=== PATIENT | female | born 1950 | race Caucasian/White ===

== ENCOUNTER 2018-03-25 19:20 | Emergency (ER) | payer MEDICARE, OTHER, SELFPAY ==
[2018-03-25 19:20] VITALS: BP 152/74; PULSE 75; RESP 16; TEMP 36.8; O2SAT 98; BMI 37.3
--- NOTE | 2018-03-25 19:38 | RAD_ITS ---
STUDY: X-RAY - RIGHT KNEE REASON FOR EXAM: Female, 68 years old. Trauma TECHNIQUE: 3 view(s) of the knee. COMPARISON: None. FINDINGS: There is no evidence of fracture or dislocation. There are mild degenerative changes. There are no radiodense foreign bodies. RAD/Knee 3 Views IMPRESSION: No fracture or dislocation. Mild degenerative changes. Electronically Signed: Mino Mejia, at 20:29 EDT Tel , Service support ,
--- NOTE | 2018-03-25 20:12 | ED.VISSUMM ---
- ER Visit Summary Date of Service: 03/25/18 Chief Complaint: Right knee injury History of Present Illness: The patient is a 68 F presenting for evaluation secondary to a right knee injury. Patient states that she has chronic right knee pain, but today she was at a jew event and she turned around to talk to somebody twisting her right knee. She felt a sudden shot of pain with her right knee, now she is having some difficulty with ambulating. She denies any laxity in the leg, numbness or weakness. Review of systems otherwise negative. Physical Examination: Physical exam is unremarkable except for examination of the right lower extremity. Normal range of motion of the hip ankle and foot. Range of motion of the knee is somewhat limited due to pain, but there is normal extensor mechanism. Difficult to assess for effusion versus ligamentous laxity due to the patient's body habitus. Test Results: Right knee x-ray per radiology demonstrates degenerative changes in the knee Emergency Department Course and Treatment: Patient presented secondary to a knee injury. X-rays are negative. Ligamentous testing in the knee is difficult, but the patient likely has an element of the knee sprain. She was given an Jason wrap and Naprosyn she was recommended on rest ice elevation and compression of follow-up with orthopedics if she does not start to have improvements in a week or 2. Disposition: Discharge Impression: 1. Right knee sprain This note was generated with [employer] dictation software. It may contain incorrect words, spelling, and punctuation that were not noted in review of the chart prior to signing ED Disposition - Plan for ED Patient: Disposition: Home or Assisted Living Chief Complaint: Lower Extremity Injury Diagnosis: Right knee sprain Instructions: ED Sprain Knee Referrals: Kwesi Hernandez DO [STAFF PHYSICIAN] - 10-14 Days if not better
--- NOTE | 2018-03-25 20:18 | ED.DCSUM_ITS ---
- ER Visit Summary Date of Service: 03/25/18 Chief Complaint: Right knee injury History of Present Illness: The patient is a 68 F presenting for evaluation secondary to a right knee injury. Patient states that she has chronic right knee pain, but today she was at a hinduism event and she turned around to talk to somebody twisting her right knee. She felt a sudden shot of pain with her right knee, now she is having some difficulty with ambulating. She denies any laxity in the leg, numbness or weakness. Review of systems otherwise negative. Physical Examination: Physical exam is unremarkable except for examination of the right lower extremity. Normal range of motion of the hip ankle and foot. Range of motion of the knee is somewhat limited due to pain, but there is normal extensor mechanism. Difficult to assess for effusion versus ligamentous laxity due to the patient's body habitus. Test Results: Right knee x-ray per radiology demonstrates degenerative changes in the knee Emergency Department Course and Treatment: Patient presented secondary to a knee injury. X-rays are negative. Ligamentous testing in the knee is difficult , but the patient likely has an element of the knee sprain. She was given an Jason wrap and Naprosyn she was recommended on rest ice elevation and compression of follow-up with orthopedics if she does not start to have improvements in a week or 2. Disposition: Discharge Impression: 1. Right knee sprain This note was generated with [employer] dictation software. It may contain incorrect words, spelling, and punctuation that were not noted in review of the chart prior to signing ED Disposition - Plan for ED Patient: Disposition: Home or Assisted Living Chief Complaint: Lower Extremity Injury Diagnosis: Right knee sprain Instructions: ED Sprain Knee Referrals: Kwesi Hernandez DO [STAFF PHYSICIAN] - 10-14 Days if not better
[2018-03-25] MEDS: Naproxen 500 MG Tablet PO (20:54)
[2018-03-25 21:00] VITALS: RESP 16
--- NOTE | 2018-03-25 21:00 | ED.RN ---
REVIEWED D/C INSTRUCTIONS, FOLLOW UP CARE, AND S/S THAT WOULD WARRANT A RETURN TO THE ED WITH PT. PT VERBALIZED AN UNDERSTANDING AND DENIES FURTHER QUESTIONS FOR THIS RN. PT SKIN P/W/D, RESP EVEN AND UNLABORED, PT A&O X 3, NO DISTRESS NOTED. PT AMBULATED OUT OF ED, GAIT STEADY.
== END 2018-03-25 21:01 | disposition home or self-care (01) ==
PROVIDERS: Emergency Provider Emergency Medicine; Family Provider Student in an Organized Health Care Education/Training Program; PCP Student in an Organized Health Care Education/Training Program
DX: S83.91XA Sprain of unspecified site of right knee, initial encounter (principal); X50.1XXA Overexertion from prolonged static or awkward postures, initial encounter; Y93.89 Activity, other specified; Y92.22 Religious institution as the place of occurrence of the external cause; Y99.8 Other external cause status; E66.9 Obesity, unspecified; Z68.37 Body mass index [BMI] 37.0-37.9, adult; I10 Essential (primary) hypertension; E78.00 Pure hypercholesterolemia, unspecified; Z79.82 Long term (current) use of aspirin; Z79.899 Other long term (current) drug therapy
CPT/HCPCS: 73562; 99283

== ENCOUNTER 2018-10-05 12:47 | Emergency (ER) | payer MEDICARE, OTHER, SELFPAY ==
[2018-10-05 12:55] VITALS: BP 192/76; PULSE 72; RESP 16; TEMP 36.6; O2SAT 100; BMI 34.4
--- NOTE | 2018-10-05 13:10 | RAD_ITS ---
STUDY: X-RAY - LEFT KNEE REASON FOR EXAM: Female, 68 years old. Pain. No injury. TECHNIQUE: 3 view(s) of the knee. COMPARISON: None. FINDINGS: Medial compartment mild joint margin osteophytic lipping, minimal of the lateral compartment, moderate of the patellofemoral compartment. No significant knee joint effusion is evident. Periarticular soft tissues normal. Osseous structures acutely intact. RAD/Knee 3 Views IMPRESSION: Tricompartmental DJD, moderate severity patellofemoral joint, mild medial compartment, minimal lateral compartment. Electronically Signed: Brian Anna MD at 15:28 EST Tel , Service support ,
[2018-10-05] MEDS: oxyCODONE 5 MG Tablet PO (13:30)
--- NOTE | 2018-10-05 15:33 | ED.VISSUMM ---
- ER Visit Summary Date of Service: 10/05/18 Chief Complaint: Atraumatic left knee pain and swelling History of Present Illness: The patient is a 68 F who presents with atraumatic left knee pain and swelling. She states she was sitting her leg was in a flexed position. Her leg was stuck in a flexed position. She is reluctant to move her leg. She states she had a similar episode in [place] right knee. She was in a flexed position when that occurred. She has no known history of patella subluxation or dislocation. She has no known history of ACL or meniscal injury. She has no history of gout or pseudogout. She has no history of autoimmune disorder. Physical Examination: Patient was examined initially in the hallway. She was moved to a room and undressed so that an exam could be performed. Patient was reluctant to flex or extend the left knee. She was able to hold against gravity at 120 degrees of extension. The patella is not ballotable. There is a small effusion. There is significant discomfort with varus valgus stress testing. There is no laxity compared to the uninvolved side. Once patient was medicated and undressed Luna's test was negative. Modified Judy's test was negative. There is minimal joint line tenderness medially. There is no pain to palpation of the palpable fossa nodes or palpable mass or fullness. DP and PT pulses are palpable. She states the pain resolved and she is now able to ask her knee and extend her knee. Patella apprehension test was positive. Test Results: Three-view x-ray of the knee was obtained which reveals no fracture or significant arthritic changes. There is a small effusion noted. Emergency Department Course and Treatment: Oral analgesia, examination and x-ray per nurse protocol Treatment Plan: Patient was referred to orthopedics for follow-up suspect patella subluxation Disposition: Discharged home in stable improved condition Impression: Atraumatic left knee pain suspect secondary to patella subluxation This note was generated with [employer] dictation software. It may contain incorrect words, spelling, and punctuation that were not noted in review of the chart prior to signing ED Disposition - Plan for ED Patient: Disposition: Home or Assisted Living Chief Complaint: Lower Extremity Injury Instructions: ED Dislocation Patella Prescriptions: Hydrocodone Bitart/Apap 5-325 [[place] 5MG-325MG] 1 tab PO Q6H PRN PRN 3 Days #10 tab PRN Reason: Pain Referrals: Edd Arizmendi DO [Primary Care Provider] - Radha Gomez DO [STAFF PHYSICIAN] - 1 Week
== END 2018-10-05 15:52 | disposition home or self-care (01) ==
PROVIDERS: Emergency Provider Emergency Medicine; Family Provider Student in an Organized Health Care Education/Training Program; PCP Student in an Organized Health Care Education/Training Program
DX: M25.562 Pain in left knee (principal); M25.462 Effusion, left knee; I10 Essential (primary) hypertension; Z79.899 Other long term (current) drug therapy
CPT/HCPCS: 73562; 99284

== ENCOUNTER 2018-11-16 10:00 | Outpatient (RCR) | payer MEDICARE, OTHER, SELFPAY ==
[2018-10-13 08:21] VITALS: BMI 34.4
--- NOTE | 2018-10-17 10:56 | HP.PTEVAL ---
Patient's Visit Information CLAUDIA GRADY is a 68 year old F referred to Physical Therapy by Radha Gomez DO with a diagnosis of B knee OA. Date of Evaluation: 10/17/18 Physical Therapist: Sean Nelson DPT, OCS, CSCS - Visit Plan Frequency: 2x /Week Duration: 4-6 Weeks Plan: 2x/week for 4-6 weeks for water therapy for quad and hip flexor stretches, quad and HS adn hip strength adn ROM exercises adn teach for I. may need to progress to land ex depends on patients desires. - Subjective Findings: Both knees hurt, a little painful. But they go out. R knee went out in March of last year pivotting and popping and hurting and had to grab wall quickly. L knee bothered her at [place] on October 05 walking at [place] and hard time moving. Could not get up out of chair due to locked L knee, called squad and took to ER and had x rays which showed OA PF. Gave a pill which helped with pain. Sent to Orthopedic. Ortho gave her brace for L leg which helps. On hydrocodone whcih she has not taken and sent for PT. Using cane today and doesn't always. Helps when she is outside. Lives [place] with gravel. Sleeps well. Doing cande ctivities just slowly. Not employed. Basic aDLS are OK but slow. 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 Hard to pick stuff up and carry it due to pain. Uses walker when it hurts more. - Pain L knee Pain Intensity (Out of 10): 0 Pain Intensity Range: 0, 2 R knee Pain Intensity (Out of 10): 0 Pain Intensity Range: 0, 2 - Objective Walks with cane slow but I, trasnfers slow but I. Walks without AD I btu slow, goes better as she walks more, no antalgia or matt today. steps prefers L LE and needs rail. Transferss to table with labor but I. B knee AROM 0-115 aROM, stiff at end range. strength 4/5 in knee ext adn 4- in knee flexion without pain today. hip AROM WFL except ext to 0 degrees only. Weak at 4-/5 hip ext and abd and 4/5 flexion. Sensation LE WNL to gross light touch. + patellar grind, - bounce home. Tender under patella B. - Goals Goal 1:: I approp knee ex to maximize ROM and minimize pain Goal Time Frame: 4-6 Weeks Goal 2:: Feel knees 75% better, pain no greater than 1/10 . Goal Time Frame: 4-6 Weeks - Rehabilitation Potential Physical Therapy Diagnosis: B Knee OA Rehabilitation Potential: Fair - Anticipated Interventions Patient/Client Instruction: Educate patient on: Condition, Plan of Care For the Purpose of:: To decrease pain, To increase ROM, To improve muscle performance and motor function Therapeutic Exercise to Include: Strength training, Flexibilty training, In an aquatic setting, Passive ROM, Active ROM For the Purpose of:: To decrease pain, To increase ROM, To improve nutrient delivery to tissue, To increase tolerance to activity/condition/position Thank you for the opportunity to evaluate your patient. For Medicare and Medicare HMO plans, please review the plan of care and approve it. It will need to be FAXED BACK to us at [phone] for Medicare purposes. For Medicare only, by signing this I certify the plan of care. Please let me know if there are questions or concerns regarding this plan of care. Physician Signature: Date:
--- NOTE | 2019-01-10 15:08 | HP.PTDCSUM ---
HP - PT D/C Summary It has been my pleasure to treat CLAUDIA GRADY under orders from Radha Gomez DO, for the diagnosis of B knee OA for a total of 8 visit(s). Discharge Date: 11/16/18 Please see the following information for a summary of their discharge status. - Subjective Subjective: Very impressed with the pool. No pain after water therapy. No real pain since therapy the other day. It is mostly gone. Notices it if she gets up wrong. Walking too fast may bother her. Sleeping well. To doctor next week. Has access to pool in summer. Doinmg a bunch exercises. - Pain L knee Pain Intensity (Out of 10): 0 R knee Pain Intensity (Out of 10): 0 - Overall Improvement % Improvement: 99 - Objective Objective/Function: 0-115 R knee aROM, 0-110 on left. No tenderness at knees today and ptellas moving well. Walking with slight avoidance of full extension but comfortably and happy. OVERALL DOING VERY WELL - Goals Goal 1:: I approp knee ex to maximize ROM and minimize pain Goal Progress: Goal Met Goal 2:: Feel knees 75% better, pain no greater than 1/10 . Goal Progress: Goal Met - Plan Plan: D/C to [facility], hot tub and pool at home in summer. - D/C Information Discharge Comments: Pt wishes to continue via [facility] and will notify doctor if pain returns. If there are questions or concerns regarding this patient's physical therapy, please feel free to call me at [phone]. Thank you for the referral of this patient. Sincerely, Sean Nelson, DPT, OCS, CSCS
== END 2018-11-16 19:00 | disposition home or self-care (01) ==
LOC: PT 10:00
PROVIDERS: Family Provider Student in an Organized Health Care Education/Training Program; PCP Student in an Organized Health Care Education/Training Program; Referring Provider Orthopaedic Surgery; Visit Provider Orthopaedic Surgery
DX: M17.0 Bilateral primary osteoarthritis of knee (principal)
CPT/HCPCS: 97113; 97162; 97530

== ENCOUNTER → 2019-12-06 09:49 | Outpatient (CLI) | payer MEDICARE, OTHER, SELFPAY ==
[2019-12-06 09:40] VITALS: BMI 34.4
[2019-12-06 10:21] LABS: Hemoglobin 13.8 g/dL (12.0-15.0); Mean Corp Hgb Conc 32.9 g/dL (32-36); Mean Corpuscular Hgb 29.6 pg (27.0-32.0); Mean Corpuscular Volume 89.9 fL (81-99); Mean Platelet Vol. 9.2 fl (6.2-12.0); Platelet Count 180 K/mm3 (150-450); RBC Distribution Width SD 42.4 fl (35.1-43.9); Red Blood Count 4.67 M/mm3 (4.2-5.4)
[2019-12-06 10:38] LABS: Hemoglobin A1c 6.8 % (4.2-6.3)
[2019-12-06 10:51] LABS: Vitamin B12 436 pg/mL (211-911)
[2019-12-06 11:05] LABS: AST(SGOT) 19 U/L (15-37); Alanine Aminotransfer ALT/SGPT 24 U/L (13-56); Alkaline Phosphatase 97 U/L (45-117); Anion Gap 3 (5-15); BUN 15 mg/dL (7-18); BUN/Creat Ratio 13.9 RATIO (10-20); Chloride 110 mmol/L (98-107); Creatinine, Serum 1.08 mg/dL (0.55-1.02); EST Glomerular Filtration Rate 54 mL/min (>60); Est Glom Filt Rate - Afr Amer 65 mL/min (>60); Glucose 141 mg/dL (74-106); Potassium 4.2 mmol/L (3.5-5.1); Sodium Level 141 mmol/L (136-145)
== END ==
PROVIDERS: PCP Student in an Organized Health Care Education/Training Program; Referring Provider Psychiatry & Neurology Neurology; Visit Provider Psychiatry & Neurology Neurology
DX: I69.322 Dysarthria following cerebral infarction (principal); I10 Essential (primary) hypertension; E11.9 Type 2 diabetes mellitus without complications; G31.84 Mild cognitive impairment of uncertain or unknown etiology
CPT/HCPCS: 36415; 80053; 82607; 82746; 83036; 84443; 85027

== ENCOUNTER → 2019-12-11 07:40 | Outpatient (CLI) | payer MEDICARE, OTHER, SELFPAY ==
[2019-12-06 09:40] VITALS: BMI 34.4
--- NOTE | 2019-12-11 07:42 | CDU_ITS ---
Reason For Study: CVA Rt. Velocities/BP Lt. Velocities/BP Prox CCA 112.5/12.1 cm/sec. Prox CCA 83.8/12.1 cm/sec. Mid CCA 93/13.4 cm/sec. Mid CCA 90.3/13.4 cm/sec. Dist CCA 79.9/16 cm/sec. Dist CCA 76/16 cm/sec. Prox ICA 59.1/9.5 cm/sec. Prox ICA 47.5/10.7 cm/sec. Mid ICA 89.1/21.3 cm/sec. Mid ICA 90/22 cm/sec. Dist ICA 93/21.3 cm/sec. Dist ICA 82.7/21.2 cm/sec. Rt. ICA/CCA = 1.0. Lt. ICA/CCA = 1.1. Prox ECA 112.5/8.2 cm/sec. Prox ECA 90.3/5.6 cm/sec. Rt. Vert. 63/13.4 cm/sec. Lt. Vert. 48.5/10.7 cm/sec. Right Extracranial There is homogeneous, smooth atherosclerotic plaque noted in the right common carotid artery. There is homogeneous, smooth atherosclerotic plaque noted in the right internal carotid artery. There is intimal thickening but no significant atherosclerotic plaque noted in the right external carotid artery. Antegrade flow is noted in the right vertebral artery. Left Extracranial There is homogeneous, smooth atherosclerotic plaque noted in the left common carotid artery. There is intimal thickening but no significant atherosclerotic plaque noted in the left internal carotid artery. There is no significant atherosclerotic plaque noted in the left external carotid artery. Antegrade flow is noted in the left vertebral artery. Procedure Carotid Duplex [id number]. Exam performed in department. Interpretation Summary Smooth plaque at the origin of the right internal carotid artery with less than 50% stenosis <50% stenosis right external carotid No hemodynamically significant plaque at the proximal left internal carotid artery with less than 50% stenosis. <50% stenosis left external carotid Patent, antegrade bilateral vertebrals Ordering Physician: Kelvin García Referring Physician: Edd Kong Performed By: Gaviota Cade RVT
== END ==
PROVIDERS: PCP Student in an Organized Health Care Education/Training Program; Referring Provider Psychiatry & Neurology Neurology; Visit Provider Psychiatry & Neurology Neurology
DX: R42 Dizziness and giddiness (principal)
CPT/HCPCS: 93880

== ENCOUNTER 2024-09-10 14:15 | Inpatient (IN) | payer MEDICARE, OTHER, SELFPAY ==
[2024-09-10 14:18] VITALS: BP 74/55; PULSE 77; RESP 16; TEMP 36.6; O2SAT 100; BMI 28.0
[2024-09-10 14:34] VITALS: BP 117/64; PULSE 70; RESP 28
--- NOTE | 2024-09-10 14:46 | EKG12_ITS ---
Test Reason : WEAKNESS Blood Pressure : */* mmHG Vent. Rate : 70 BPM Atrial Rate : 70 BPM P-R Int : 126 ms QRS Dur : 78 ms QT Int : 416 ms P-R-T Axes : 40 47 54 degrees QTcB Int : 449 ms Normal sinus rhythm Normal ECG Confirmed by Kwesi Irving ([id number]), supervising film or videotape editor NATAN TORRES ([id number]) on 09/12/2024 5:54:51 AM Referred By: Confirmed By: Kwesi Irving
--- NOTE | 2024-09-10 14:47 | EX.ED.DYSGE1 ---
HPI History of Present Illness Chief Complaint: Weakness Informant: patient, spouse/S.O. and EMS Narrative Narrative: 54-year-old female generalized weakness to the point of not being able to get up and around at all over maybe the past month or so. states he is not at home all the time due to working and so they have had home health and physical therapy but she is so weak that when they evaluated her today they called their PCP and all decided that she should be sent here to the ER. The patient has no focal complaints right now. Apparently, she was diagnosed with melanoma on her left lower leg/foot, she had it surgically removed and had skin graft. She was on oral immunotherapy and developed bullous pemphigoid in the summer and that had to be discontinued. She then developed a couple of lesions on her left lower leg more proximal to this, she has had other injections and treatments, a flareup of the bullous pemphigoid couple weeks ago, resulting in her being put on a prednisone taper, she has been on that for about 2 weeks now, and tapering at the end of it. Her appetite has been extremely poor and her fluid intake has been very poor. She does feel lightheaded at times when she stands up but she has had no syncopal or near syncopal episodes. She denies any headaches or focal neurologic symptoms. She vomits on occasion, no blood and no melena or bright red blood per rectum. Stools are loose when she has them which is uncommon since she is not eating. [facility] Medical History Tremor Obesity (BMI 35.0-39.9 without comorbidity) Primary osteoarthritis of both knees Postmenopausal disorder Microalbuminuria due to type 2 diabetes mellitus Hypercholesterolemia History of nephrolithiasis History of hypertension history of dyslipidemia Hypertension Diabetes Home Medications ?Medication ?Instructions ?Recorded ?Last Taken ?Type atorvastatin 10 mg tablet 10 mg PO QHS 03/25/18 Unknown History blood sugar diagnostic #10 ea 11/29/19 Unknown History lancets 33 gauge #100 ea 11/29/19 Unknown History lisinopril 20 mg tablet 20 mg PO DAILY #30 tabs 01/03/20 Unknown Rx aspirin 81 mg capsule 81 mg PO DAILY 09/10/24 Unknown History calcium 1,000 mg (as 1 tab PO DAILY osteoporosis 09/10/24 Unknown History carbonate)-vitamin D3 20 mcg (800 unit) tablet cholecalciferol (vitamin D3) 50 50 mcg PO DAILY 09/10/24 Unknown History mcg (2,000 unit) tablet (Vitamin D3) clobetasol 0.05 % topical ointment topical BID 09/10/24 Unknown History doxycycline monohydrate 100 mg 100 mg PO BID 09/10/24 Unknown History capsule metoprolol succinate 50 mg 50 mg PO DAILY 09/10/24 Unknown History tablet,extended release 24 hr ondansetron 8 mg disintegrating 8 mg PO Q8H PRN PRN nausea/vomiting 09/10/24 Unknown History tablet prednisone 10 mg tablet 10 mg PO DAILY RASH 09/10/24 Unknown History sertraline 50 mg tablet 50 mg PO QHS depressive disorder 09/10/24 Unknown History sulfamethoxazole 800 1 tab PO .COMPLEX 09/10/24 Unknown History mg-trimethoprim 160 mg tablet triamcinolone acetonide 0.1 % topical BID 09/10/24 Unknown History topical ointment Allergy/AdvReac Type Severity Reaction Status Date / Time adhesive tape Allergy Rash Verified 09/10/24 14:18 aspirin AdvReac Upset Verified 09/10/24 14:18 Stomach Family History (Updated 12/06/19 @ 08:44 by June Holt) Father , @ 75 Lung cancer Mother Colon cancer Heart disease CVA (cerebral vascular accident) Sudden cardiac Sister , at 60 Cancer Sister , at 45 Cancer of kidney Surgical History History of left knee replacement History of vaginal hysterectomy History of tonsillectomy History of colonoscopy h/o plantar fascitis surgery Social History Smoking Status: Never smoker alcohol intake: current details: Social substance use type: does not use what type of physical activity do you participate in: walking ROS ROS ED Constitutional Constitutional ED: Reports fatigue, poor appetite and weakness; Denies chills or fever(s) Eyes Eyes: Denies change in vision or diplopia ENT ENT ED: Denies rhinorrhea or sore throat Cardiovascular Cardiovascular: Denies chest pain or palpitations Respiratory/Chest Respiratory/Chest: Reports dyspnea on exertion; Denies cough or dyspnea Gastrointestinal Gastrointestinal: Reports vomiting; Denies abdominal pain or diarrhea Genitourinary Genitourinary ED: Reports decreased urination and drinking/eating less; Denies dysuria or hematuria Musculoskeletal Musculoskeletal: Denies back pain or neck pain Integumentary Denies abscess or rash Neurologic Neurologic: Reports other Details: No focal weakness. No speech difficulty. No confusion. ; Denies headache(s) or paresthesias Psychiatric Psychiatric: Denies anxiety or suicidal thoughts EXAM Physical Exam Const Vital Signs: 09/10/24 14:18 09/10/24 14:34 09/10/24 15:52 Temperature 97.8 F Temperature Source Oral Pulse Rate 77 70 65 Respiratory Rate 16 28 H 11 L Blood Pressure 74/55 L 117/64 108/63 Blood Pressure Mean 61 81 78 Pulse Ox 100 97 Oxygen Delivery Method Room Air Room Air 09/10/24 16:00 09/10/24 16:00 Temperature 98.7 F Temperature Source Oral Pulse Rate 66 65 Respiratory Rate 12 15 Blood Pressure 114/57 L 120/62 Blood Pressure Mean 74 81 Pulse Ox 98 97 Oxygen Delivery Method Room Air Room Air Positive well nourished and well developed General Appearance ED: well developed and NAD HEENT Reports dry mucous membranes normocephalic and atraumatic Mouth ED: Yes dry mucous membranes Mouth: dry mucous membranes Eyes PERRL and EOMs intact bilaterally Neck full ROM and supple Resp normal respiratory effort and clear to auscultation bilaterally Cardio regular rate, regular rhythm and no murmurs Rate: Negative for tachycardic GI non-tender and non-distended Auscultation: normoactive bowel sounds Palpation: soft Back/Spine no CVA tenderness General Back: other FROM Extremity normal to inspection General Extremety ED: Negative for edema, pulses abnormal or tenderness General Extremity: Negative for edema or pulses abnormal Neuro oriented x3, CN's II-XII intact bilaterally and no sensory deficits noted Sensorium / Orientation: awake and alert Motor Exam: general weakness Psych mental status grossly normal Skin Skin Narrative: Multiple healing lesions on both upper extremities, some scabs that are small, some healing ruptured bullae mostly on her left hand and wrist area. Nothing that appears to be acutely infected or tender. These are all from recent flareup of bullous pemphigoid according to . MDM MDM MDM Narrative Medical decision making narrative: Clinically patient appears weak and dehydrated. Her initial blood pressure here was 74/55 but prior to my evaluation I came up to 117/64. My guess is that she is hypovolemic so IV fluids provided while obtaining workup for metabolic disorders, hematologic disorders, infectious disorders. 1 view chest x-ray my interpretation is negative for pneumonia. Her EKG is normal. She has a high white blood count with a left shift, most likely due to the prednisone she has been on, as well as an elevated lactic acid as well as FUENTES presumably due to prerenal azotemia/dehydration, and mild hyperkalemia, she does not appear to have any significant EKG changes from this, so other than hydration and rechecking the potassium I do not think that needs other emergent treatment. I am obtaining blood cultures, but her urine appears clean and I see no obvious source of infection for her significant leukocytosis, also given the prednisone that she is on that explains this, until cultures return I do not think she needs to be on antibiotics right now. I do think admitting her to the hospital is warranted. Discussed with hospitalist. Lab Data Attestation: I reviewed the patient's lab results. Labs: Laboratory Results - last 24 hr 09/10/24 09/10/24 15:21 16:20 WBC 24.8 H RBC 4.51 Hgb 12.9 Hct 41.0 MCV 90.9 MCH 28.6 MCHC 31.5 L RDW Std Deviation 46.2 H RDW Coeff of Natali 13.9 Plt Count 102 L MPV 9.5 Immature Gran % (Auto) 2.400 H Neut % (Auto) 89.4 H Lymph % (Auto) 3.8 L [place] % (Auto) 4.2 Eos % (Auto) 0.0 Baso % (Auto) 0.2 Absolute Neuts (auto) 22.2 H Absolute Lymphs (auto) 0.94 Nucleated RBC % 0 Differential Comment SEE COMMENT Platelet Estimate SLT DEC RBC Morphology N CHROM Anisocytosis RARE Macrocytosis RARE Sodium 132 L Potassium 5.2 H Chloride 104 Carbon Dioxide 19.0 L Anion Gap 9 BUN 70 H Creatinine 2.13 H Estim Creat Clear Calc 29.32 Est GFR (MDRD) Af Amer 29 L Est GFR (MDRD) Non-Af 24 L BUN/Creatinine Ratio 32.9 H Glucose 133 H Lactic Acid 2.5 H* Calcium 9.3 Total Bilirubin 0.80 AST 46 H ALT 38 Alkaline Phosphatase 188 H Troponin I High Sens 8 Total Protein 6.2 L Albumin 2.3 L Globulin 3.9 Albumin/Globulin Ratio 0.6 L Urine Color Yellow Urine Clarity Clear Urine pH 5.0 Ur Specific [place] 1.020 Urine Protein 15 H Urine Glucose (UA) Normal Urine Ketones Negative Urine Occult Blood Negative Urine Nitrite Negative Urine Bilirubin Negative Urine Urobilinogen Normal Ur Leukocyte Esterase Negative Urine RBC 0-5 SEEN Urine WBC 5-10 SEEN Ur Squamous Epith Cells 0-5 SEEN Urine Bacteria RARE Hyaline Casts 0-5 SEEN Urine Mucus 1+ Radiography Diagnostic Testing: Clinical Impression(s) from Imaging Studies Chest X-Ray 09/10/24 15:25 IMPRESSION: No acute abnormality is seen. Electronically Signed: Taz Orr MD at 15:42 EST , Rhythm Strip Rhythm Strip: Sinus Rhythm Rate: 70 Ectopy: None EKG Initial EKG: Attestation: I personally reviewed and interpreted this EKG as follows: Interpretation: Sinus Rhythm and No Acute Injury Pattern Comments: Nml axis & intervals; nml EKG Management Discussion w/another healthcare provider: Hospitalist Discharge Plan Dx/Rx/DC Orders Clinical Impression: Debility, FUENTES (acute kidney injury), Acute dehydration, Hyperkalemia, diminished renal excretion Disposition Disposition: [facility]
[2024-09-10] MEDS: 0.9% Normal Saline (1000mL) 1,000 ML 1000 ML IV (15:19)
--- NOTE | 2024-09-10 15:25 | RAD_ITS ---
STUDY: X-RAY CHEST REASON FOR EXAM: Female, 74 years old. Weakness TECHNIQUE: Single AP portable view of the chest. COMPARISON: Comparison is made with prior study dated August 09, 2006. FINDINGS: EKG electrodes are seen. The lungs are clear and expanded. There is no demonstrated pleural abnormality. Normal size heart. Normal mediastinum and sisi. Normal visualized pulmonary arteries. There is atherosclerotic calcification of the aortic arch with tortuosity. There are diffuse degenerative changes of the visualized thoracic spine. Normal visualized ribs, clavicles, and shoulders. There is no demonstrated abnormality of the visualized soft tissue structures of the upper abdomen. RAD/Chest 1 View (Portable) IMPRESSION: No acute abnormality is seen. Electronically Signed: Taz Orr MD at 15:42 EST ,
[2024-09-10 15:31] LABS: Absolute Lymphocyte Count 0.94 X10^3/uL (0.83-4.51); Absolute Neutrophil Count 22.2 X10^3/uL (2.0-7.7); Basophil# 0.05 X10^3/uL; Basophil% 0.2 % (0-1); Hemoglobin 12.9 g/dL (12.0-15.0); Lymphocyte # 0.94 X10^3/ul (0.83-4.51); Lymphocyte % 3.8 % (19-41); Mean Corpuscular Hgb 28.6 pg (27.0-32.0); Mean Corpuscular Volume 90.9 fL (81-99); Mean Platelet Vol. 9.5 fl (6.2-12.0); Monocyte# 1.03 X10^3/uL; Monocyte% 4.2 % (0-10); NRBC Flagged by Analyzer 0 % (0-5); Neutrophil # 22.15 X10^3/uL (2.7-7.7); Neutrophil % 89.4 % (47-70); POSITIVE DIFFERENTIAL YES; Platelet Count 102 K/mm3 (150-450); RBC Distribution Width CV 13.9 % (11.6-14.6); RBC Distribution Width SD 46.2 fl (35.1-43.9); Red Blood Count 4.51 M/mm3 (4.2-5.4); White Blood Count 24.8 K/mm3 (4.4-11.0)
[2024-09-10 15:41] LABS: Differential Indicated SCAN CRITERIA MET
[2024-09-10 15:52] VITALS: BP 108/63; PULSE 65; RESP 11; O2SAT 97
[2024-09-10 15:55] LABS: Mean Corp Hgb Conc 31.5 g/dL (32-36)
[2024-09-10 15:56] LABS: Anisocytosis RARE; Macrocytosis RARE; Platelet Estimate SLT DEC (ADEQ); Red Cell Morphology N CHROM NORMAL (NORM C&C)
[2024-09-10 16:00] VITALS: BP 114/57; BP 120/62; PULSE 65; PULSE 66; RESP 12; RESP 15; TEMP 37.1; O2SAT 97; O2SAT 98
[2024-09-10 16:12] LABS: Lactic Acid 2.5 mmol/L (0.4-1.9)
[2024-09-10 16:13] LABS: ALB/GLOB Ratio 0.6 RATIO (0.9-2.4); AST(SGOT) 46 U/L (15-37); Alanine Aminotransfer ALT/SGPT 38 U/L (13-56); Albumin, Serum 2.3 g/dL (3.2-5.0); Alkaline Phosphatase 188 U/L (45-117); Anion Gap 9 (5-15); BUN 70 mg/dL (7-18); BUN/Creat Ratio 32.9 RATIO (10-20); Calcium,Total 9.3 mg/dL (8.5-10.1); Chloride 104 mmol/L (98-107); Creatinine, Serum 2.13 mg/dL (0.55-1.02); EST Glomerular Filtration Rate 24 mL/min (>60); Est Glom Filt Rate - Afr Amer 29 mL/min (>60); Estimated Creatinine Clearance 29.32 ml/min; Globulin 3.9 g/dL (2.2-4.2); Glucose 133 mg/dL (74-106); Potassium 5.2 mmol/L (3.5-5.1); Protein, Total 6.2 g/dL (6.4-8.2); Sodium Level 132 mmol/L (136-145); Troponin-I HS 8 pg/mL (3.0-54.0)
[2024-09-10 16:45] LABS: Color, Urine Yellow (Yellow); Glucose, Dipstick Normal (Normal); Ketone-Dipstick Negative (Negative); Leukocyte Esterase-Dipstick Negative /ul (Negative); Nitrite-Dipstick Negative (Negative); Occult Blood-Urine Negative /ul (Negative); Protein-Dipstick 15 mg/dl (Negative); Urine Bilirubin Dipstick Negative (Negative); Urine Clarity Clear (Clear); Urine Urobilinogen Normal (Normal)
[2024-09-10 16:58] LABS: Hyaline Cast 0-5 SEEN /lpf (0-5); Squamous Epithelial Cells - UA 0-5 SEEN /hpf (5-10); White Blood Cells 5-10 SEEN /hpf (0-5)
[2024-09-10 17:00] LABS: Bacteria RARE /hpf (None Seen); Mucous, Urine 1+ /hpf (<or=2+); Red Blood Cells-Urine 0-5 SEEN /hpf (0-5)
[2024-09-10 18:00] VITALS: BP 117/62; PULSE 67; RESP 15; TEMP 36.6; O2SAT 99
--- NOTE | 2024-09-10 18:33 | PCM.HP.STD ---
HPI - General General Date of Admission: 09/10/24 Date of Service: 09/10/24 Chief Complaint: generalized weakness HPI Narrative CLAUDIA GRADY, is a 74 F with history of melanoma status post removal, bullous pemphigoid after immunotherapy with recent flare, hypertension, depression who presented [facility] ED 09/10/2024 with increasing weakness and poor p.o. intake over the past few weeks. In the ED patient had white blood cell count of 25 but was found to be on steroids, sodium of 132 with potassium of 5.2 and a BUN of 70 with creatinine of 2.13 however no lab work in the past several years for recent baseline. Additionally lactic acid of 2.5. Patient overall weak and feeling unwell, initially blood pressure low but came up with IV fluids. Due to her generalized weakness, suspected FUENTES, generally doing unwell hospitalist contacted for admission. Discussed with ED physician and patient has no fever, no other focal suggestions of infection so cultures obtained but no antibiotics were started. Patient evaluated with at bedside who provided much of the history. Patient has been generally weak and had very poor p.o. intake over the past several weeks and over the past 4 days has further declined to the point where she hardly gets up more than just to go to the bathroom but has had decreased urination due to her poor p.o. intake. Gets some occasional nausea but this has been attributed to not eating much food and still taking her medications. Has had some intermittent loose stool, no blood in the stool, no abdominal pain. Of note she has history of melanoma that was removed and was placed on immunotherapy over the summer she developed bullous pemphigoid due to this so it was stopped but still gets flares of bullous pemphigoid. 2 weeks ago she had another flare and has been on steroids since that time on a tapering course, is towards the end but is still on steroids. Has been getting some dizziness occasionally, some possible shortness of breath and possible cough but patient and report this is secondary and is also been over the past couple of weeks but the weakness and poor p.o. preceded anything else. No fevers or chills, no burning on urination. Patient still has some lesions of her pemphigoid however they are significantly improved from previous and they do not note any of them that appear to be infected. [facility] Medical History Tremor Obesity (BMI 35.0-39.9 without comorbidity) Primary osteoarthritis of both knees Postmenopausal disorder Microalbuminuria due to type 2 diabetes mellitus Hypercholesterolemia History of nephrolithiasis History of hypertension history of dyslipidemia Hypertension Diabetes Home Medications ?Medication ?Instructions ?Recorded ?Last Taken ?Type atorvastatin 10 mg tablet 10 mg PO QHS 03/25/18 Unknown History blood sugar diagnostic #10 ea 11/29/19 Unknown History lancets 33 gauge #100 ea 11/29/19 Unknown History lisinopril 20 mg tablet 20 mg PO DAILY #30 tabs 01/03/20 Unknown Rx aspirin 81 mg capsule 81 mg PO DAILY 09/10/24 Unknown History calcium 1,000 mg (as 1 tab PO DAILY osteoporosis 09/10/24 Unknown History carbonate)-vitamin D3 20 mcg (800 unit) tablet cholecalciferol (vitamin D3) 50 50 mcg PO DAILY 09/10/24 Unknown History mcg (2,000 unit) tablet (Vitamin D3) clobetasol 0.05 % topical ointment topical BID 09/10/24 Unknown History doxycycline monohydrate 100 mg 100 mg PO BID 09/10/24 Unknown History capsule metoprolol succinate 50 mg 50 mg PO DAILY 09/10/24 Unknown History tablet,extended release 24 hr ondansetron 8 mg disintegrating 8 mg PO Q8H PRN PRN nausea/vomiting 09/10/24 Unknown History tablet prednisone 10 mg tablet 10 mg PO DAILY RASH 09/10/24 Unknown History sertraline 50 mg tablet 50 mg PO QHS depressive disorder 09/10/24 Unknown History sulfamethoxazole 800 1 tab PO .COMPLEX 09/10/24 Unknown History mg-trimethoprim 160 mg tablet triamcinolone acetonide 0.1 % topical BID 09/10/24 Unknown History topical ointment Allergy/AdvReac Type Severity Reaction Status Date / Time adhesive tape Allergy Rash Verified 09/10/24 14:18 aspirin AdvReac Upset Verified 09/10/24 14:18 Stomach Family History (Updated 12/06/19 @ 08:44 by June Holt) Father , @ 75 Lung cancer Mother Colon cancer Heart disease CVA (cerebral vascular accident) Sudden cardiac Sister , at 60 Cancer Sister , at 45 Cancer of kidney Surgical History History of left knee replacement History of vaginal hysterectomy History of tonsillectomy History of colonoscopy h/o plantar fascitis surgery Social History Smoking Status: Never smoker alcohol intake: current details: Social substance use type: does not use what type of physical activity do you participate in: walking ROS ROS Narrative General: Denies fever/chills HENT: denies stuffy nose, denies sore throat EYES: Denies changes in vision Resp: Some intermittent cough and intermittent shortness of breath with exertion Cardiac: Denies chest pain GI: Denies abdominal pain, some intermittent nausea and intermittent loose stools : No burning on urination, perhaps some decreased urination due to her poor p.o. intake Extremity: Denies any new swelling MSK: Generalized weakness Neuro: Denies any numbness/tingling Heme: Denies any bleeding or bruising Skin: Bullous pemphigoid especially on hands in process of healing Psychiatric: No complaints voiced Vital Signs Vital Signs Vital Signs: 09/10/24 14:18 09/10/24 14:34 09/10/24 15:52 Temperature 97.8 F Temperature Source Oral Pulse Rate 77 70 65 Respiratory Rate 16 28 H 11 L Blood Pressure 74/55 L 117/64 108/63 Blood Pressure Mean 61 81 78 Pulse Ox 100 97 Oxygen Delivery Method Room Air Room Air 09/10/24 16:00 09/10/24 16:00 09/10/24 18:00 Temperature 98.7 F 97.8 F Temperature Source Oral Pulse Rate 66 65 67 Respiratory Rate 12 15 15 Blood Pressure 114/57 L 120/62 117/62 Blood Pressure Mean 74 81 80 Pulse Ox 98 97 99 Oxygen Delivery Method Room Air Room Air Weight Weight: 91.172 kg Body Mass Index (BMI) 28.0 Physical Exam Narrative General: Alert, no apparent distress HEENT: Atraumatic, normocephalic Eyes: Anicteric, normal conjunctiva, extraocular movements grossly intact Neck: Supple Respiratory: Clear to auscultation bilaterally, normal respiratory effort Cardiovascular: Regular rate and rhythm GI: Soft, nontender, nondistended Extremities: No edema Musculoskeletal: Moving all extremities Neuro: No overt focal neurological deficits Skin: Lesions on chin and hands in various phases of healing, nothing with active drainage appreciated Psych: Cooperative Results Lab / Micro Data 09/10/24 15:21 09/10/24 15:21 Labs: Laboratory Results - last 24 hr 09/10/24 15:21: WBC 24.8 H, RBC 4.51, Hgb 12.9, Hct 41.0, MCV 90.9, MCH 28.6, MCHC 31.5 L, RDW Std Deviation 46.2 H, RDW Coeff of Natali 13.9, Plt Count 102 L, MPV 9.5, Immature Gran % (Auto) 2.400 H, Neut % (Auto) 89.4 H, Lymph % (Auto) 3.8 L, [place] % (Auto) 4.2, Eos % (Auto) 0.0, Baso % (Auto) 0.2, Absolute Neuts (auto) 22.2 H, Absolute Lymphs (auto) 0.94, Nucleated RBC % 0, Differential Comment SEE COMMENT, Platelet Estimate SLT DEC, RBC Morphology N CHROM, Anisocytosis RARE, Macrocytosis RARE, Sodium 132 L, Potassium 5.2 H, Chloride 104, Carbon Dioxide 19.0 L, Anion Gap 9, BUN 70 H, Creatinine 2.13 H, Estim Creat Clear Calc 29.32, Est GFR (MDRD) Af Amer 29 L, Est GFR (MDRD) Non-Af 24 L, BUN/Creatinine Ratio 32.9 H, Glucose 133 H, Lactic Acid 2.5 H*, Calcium 9.3, Total Bilirubin 0.80, AST 46 H, ALT 38, Alkaline Phosphatase 188 H, Troponin I High Sens 8, Total Protein 6.2 L, Albumin 2.3 L, Globulin 3.9, Albumin/Globulin Ratio 0.6 L 09/10/24 16:20: Urine Color Yellow, Urine Clarity Clear, Urine pH 5.0, Ur Specific [place] 1.020, Urine Protein 15 H, Urine Glucose (UA) Normal, Urine Ketones Negative, Urine Occult Blood Negative, Urine Nitrite Negative, Urine Bilirubin Negative, Urine Urobilinogen Normal, Ur Leukocyte Esterase Negative, Urine RBC 0-5 SEEN, Urine WBC 5-10 SEEN, Ur Squamous Epith Cells 0-5 SEEN, Urine Bacteria RARE, Hyaline Casts 0-5 SEEN, Urine Mucus 1+ Rhythm Strip Rhythm Strip: Sinus Rhythm Rate: 70 Ectopy: None Imaging Radiology Impression Chest X-Ray 09/10/24 15:25 IMPRESSION: No acute abnormality is seen. Electronically Signed: Taz Orr MD at 15:42 EST , Assessment & Plan Assessment/Plan (1) FUENTES (acute kidney injury): PLAN: Plan # Acute kidney failure -Creatinine 2.13 with a BUN of 70, no other recent values but previously had been around 1 and patient has had very poor p.o. intake so suspect that this is FUENTES -Intake and output -Check kidney and bladder ultrasound -Check urine lytes # Generalized weakness -Possibly secondary to steroids and significant decrease in p.o. intake -PT/OT -Case management -IV fluids -Check magnesium and B12 and TSH #Leukocytosis -Suspect secondary to steroids given patient's lack of specific focal complaint -Chest x-ray within normal limits -Has had some intermittent diarrhea, given unclear cause of leukocytosis, though lower suspicion of infection, will check stool studies -Will check blood cultures -Check COVID -Vitally stable with improvement in blood pressure after IV fluids with no antibiotics -Will hold antibiotics unless patient worsens or is febrile or any cultures are positive # Bullous pemphigoid -Patient at the end of her taper and her bullous pemphigoid is significantly improved per , will continue taper though noted this may be contributing to her weakness but lesions are not completely healed for bullous pemphigoid -Patient on Bactrim and doxycycline prescribed to her by her court collections officer Dr. Breann Britt in [place] #Hypertension -Holding home medications given her borderline blood pressure on presentation # Hyperkalemia -Admit to telemetry -IV fluids -Will repeat -Appears patient takes Bactrim which may have contributed to this # History of melanoma status post immunotherapy and removal -On leg -Noted #Type 2 diabetes mellitus -Per history though does not appear to be on any current agents -Glucose checks and sliding scale insulin #Depression/anxiety -Continue home medications #DVT ppx: Lovenox subcu Latricia Orta MD Charges/Coding Visit Charges Inpatient E&M: 67730 Init Hosp L2
--- NOTE | 2024-09-10 19:10 | CASEMGMT ---
Care Management Face to Face with patient for initial transition planning/care coordination assessment.? This magnetic tape typewriter operator introduced self and role at [facility]. Patient lying in bed, alert. Patient willing to participate in assessment, was at bedside and permission given for him to participate.? Care providers, pharmacy, and demographics verified. Admitting Diagnosis: Debility, FUENTES, Hyperkalemia, acute dehydration Other diagnosis history: cancer, diabetes PCP: Dr. Arizmendi Specialists:? none at this time Preferred Pharmacy: [facility] Insurance: Medicare/[employer] Prescription Benefit:? yes Living Will/HPOA: Patient has both, to bring in copy when able LNOK: [facility] Living Arrangements:? Patient lives with in a two-story home. ?There is a ramp to enter. Patient is living on the first floor, sleeping on a sofa/pull out bed.? There is a bathroom on the first floor.? She does not access the second floor.? ADL Care:? Patients is providing all ADL care.? He prepares her meals, gives her medications, bathes her, toilets her and dresses her. In the last three to four days, patient has not been eating or drinking well.? states she will only take a bite or two and drink very limited amounts.? ? states that she can stand with his assistance, is able to pivot slowly.? She is not on any oxygen.? He states he is unable to leave her alone. Transportation: Patient does not drive, states he had her in a vehicle a few weeks ago but was unable to get her into one today, she was brought to the ER via EMS. DME: Walker, shower chair, walk in tub, grab bars in the tub HHC:? Patient has physical and occupational therapy that come to the home 2 days a week, a nurse and a SW.? No home health aides.?? Community Resources: None Behavioral Health History:? None Patient goals: Patient wishes to discharge home, patient and would like home health aides if available. Disposition Plan: CM to follow for discharge planning needs that may arise, which may include additional DME and home health aides.? Patricia Cortez, CAR CHASER, BALL SORTER
--- NOTE | 2024-09-10 19:20 | US_ITS ---
EXAM: US RETROPERITONEAL LIMITED, RENAL CLINICAL INDICATION: suspect renal failure TECHNIQUE: Limited grayscale and color Doppler sonographic evaluation of the retroperitoneum was performed. COMPARISON: No relevant prior studies available. FINDINGS: RIGHT KIDNEY: The right kidney is somewhat echogenic. No hydronephrosis. No shadowing calculus. No perinephric collection is demonstrated. The right kidney measures 10.5 cm in length. LEFT KIDNEY: The left kidney is somewhat echogenic. No hydronephrosis. No shadowing calculus. No perinephric collection is demonstrated. The left kidney measures 9.8 cm in length. BLADDER: The ureteral jets are not visualized. No bladder wall thickening. US/Kidney and Bladder IMPRESSION: Medical renal disease. No hydronephrosis or focal renal abnormality. Electronically Signed: Fabricio Villanueva DO at 23:28 EST ,
[2024-09-10 19:26] LABS: Reflex Lactate? Y
[2024-09-10 19:37] VITALS: BMI 26.9
[2024-09-10 20:00] VITALS: BP 125/54; PULSE 64; RESP 18; TEMP 36.8; O2SAT 97
[2024-09-10 20:35] LABS: Anion Gap 7 (5-15); BUN 68 mg/dL (7-18); BUN/Creat Ratio 36.8 RATIO (10-20); Calcium,Total 9.3 mg/dL (8.5-10.1); Chloride 106 mmol/L (98-107); Creatinine, Serum 1.85 mg/dL (0.55-1.02); EST Glomerular Filtration Rate 28 mL/min (>60); Est Glom Filt Rate - Afr Amer 34 mL/min (>60); Estimated Creatinine Clearance 33.16 ml/min; Glucose 103 mg/dL (74-106); Potassium 4.6 mmol/L (3.5-5.1); Sodium Level 136 mmol/L (136-145)
[2024-09-10 20:39] LABS: Lactic Acid 1.7 mmol/L (0.4-1.9)
[2024-09-10] MEDS: Sertraline 50 MG Tablet PO (21:18)
[2024-09-10] MEDS: Atorvastatin Calcium 10 MG Tablet PO (21:18)
[2024-09-10] MEDS: Doxycycline 100 MG CAPSULE PO (21:18)
[2024-09-10] MEDS: Heparin Injection (Vial) 5,000 UNIT/ML VIAL 5000 UNIT SC (21:34)
[2024-09-10] MEDS: 0.9% Normal Saline (1000mL) 1,000 ML 100 ML IV (22:00)
[2024-09-11 00:09] LABS: Bedside Glucose 102 mg/dL (74-106)
[2024-09-11 01:37] LABS: Urea Nitrogen, Urine 1299 mg/dL (NO RANGE EST.); Urine Chloride 23 mmol/L (Not Establ.); Urine Sodium 41 mmol/L (Not Establ.)
[2024-09-11 01:48] LABS: Osmolality, Urine 702 mOsm/KG
[2024-09-11 03:30] VITALS: BP 144/59; PULSE 80; RESP 18; TEMP 36.5; O2SAT 98
[2024-09-11 06:25] LABS: Absolute Lymphocyte Count 0.95 X10^3/uL (0.83-4.51); Absolute Neutrophil Count 19.7 X10^3/uL (2.0-7.7); Basophil# 0.05 X10^3/uL; Basophil% 0.2 % (0-1); Eosinophil# 0.01 X10^3/uL; Hematocrit 34.6 % (37-47); Hemoglobin 11.1 g/dL (12.0-15.0); Lymphocyte # 0.95 X10^3/ul (0.83-4.51); Lymphocyte % 4.3 % (19-41); Mean Corp Hgb Conc 32.1 g/dL (32-36); Mean Corpuscular Hgb 28.9 pg (27.0-32.0); Mean Corpuscular Volume 90.1 fL (81-99); Monocyte# 0.89 X10^3/uL; Monocyte% 4.1 % (0-10); NRBC Flagged by Analyzer 0 % (0-5); Neutrophil # 19.66 X10^3/uL (2.7-7.7); Neutrophil % 89.8 % (47-70); Platelet Count 118 K/mm3 (150-450); RBC Distribution Width SD 45.2 fl (35.1-43.9); Red Blood Count 3.84 M/mm3 (4.2-5.4); White Blood Count 21.9 K/mm3 (4.4-11.0)
[2024-09-11] MEDS: Heparin Injection (Vial) 5,000 UNIT/ML VIAL 5000 UNIT SC ×3 (06:38→22:59)
[2024-09-11 07:02] LABS: ALB/GLOB Ratio 0.6 RATIO (0.9-2.4); AST(SGOT) 47 U/L (15-37); Alanine Aminotransfer ALT/SGPT 35 U/L (13-56); Albumin, Serum 2.2 g/dL (3.2-5.0); Alkaline Phosphatase 202 U/L (45-117); Anion Gap 7 (5-15); BUN 67 mg/dL (7-18); BUN/Creat Ratio 37.6 RATIO (10-20); Calcium,Total 8.9 mg/dL (8.5-10.1); Chloride 110 mmol/L (98-107); Creatinine, Serum 1.78 mg/dL (0.55-1.02); EST Glomerular Filtration Rate 30 mL/min (>60); Est Glom Filt Rate - Afr Amer 36 mL/min (>60); Estimated Creatinine Clearance 34.47 ml/min; Globulin 3.4 g/dL (2.2-4.2); Glucose 110 mg/dL (74-106); Magnesium 2.1 mg/dL (1.6-2.6); Phosphorus 2.3 mg/dL (2.5-4.9); Potassium 4.7 mmol/L (3.5-5.1); Protein, Total 5.6 g/dL (6.4-8.2); Sodium Level 136 mmol/L (136-145)
[2024-09-11 07:06] LABS: Bedside Glucose 111 mg/dL (74-106)
[2024-09-11 08:29] LABS: Vitamin B12 1276 pg/mL (211-911)
[2024-09-11 08:50] VITALS: O2SAT 99
[2024-09-11 09:04] VITALS: BP 137/55; PULSE 60; RESP 18; TEMP 35.9; O2SAT 99
[2024-09-11 09:16] LABS: Hemoglobin A1c 6.9 % (3.8-5.6)
--- NOTE | 2024-09-11 10:50 | CASEMGMT ---
RN IMELDA Face to Face with patient for initial transition planning/care coordination assessment. RN CM introduced self and role at [facility]. Patient sitting in chair, alert and confused, at bedside. willing to participate in assessment and is able to answer all questions appropriately. Care providers, pharmacy, and demographics verified. Strata: 3 PCP: Ugo Specialists: none Preferred Pharmacy: [facility] Insurance: MCR, [employer] Prescription Benefit: yes Living Will/HPOA: yes, [place]NOK: Living Arrangements: Patient lives with in a 2 story home with bed and bath on first floor, ramp to enter the home. has been assisting patient with ADLs Transportation: DME/HHC: shower chair, raised toilet, grab bars at home. Patient is currently active with [facility]. No previous SNF Therapy is recommending SNF at discharge. agreeable to with therapy recommendation for SNF. SNF list provided to and asked to review and provide preferences, voiced understanding states he has no further needs or concerns at this time. SW updated regarding request for SNF. CM to follow for discharge planning needs that may arise. Disposition Plan: SNF pending acceptance Gaviota KINGSTON, RN, CM
--- NOTE | 2024-09-11 11:36 | CASEMGMT ---
Discharge Planning A list of?SNF providers including quality and resource use data and consistent with the patient's preferred geographic region, medical needs, and insurance network was created in [employer] Guide.? This list was provided to the pts . Cecilia Ward, Discharge Planning Asst.
[2024-09-11 12:06] LABS: Bedside Glucose 110 mg/dL (74-106)
--- NOTE | 2024-09-11 14:28 | CASEMGMT ---
PAULINE met with patient's [place]. PAULINE introduced self and role at [facility]. PAULINE asked Antione if he has chosen any facilities. Antione said he would like TCU. PAULINE let him know that SW can make a referral to TCU, but he should review the list and pick some alternate choices in case TCU is not available. PAULINE made a referral to [facility] TCU. Susan GAUTAM
[2024-09-11 16:30] VITALS: BP 128/105; PULSE 94; RESP 20; TEMP 35.9; O2SAT 100
--- NOTE | 2024-09-11 16:30 | PN.HOSP_ITS ---
Reason for Visit Reason for Visit: Diagnoses Acute kidney failure, unspecified (09/10/24) Subjective Subjective Patient was seen and examined today, I had difficulty with the patient caring on an intelligible conversation with me, patient was a poor informant and exhibited some mild confusion. Nursing talked with the patient's , patient's states that the patient has been having problems over the last few weeks with debility and confusion. Outpatient imaging testing has been ordered by her physicians to rule out recurrence of melanoma. Patient's told discharge planning and social service technician that he wishes the patient to be placed in a skilled facility for short-term rehab services. Patient's creatinine today was improved, repeat labs will be obtained tomorrow Objective Data Objective Data Vital Signs: Vital Signs Temp Pulse Resp BP Pulse Ox O2 Del Method 96.7 F L 60 18 137/55 H 99 Room Air 09/11/24 09:04 09/11/24 09:04 09/11/24 09:04 09/11/24 09:04 09/11/24 09:04 09/11/24 09:04 Oxygen Delivery Method Room Air Weight: 87.7 kg Body Mass Index (BMI) 26.9 Intake & Output: Intake and Output for Last 24 Hours 09/09/24 09/10/24 09/11/24 23:59 23:59 23:59 Intake Total 1000 / 1250 1450 / 1450 Output Total 30 / 180 400 / 400 Balance 970 / 1070 1050 / 1050 Lab / Micro Data 09/11/24 05:55 09/11/24 05:55 Labs: Laboratory Results - last 24 hr 09/10/24 16:20: Urine Color Yellow, Urine Clarity Clear, Urine pH 5.0, Ur Specific [place] 1.020, Urine Protein 15 H, Urine Glucose (UA) Normal, Urine Ketones Negative, Urine Occult Blood Negative, Urine Nitrite Negative, Urine Bilirubin Negative, Urine Urobilinogen Normal, Ur Leukocyte Esterase Negative, Urine RBC 0-5 SEEN, Urine WBC 5-10 SEEN, Ur Squamous Epith Cells 0-5 SEEN, Urine Bacteria RARE, Hyaline Casts 0-5 SEEN, Urine Mucus 1+ 09/10/24 20:10: Sodium 136, Potassium 4.6, Chloride 106, Carbon Dioxide 23.0, Anion Gap 7, BUN 68 H, Creatinine 1.85 H, Estim Creat Clear Calc 33.16, Est GFR (MDRD) Af Amer 34 L, Est GFR (MDRD) Non-Af 28 L, BUN/Creatinine Ratio 36.8 H, Glucose 103, Lactic Acid 1.7, Calcium 9.3 09/10/24 21:27: POC Glucose 102 09/11/24 00:35: Urine Osmolality 702, Ur Random Sodium 41, Urine Creatinine 156.00, Urine Potassium 61.0, Urine Chloride 23, Urine Urea Nitrogen 1299 09/11/24 05:55: WBC 21.9 H, RBC 3.84 L, Hgb 11.1 L, Hct 34.6 L, MCV 90.1, MCH 28.9, MCHC 32.1, RDW Std Deviation 45.2 H, RDW Coeff of Natali 14.0, Plt Count 118 L, MPV 10.0, Immature Gran % (Auto) 1.600 H, Neut % (Auto) 89.8 H, Lymph % (Auto) 4.3 L, [place] % (Auto) 4.1, Eos % (Auto) 0.0, Baso % (Auto) 0.2, Absolute Neuts (auto) 19.7 H, Absolute Lymphs (auto) 0.95, Nucleated RBC % 0, Sodium 136, Potassium 4.7, Chloride 110 H, Carbon Dioxide 19.0 L, Anion Gap 7, BUN 67 H, C reatinine 1.78 H, Estim Creat Clear Calc 34.47, Est GFR (MDRD) Af Amer 36 L, Est GFR (MDRD) Non-Af 30 L, BUN/Creatinine Ratio 37.6 H, Glucose 110 H, Hemoglobin A1c 6.9 H, Calcium 8.9, Phosphorus 2.3 L, Magnesium 2.1, Total Bilirubin 0.70, A ST 47 H, ALT 35, Alkaline Phosphatase 202 H, Total Protein 5.6 L, Albumin 2.2 L, Globulin 3.4, Albumin/Globulin Ratio 0.6 L, Vitamin B12 1276 H, TSH 1.330 09/11/24 06:44: POC Glucose 111 H 09/11/24 11:39: POC Glucose 110 H Micro: Microbiology 09/11/24 00:35 Stool Enteric Bacteriology - Final 09/11/24 00:35 Stool Clostridioides difficile (PCR) - Final 09/10/24 21:15 Mucosa - Nose SARS-CoV-2, Influenza & RSV (PCR) - Final Radiography Diagnostic Testing: Radiology Impression Renal Ultrasound 09/10/24 19:20 IMPRESSION: Medical renal disease. No hydronephrosis or focal renal abnormality. Electronically Signed: Fabricio Villanueva DO at 23:28 EST , Rhythm Strip Rhythm Strip: Sinus Rhythm Rate: 70 Ectopy: None Physical Exam Const alert and no apparent distress General Appearance: cooperative, well kempt and well developed Orientation / Consciousness: awake, oriented to person and oriented to place HEENT normocephalic, head/scalp atraumatic and moist oral mucous membranes Eyes PERRL, EOMs intact bilaterally and conjunctivae normal Neck supple, no JVD, thyroid normal and no carotid bruits General: trachea midline Resp normal respiratory effort, no retractions, no use of accessory muscles and clear to auscultation bilaterally Auscultation: Negative for rales, rhonchi or wheezes Cardio regular rate, regular rhythm, S1 normal heart sound, S2 normal heart sound, no murmurs, no rub and no gallops GI normal to inspection, nondistended, normoactive bowel sounds, soft to palpation, non-tender and non-distended Extremity no clubbing, cyanosis or edema Skin no rashes or lesions noted General Skin Exam: no breakdown Neuro CN's II-XII intact bilaterally, moves all extremities, no focal motor deficits and no sensory deficits noted Neuro Narrative: Patient is a poor informant, she exhibits some mild confusion/cognitive impairment at the time my examination Sensorium / Orientation: awake, alert, oriented to person and oriented to place Speech: speech normal Psych Psych Narrative: Patient exhibits some mild confusion Assessment & Plan Assessment/Plan (1) Acute dehydration: PLAN: Plan 1. Elevated creatinine due to dehydration-I will administer another 2000 cc of IV fluid and recheck the patient's BMP tomorrow. #2 acute debility-PT and OT are seeing patient, she will need short-term placement in assisted facility #3 cognitive impairment-etiology unclear at this point, supportive care will be given to the patient #4 type 2 diabetes-patient's blood sugars will be monitored, sliding scale insulin will be administered as needed #5 chronic depression-patient is on Zoloft #6 hyperlipidemia-patient is on a statin #7 bullous pemphigoid-patient will remain on her outpatient medications #8 past history of melanoma-patient is due to get outpatient imaging studies performed according to her Total clinical time spent by myself addressing the patient's medical issues, reviewing all of her data, and collaborating with patient's care team: 35 minutes Charges/Coding Visit Charges Inpatient E&M: 03141 Subs Hosp L2
[2024-09-11] MEDS: 0.9% Normal Saline (1000mL) 1,000 ML 75 ML IV (16:59)
[2024-09-11 17:31] LABS: Bedside Glucose 125 mg/dL (74-106)
[2024-09-11] MEDS: Clobetasol Propionate 0.05% Ointment 1 APPLIC TOPICAL (22:15)
[2024-09-11] MEDS: Triamcinolone 0.1% Ointment 15 gm tube 1 APPLIC TOPICAL (22:16)
[2024-09-11] MEDS: Atorvastatin Calcium 10 MG Tablet PO (22:17)
[2024-09-11] MEDS: Doxycycline 100 MG CAPSULE PO (22:17)
[2024-09-11] MEDS: Sertraline 50 MG Tablet PO (22:17)
[2024-09-11] MEDS: Menthol/Lanolin/Calamine/Znox 113 GM Tube 1 APPLIC TOPICAL (22:19)
[2024-09-11 22:30] VITALS: BP 144/70; PULSE 82; RESP 18; TEMP 36.8; O2SAT 98
[2024-09-12 04:30] VITALS: BP 156/88; PULSE 80; RESP 18; TEMP 36.5; O2SAT 97
[2024-09-12] MEDS: Heparin Injection (Vial) 5,000 UNIT/ML VIAL 5000 UNIT SC ×3 (06:30→20:17)
[2024-09-12 06:31] LABS: Bedside Glucose 100 mg/dL (74-106)
[2024-09-12 07:31] LABS: Bedside Glucose 108 mg/dL (74-106)
[2024-09-12 08:05] LABS: Anion Gap 7 (5-15); BUN 63 mg/dL (7-18); BUN/Creat Ratio 38.7 RATIO (10-20); Calcium,Total 9.1 mg/dL (8.5-10.1); Chloride 111 mmol/L (98-107); Creatinine, Serum 1.63 mg/dL (0.55-1.02); EST Glomerular Filtration Rate 33 mL/min (>60); Est Glom Filt Rate - Afr Amer 40 mL/min (>60); Estimated Creatinine Clearance 37.64 ml/min; Glucose 122 mg/dL (74-106); Potassium 4.4 mmol/L (3.5-5.1); Sodium Level 137 mmol/L (136-145)
[2024-09-12] MEDS: 0.9% Normal Saline (1000mL) 1,000 ML 75 ML IV (08:20)
[2024-09-12 08:46] VITALS: BP 140/67; PULSE 88; RESP 16; TEMP 36.6; O2SAT 95
[2024-09-12] MEDS: Aspirin 81 MG TAB.CHEW PO (09:03)
[2024-09-12] MEDS: Doxycycline 100 MG CAPSULE PO ×2 (09:03→20:16)
[2024-09-12] MEDS: predniSONE 10 MG Tablet 20 MG PO (09:03)
[2024-09-12] MEDS: Smz/Tmp Ds Tablet 1 TABLET PO (09:03)
[2024-09-12] MEDS: Triamcinolone 0.1% Ointment 15 gm tube 1 APPLIC TOPICAL ×2 (09:04→20:14)
[2024-09-12] MEDS: Menthol/Lanolin/Calamine/Znox 113 GM Tube 1 APPLIC TOPICAL ×2 (09:04→20:14)
[2024-09-12] MEDS: Clobetasol Propionate 0.05% Ointment 1 APPLIC TOPICAL ×2 (09:05→20:14)
[2024-09-12] MEDS: Glucerna Shake 120 ML LIQUID PO ×2 (09:14→11:29)
[2024-09-12] MEDS: 0.9% Saline Lock 10 ML Syringe IV (09:14)
[2024-09-12 12:26] LABS: Bedside Glucose 162 mg/dL (74-106)
--- NOTE | 2024-09-12 13:36 | ST.MBS ---
Modified Barium Swallow Patient Information Study Date: 09/12/24 Study Time: 13:00 Direct Billable Minutes: 120 Total Minutes procedure & reportin Diagnosis: Debility R53.81 Referring Physician: Jesus Jordan Reason for Referral: Pt presented to [facility] ED 09/10/24 w/ increasing weakness and poor p.o. intake over the past few weeks. Following work up, pt was admitted to hospital due to her generalized weakness and suspected FUENTES. Of note, she has had some nausea but this has been attributed to not eating much food and still taking her medications. Of note, she has history of melanoma that was removed and was placed on immunotherapy over the summer she developed bullous pemphigoid due to treatment so it was stopped but still gets flares of bullous pemphigoid. 2 weeks ago she had another flare and has been on steroids since that time on a tapering course. Pt was referred for ST consult due to coughing on and vomiting water and whole pill 09/12/24. BSE was completed and recommended full liquid diet w/ POLITICAL CONSULTANT recommendation for MBSS. Pt w/ gagging and coughing w/ applesauce at bedside, but was able to tolerate thin and pudding w/ minimal coughing and good oral clearance. Medical History: PMH: history of melanoma status post removal, bullous pemphigoid after immunotherapy with recent flare, hypertension, depression, tremor, microalbuminuria due to type 2 diabetes mellitus, hypercholesterolemia, hx of HTN, hx of dyslipidemia. See EMR for full PMH. Current Diet Ordered: Full liquids Dentition: Upper Dentures and Partials (lower) Mental Status: Impaired Respiratory Status: Oxygenating on Room Air Penetration-Aspiration Scale Penetration-Aspiration Scale: OBJECTIVE ASSESSMENT OF SWALLOW FUNCTION (QUANTITATIVE ? PER TRIAL): PENETRATION / ASPIRATION SCALE (BOWMAN): 1 = does not enter airway 2 = enters airway/above vocal folds/ejected 3 = enters airway/above vocal folds/not ejected 4 = enters airway/contacts vocal folds/ejected 5 = enters airway/contacts vocal folds/not ejected 6 = enters airway/below vocal folds/ejected 7 = enters airway/below vocal folds/not ejected despite effort 8 = enters airway/below vocal folds/no effort VIDEOFLOROSCOPIC SCALE SCORE (BOWMAN): Grade I = aspiration of material that has penetrated into the laryngeal vestibule, intact cough reflex Grade II = aspiration < 10 % of the bolus, intact cough reflex Grade III = aspiration of < 10 % of the bolus, reduced cough reflex or aspiration of > 10 % of the bolus, intact cough reflex Grade IV = aspiration of > 10 % of the bolus, reduced cough reflex Penetration-Aspiration Scale Score Thin Liquid via teaspoon: Result: 1= does not enter airway Thin Liquid via teaspoon Trial 2: Result: 1= does not enter airway Thin Liquid via sequential sips: cup: Result: 2= enter airway/above vocal folds/ejected Comment: Esophageal screen - Complete clearance. [place] Thick Liquid via sequential sips: cup: Result: 1= does not enter airway Comment: Coughing after trial, but the laryngeal vestibule and trachea appeared clear of contrast. Pudding via teaspoon: Result: 1= does not enter airway Comment: Esophageal screen - Complete clearance. 1/4 Cookie: Result: 1= does not enter airway Comment: Esophageal screen - Retention of cookie throughout the upper, middle, and lower esophagus w/ retrograde flow remaining below the UES. Little to no emptying of cookie through the LES after >20 seconds after the swallow. Thin Liquid via single sip: straw: Result: 1= does not enter airway Comment: Esophageal screen - Complete clearance. Barium Tablet w/ Water: Result: 1= does not enter airway Comment: Esophageal screen - Complete clearance. Oral Phase Labial Seal: No Labial Escape Tongue Control During Bolus Hold: Posterior escape of greater than half of bolus Bolus Preparation/Mastication: Slow prolonged chewing/mashing with complete recollection (Disorganized and slowed, but complete mastication) Bolus Transport/Lingual Motion: Repetitive/disorganized tongue motion Oral Residue: Residue collection on oral structures Pharyngeal Phase Initiation of Pharyngeal Swallow: Bolus head in pyriforms Soft Palate Elevation: Trace column of contrast/air between soft palate and pharyngeal wall Laryngeal Elevation: Comp. Superior move thyroid cart w/comp. apprx arytenoid cart-epig pet Anterior Hyoid Excursion: Partial anterior movement Epiglottic Movement: Partial inversion Laryngeal Vestibule Closure at Height of Swallow: Complete; no air/contrast in laryngeal vestibule Pharyngeal Stripping Wave: Present - diminished Pharyngoesophageal Segment Opening: Parital distension and partial duration; parital obstruction of flow Tongue Base Retraction: Narrow column of contrast between tongue base & post. pharyngeal wall Pharyngeal Residue: Collection of residue within or on pharyngeal structures Esophageal Phase Esophageal Clearance: Esophageal retention w/ retrograde flow below pharyngoesophageal seg. Diagnosis/Impression Diagnosis: Mild-moderate oropharyngeal dysphagia R13.12; Esophageal dysphagia R13.14 Impression: The oral phase is primarily marked by... -Decreased bolus control w/ loss of >1/2 of thin liquid bolus to the pyriforms prior to swallow onset. -Hyper-reflexive gag, most notable w/ pudding thick barium trial. Pt gagged several times prior to swallowing the bolus w/ pudding spilling to the pharynx as the patient gagged. POLITICAL CONSULTANT discussed concern for pt having both a choking and aspiration risk w/ premature posterior loss of bolus w/ discoordinated swallowing due to the gagging. -Slowed, but complete mastication. The pharyngeal phase is primarily marked by... -Delayed swallow onset. -Decreased TB retraction, pharyngeal stripping wave, and UES opening/duration w/ mild pharyngeal residues after the swallow. -Decreased anterior hyoid excursion and inconsistent epiglottic inversion (at times, partial inversion); however, pt maintained good airway closure during the swallow w/ no aspiration observed. Esophageal phase is primarily marked by... -Retention of cookie throughout the upper, middle, and lower esophagus w/ retrograde flow remaining below the UES. It fully cleared during thin liquid trial immediately following. -Regurgitation/vomiting of water and whole pill at bedside per RN 09/11/2024. Recommendations Diet: Mechanical Soft Textures (Soft and bite size - IDDSI Level 6) and Thin Liquids Comment: Meds crushed in pudding. STOP food/drink if sensing reflux or experiencing regurgitation despite use of strategies and resume meal at a later time. Compensatory Strategies: Small Bites, Small Sips, Slow Rate, Alternate bites/solids and sips/liquids (1:1 ratio), Sitting upright and Remain sitting upright for 30 minutes after PO intake Supervision: 1:1 Close Supervision (Supervision at meals, is ok to supervise, pt is ok for liquids at bedside between meals) Recommend Repeat Modified Barium Swallow: TBD Need for Skilled Speech Therapy Services: Yes Comment: -Train the patient in use of strategies to decrease risk for aspiration and reflux aspiration. -Ongoing assessment of diet tolerance of recommended textures. -Train the patient in oropharyngeal exercise program to improve bolus control, pharyngeal contraction, TB retraction, and swallow onset (lingual resistance, effortful, Malgorzata, Svitlana). Recommended Referrals: GI Consult Education Completed: 1. Described result of evaluation., 2. Pt understands evaluation & agrees with goals and treatment plan. and 7. Pt requires further education on strategies & risks. Status Active ST Patient: Active Contact Information [facility] Speech Therapy:: Aby Conde M.A. CCC-POLITICAL CONSULTANT? Speech-Language Pathologist?? [facility] [address] [place] [address]? [email or web address]?? [phone]
[2024-09-12 13:55] VITALS: BP 154/77; PULSE 95; RESP 16; TEMP 36.6; O2SAT 94
[2024-09-12 16:46] LABS: Bedside Glucose 240 mg/dL (74-106)
--- NOTE | 2024-09-12 18:08 | PCM.PN.HOSP ---
Reason for Visit Reason for Visit: Diagnoses Dehydration (09/10/24) Acute kidney failure, unspecified (09/10/24) Subjective Subjective Patient was seen and examined today, speech therapy has requested gastroenterology see the patient according to nursing due to poor performance on her modified barium swallow. Patient was aware of person place and year, she did not know what month it was. Objective Data Objective Data Vital Signs: Vital Signs Temp Pulse Resp BP Pulse Ox O2 Del Method 97.8 F 95 16 154/77 H 94 Room Air 09/12/24 13:55 09/12/24 13:55 09/12/24 13:55 09/12/24 13:55 09/12/24 13:55 09/12/24 13:55 Oxygen Delivery Method Room Air Weight: 87.7 kg Body Mass Index (BMI) 26.9 Intake & Output: Intake and Output for Last 24 Hours 09/10/24 09/11/24 09/12/24 23:59 23:59 23:59 Intake Total 1000 / 1250 1480 / 1780 1843.75 / 1843.75 Output Total 30 / 180 500 / 750 400 / 400 Balance 970 / 1070 980 / 1030 1443.75 / 1443.75 Lab / Micro Data 09/11/24 05:55 09/12/24 05:27 Labs: Laboratory Results - last 24 hr 09/11/24 22:06: POC Glucose 100 09/12/24 05:27: Sodium 137, Potassium 4.4, Chloride 111 H, Carbon Dioxide 19.0 L, Anion Gap 7, BUN 63 H, Creatinine 1.63 H, Estim Creat Clear Calc 37.64, Est GFR (MDRD) Af Amer 40 L, Est GFR (MDRD) Non-Af 33 L, BUN/Creatinine Ratio 38.7 H, Glucose 122 H, Calcium 9.1 09/12/24 06:38: POC Glucose 108 H 09/12/24 11:22: POC Glucose 162 H 09/12/24 16:18: POC Glucose 240 H Micro: Microbiology 09/11/24 00:35 Stool Enteric Bacteriology - Final 09/11/24 00:35 Stool Clostridioides difficile (PCR) - Final 09/10/24 21:15 Mucosa - Nose SARS-CoV-2, Influenza & RSV (PCR) - Final Rhythm Strip Rhythm Strip: Sinus Rhythm Rate: 70 Ectopy: None Physical Exam Narrative alert and no apparent distress General Appearance: cooperative, well kempt and well developed Orientation / Consciousness: awake, oriented to person and oriented to place HEENT normocephalic, head/scalp atraumatic and moist oral mucous membranes Eyes PERRL, EOMs intact bilaterally and conjunctivae normal Neck supple, no JVD, thyroid normal and no carotid bruits General: trachea midline Resp normal respiratory effort, no retractions, no use of accessory muscles and clear to auscultation bilaterally Auscultation: Negative for rales, rhonchi or wheezes Cardio regular rate, regular rhythm, S1 normal heart sound, S2 normal heart sound, no murmurs, no rub and no gallops GI normal to inspection, nondistended, normoactive bowel sounds, soft to palpation, non-tender and non-distended Extremity no clubbing, cyanosis or edema Skin no rashes or lesions noted General Skin Exam: no breakdown Neuro CN's II-XII intact bilaterally, moves all extremities, no focal motor deficits and no sensory deficits noted Neuro Narrative: Patient is a poor informant, she exhibits some mild confusion/cognitive impairment at the time my examination Sensorium / Orientation: awake, alert, oriented to person and oriented to place Speech: speech normal Psych Psych Narrative: Patient exhibits some mild confusion Assessment & Plan Assessment/Plan (1) FUENTES (acute kidney injury): (2) Acute dehydration: PLAN: Plan 1. Elevated creatinine due to dehydration-creatinine today is improved #2 acute debility-PT and OT are seeing patient, she will need short-term placement in assisted facility #3 cognitive impairment-etiology unclear at this point, supportive care will be given to the patient #4 type 2 diabetes-patient's blood sugars will be monitored, sliding scale insulin will be administered as needed #5 chronic depression-patient is on Zoloft #6 hyperlipidemia-patient is on a statin #7 bullous pemphigoid-patient will remain on her outpatient medications #8 past history of melanoma-patient is due to get outpatient imaging studies performed according to her #7 oropharyngeal dysphagia-GI will see the patient in consultation Total clinical time spent by myself addressing the patient's medical issues, reviewing all of her data, and collaborating with patient's care team: 35 minutes Charges/Coding Visit Charges Inpatient E&M: 69667 Subs Hosp L2
--- NOTE | 2024-09-12 18:27 | EX.PCM.CON.G ---
HPI Consult Data Date of Consult: 09/12/24 HPI Narrative Reason for Consultation: Dysphagia HPI Narrative: CLAUDIA GRADY, is a 74 F who presents 74 F with history of melanoma status post removal, bullous pemphigoid after immunotherapy with recent flare, hypertension, depression who presented [facility] ED 09/10/2024 with increasing weakness and poor p.o. intake over the past few weeks. In the ED patient had white blood cell count of 25 but was found to be on steroids, sodium of 132 with potassium of 5.2 and a BUN of 70 with creatinine of 2.13 however no lab work in the past several years for recent baseline. Additionally lactic acid of 2.5. Patient overall weak and feeling unwell, initially blood pressure low but came up with IV fluids.The patient has no fever, no other focal suggestions of infection so cultures obtained but no antibiotics were started. Patient evaluated with at bedside who provided much of the history. Patient has been generally weak and had very poor p.o. intake over the past several weeks and over the past 4 days has further declined to the point where she hardly gets up more than just to go to the bathroom but has had decreased urination due to her poor p.o. intake. Gets some occasional nausea but this has been attributed to not eating much food and still taking her medications. Has had some intermittent loose stool, no blood in the stool, no abdominal pain. Of note she has history of melanoma that was removed and was placed on immunotherapy over the summer she developed bullous pemphigoid due to this so it was stopped but still gets flares of bullous pemphigoid. 2 weeks ago she had another flare and has been on steroids since that time on a tapering course, is towards the end but is still on steroids. Has been getting some dizziness occasionally, some possible shortness of breath and possible cough but patient and report this is secondary and is also been over the past couple of weeks but the weakness and poor p.o. preceded anything else. [facility] Medical History Tremor Obesity (BMI 35.0-39.9 without comorbidity) Primary osteoarthritis of both knees Postmenopausal disorder Microalbuminuria due to type 2 diabetes mellitus Hypercholesterolemia History of nephrolithiasis History of hypertension history of dyslipidemia Hypertension Diabetes Home Medications ?Medication ?Instructions ?Recorded ?Last Taken ?Type atorvastatin 10 mg tablet 10 mg PO QHS 03/25/18 Unknown History blood sugar diagnostic #10 ea 11/29/19 Unknown History lancets 33 gauge #100 ea 11/29/19 Unknown History lisinopril 20 mg tablet 20 mg PO DAILY #30 tabs 01/03/20 Unknown Rx aspirin 81 mg capsule 81 mg PO DAILY 09/10/24 Unknown History calcium 1,000 mg (as 1 tab PO DAILY osteoporosis 09/10/24 Unknown History carbonate)-vitamin D3 20 mcg (800 unit) tablet cholecalciferol (vitamin D3) 50 50 mcg PO DAILY 09/10/24 Unknown History mcg (2,000 unit) tablet (Vitamin D3) clobetasol 0.05 % topical ointment topical BID 09/10/24 Unknown History doxycycline monohydrate 100 mg 100 mg PO BID 09/10/24 Unknown History capsule metoprolol succinate 50 mg 50 mg PO DAILY 09/10/24 Unknown History tablet,extended release 24 hr ondansetron 8 mg disintegrating 8 mg PO Q8H PRN PRN nausea/vomiting 09/10/24 Unknown History tablet prednisone 10 mg tablet 10 mg PO DAILY RASH 09/10/24 Unknown History sertraline 50 mg tablet 50 mg PO QHS depressive disorder 09/10/24 Unknown History sulfamethoxazole 800 1 tab PO .COMPLEX 09/10/24 Unknown History mg-trimethoprim 160 mg tablet triamcinolone acetonide 0.1 % topical BID 09/10/24 Unknown History topical ointment Allergy/AdvReac Type Severity Reaction Status Date / Time adhesive tape Allergy Rash Verified 09/10/24 14:18 aspirin AdvReac Upset Verified 09/10/24 14:18 Stomach Family History (Updated 12/06/19 @ 08:44 by June Holt) Father , @ 75 Lung cancer Mother Colon cancer Heart disease CVA (cerebral vascular accident) Sudden cardiac Sister , at 60 Cancer Sister , at 45 Cancer of kidney Surgical History History of left knee replacement History of vaginal hysterectomy History of tonsillectomy History of colonoscopy h/o plantar fascitis surgery Social History Smoking Status: Never smoker alcohol intake: current details: Social substance use type: does not use what type of physical activity do you participate in: walking ROS ROS Narrative General: Denies fever/chills HENT: denies stuffy nose, denies sore throat EYES: Denies changes in vision Resp: Some intermittent cough and intermittent shortness of breath with exertion Cardiac: Denies chest pain GI: Denies abdominal pain, some intermittent nausea and intermittent loose stools : No burning on urination, perhaps some decreased urination due to her poor p.o. intake Extremity: Denies any new swelling MSK: Generalized weakness Neuro: Denies any numbness/tingling Heme: Denies any bleeding or bruising Skin: Bullous pemphigoid especially on hands in process of healing Psychiatric: No complaints voiced Review of Systems ROS Unobtainable: other Constitutional Constitutional: Denies fatigue, fever(s), poor appetite, weight gain or weight loss ENT HEENT: Denies mouth lesions Cardiovascular Cardiovascular: Denies abdominal bloating, abdominal edema or abdominal pain Respiratory/Chest Respiratory/Chest: Denies change in mental status, change in phlegm color, chest congestion or chest tightness Gastrointestinal Gastrointestinal: Denies belching, bloating, change in bowel habits, change in stool character, chewing difficulty, coffee ground emesis, constipation, cramping, diarrhea, dyspepsia, dysphagia, early satiety, excessive flatus, fecal incontinence, heartburn, hematemesis, hematochezia, hemorrhoids, loose stools, melena, nausea, odynophagia, rectal bleeding, tenesmus, vomiting or weight changes Genitourinary Genitourinary: Denies abdominal discomfort, burning urination or itching Musculoskeletal Musculoskeletal: Reports as per HPI; Denies muscle weakness or myalgias Integumentary Integumentary: Denies jaundice Neurologic Neurologic: Denies lack of coordination or weakness Psychiatric Psychiatric: Denies confusion, depression, memory loss, mood swings, paranoia or suicidal ideation Endocrine Endocrinology: Denies systems reviewed and no addt'l complaints, except as documented Hematologic/Lymphatic Hematologic/Lymphatic: Denies anemia, easy bleeding, easy bruising or lymphadenopathy Allergic/Immunologic Allergic/Immunologic: Denies systems reviewed and no addt'l complaints, except as documented Lab / Micro Data 09/11/24 05:55 09/12/24 05:27 Labs: Laboratory Results - last 24 hr 09/11/24 22:06: POC Glucose 100 09/12/24 05:27: Sodium 137, Potassium 4.4, Chloride 111 H, Carbon Dioxide 19.0 L, Anion Gap 7, BUN 63 H, Creatinine 1.63 H, Estim Creat Clear Calc 37.64, Est GFR (MDRD) Af Amer 40 L, Est GFR (MDRD) Non-Af 33 L, BUN/Creatinine Ratio 38.7 H, Glucose 122 H, Calcium 9.1 09/12/24 06:38: POC Glucose 108 H 09/12/24 11:22: POC Glucose 162 H 09/12/24 16:18: POC Glucose 240 H Rhythm Strip Rhythm Strip: Sinus Rhythm Rate: 70 Ectopy: None Assessment & Plan Assessment/Plan (1) Dysphagia: PLAN: 74-year-old with multiple medical problems, in the hospital with failure to thrive, acute kidney injury with hyperkalemia. She underwent modified barium swallow was discovered to have esophageal dysphagia. Recommend upper endoscopy to evaluate upper GI tract. She was explained alternatives, risk and benefits, send bleeding, infection, sepsis, perforation, need for intervention . She will have an ASA of 3. Charges/Coding Visit Charges Inpatient E&M: 90115 Init Hosp L3
[2024-09-12 18:31] VITALS: BP 142/63; PULSE 91; RESP 16; TEMP 36.7; O2SAT 98
[2024-09-12] MEDS: Sertraline 50 MG Tablet PO (20:16)
[2024-09-12] MEDS: Atorvastatin Calcium 10 MG Tablet PO (20:16)
[2024-09-12 20:32] VITALS: BP 143/72; PULSE 99; RESP 16; TEMP 36.2; O2SAT 100
[2024-09-12 20:35] LABS: Bedside Glucose 165 mg/dL (74-106)
[2024-09-13 00:25] VITALS: BMI 26.9
[2024-09-13] MEDS: 0.9% Saline Lock 10 ML Syringe IV ×3 (00:39→06:18)
[2024-09-13] MEDS: Ondansetron 4 MG/2 ML Vial IV (00:39)
[2024-09-13 03:00] VITALS: BP 166/84; PULSE 99; RESP 18; TEMP 36.3; O2SAT 98
[2024-09-13 04:22] VITALS: BP 166/84; PULSE 99
[2024-09-13] MEDS: Heparin Injection (Vial) 5,000 UNIT/ML VIAL 5000 UNIT SC ×2 (04:22→23:43)
[2024-09-13] MEDS: hydrALAZINE 20 MG/ML Vial 10 MG IV (04:22)
[2024-09-13] MEDS: LORazepam 2 MG/ML Syringe 0.5 MG IV (06:17)
[2024-09-13 06:37] LABS: Bedside Glucose 139 mg/dL (74-106)
[2024-09-13 10:07] VITALS: BP 121/59; PULSE 100; RESP 16; TEMP 36.6; O2SAT 97
[2024-09-13] MEDS: Menthol/Lanolin/Calamine/Znox 113 GM Tube 1 APPLIC TOPICAL ×2 (10:11→23:40)
[2024-09-13] MEDS: Triamcinolone 0.1% Ointment 15 gm tube 1 APPLIC TOPICAL ×2 (10:11→23:42)
[2024-09-13] MEDS: Clobetasol Propionate 0.05% Ointment 1 APPLIC TOPICAL ×2 (10:11→23:42)
--- NOTE | 2024-09-13 11:37 | CASEMGMT ---
Social Work- SW met with pt and spouse, Antione. Antione reports that alternate SNF choice would be [facility]. DCA notified. SERGO Austin
[2024-09-13 11:49] LABS: Bedside Glucose 151 mg/dL (74-106)
--- NOTE | 2024-09-13 11:53 | CASEMGMT ---
Addendum entered by Cecilia Ward 09/13/24 14:46: [facility] asked to cancel referral. Cecilia Ward DC Planning Asst. Original Note: Discharge Planning Referral sent via [facility] to [facility]. Cecilia Ward DC Planning Asst.
[2024-09-13 14:26] VITALS: BP 114/63; PULSE 98; RESP 16; TEMP 36.3; O2SAT 98
[2024-09-13] MEDS: predniSONE 10 MG Tablet 20 MG PO (16:32)
[2024-09-13] MEDS: Doxycycline 100 MG CAPSULE PO ×2 (16:32→23:41)
[2024-09-13] MEDS: Aspirin 81 MG TAB.CHEW PO (16:33)
[2024-09-13] MEDS: Glucerna Shake 120 ML LIQUID PO (16:42)
[2024-09-13 16:54] LABS: Bedside Glucose 138 mg/dL (74-106)
--- NOTE | 2024-09-13 18:15 | PCM.PN.HOSP ---
Reason for Visit Reason for Visit: Diagnoses Dehydration (09/10/24) Acute kidney failure, unspecified (09/10/24) Dysphagia, unspecified (09/10/24) Subjective Subjective Patient was seen and examined today, I talked her was in the room at the time of my examination. Patient was lethargic and did not carry on any conversation with me. GI is participating in her care, she is supposed to have an upper endoscopy performed. Objective Data Objective Data Vital Signs: Vital Signs Temp Pulse Resp BP Pulse Ox O2 Del Method 97.4 F L 98 16 114/63 98 Room Air 09/13/24 14:26 09/13/24 14:26 09/13/24 14:26 09/13/24 14:26 09/13/24 14:26 09/13/24 15:33 Oxygen Delivery Method Room Air Weight: 87.7 kg Body Mass Index (BMI) 26.9 Intake & Output: Intake and Output for Last 24 Hours 09/11/24 09/12/24 09/13/24 23:59 23:59 23:59 Intake Total 1480 / 1780 1843.75 / 2650.00 806.25 / 806.25 Output Total 500 / 750 900 / 1300 820 / 820 Balance 980 / 1030 943.75 / 1350.00 -13.75 / -13.75 Lab / Micro Data 09/11/24 05:55 09/12/24 05:27 Labs: Laboratory Results - last 24 hr 09/12/24 20:11: POC Glucose 165 H 09/13/24 06:17: POC Glucose 139 H 09/13/24 11:28: POC Glucose 151 H 09/13/24 16:29: POC Glucose 138 H Micro: Microbiology 09/10/24 17:44 Blood Culture (Wb) - Anticubital Left Blood Culture - Preliminary No growth in 48 hours. 09/11/24 00:35 Stool Enteric Bacteriology - Final 09/11/24 00:35 Stool Clostridioides difficile (PCR) - Final 09/10/24 21:15 Mucosa - Nose SARS-CoV-2, Influenza & RSV (PCR) - Final Rhythm Strip Rhythm Strip: Sinus Rhythm Rate: 70 Ectopy: None Physical Exam Narrative alert and no apparent distress General Appearance: cooperative, well kempt and well developed Orientation / Consciousness: Patient is lethargic and does not carry on a conversation with me HEENT normocephalic, head/scalp atraumatic and moist oral mucous membranes Eyes PERRL, EOMs intact bilaterally and conjunctivae normal Neck supple, no JVD, thyroid normal and no carotid bruits General: trachea midline Resp normal respiratory effort, no retractions, no use of accessory muscles and clear to auscultation bilaterally Auscultation: Negative for rales, rhonchi or wheezes Cardio regular rate, regular rhythm, S1 normal heart sound, S2 normal heart sound, no murmurs, no rub and no gallops GI normal to inspection, nondistended, normoactive bowel sounds, soft to palpation, non-tender and non-distended Extremity no clubbing, cyanosis or edema Skin no rashes or lesions noted General Skin Exam: no breakdown Neuro CN's II-XII intact bilaterally Neuro Narrative: Patient is lethargic Sensorium / Orientation: Patient is lethargic and sleepy Psych Psych Narrative: Patient is lethargic Assessment & Plan Assessment/Plan (1) Dysphagia: (2) FUETNES (acute kidney injury): (3) Acute dehydration: PLAN: Plan 1. Elevated creatinine due to dehydration-BMP will be repeated tomorrow #2 acute debility-PT and OT are seeing patient, she will need short-term placement in nursing home facility #3 cognitive impairment-etiology unclear at this point, supportive care will be given to the patient, I talked at length with her , they are working up for cognitive decline as an outpatient at neurology. #4 type 2 diabetes-patient's blood sugars will be monitored, sliding scale insulin will be administered as needed #5 chronic depression-patient is on Zoloft #6 hyperlipidemia-patient is on a statin #7 bullous pemphigoid-patient will remain on her outpatient medications #8 past history of melanoma-patient is due to get outpatient imaging studies performed according to her #7 oropharyngeal dysphagia-GI is planning on doing an upper GI on the patient, speech is participating in her care Total clinical time spent by myself addressing the patient's medical issues, reviewing all of her data, and collaborating with patient's care team: 35 minutes Charges/Coding Visit Charges Inpatient E&M: 47860 Subs Hosp L2
[2024-09-13] MEDS: Sertraline 50 MG Tablet PO (23:41)
[2024-09-13] MEDS: Nystatin Powder 15gm Bottle 1 APPLIC TOPICAL (23:41)
[2024-09-13] MEDS: Atorvastatin Calcium 10 MG Tablet PO (23:44)
[2024-09-14] VITALS (12 sets, daily range): BP systolic 100–142; BP diastolic 56–78; PULSE 79–100; RESP 14–18; TEMP 36–36.6; O2SAT 94–99; BMI 26.9; BMI 27.2
[2024-09-14] MEDS: Insulin Lispro 100 UNIT/ML INSULN.PEN SC (00:13)
[2024-09-14 00:28] LABS: Bedside Glucose 160 mg/dL (74-106)
[2024-09-14 06:39] LABS: Bedside Glucose 129 mg/dL (74-106)
[2024-09-14 06:43] LABS: Partial Thromboplast Time 28.1 Seconds (24.1-36.2)
[2024-09-14 06:49] LABS: Anion Gap 5 (5-15); BUN 59 mg/dL (7-18); BUN/Creat Ratio 38.1 RATIO (10-20); Calcium,Total 9.3 mg/dL (8.5-10.1); Chloride 112 mmol/L (98-107); Creatinine, Serum 1.55 mg/dL (0.55-1.02); EST Glomerular Filtration Rate 35 mL/min (>60); Est Glom Filt Rate - Afr Amer 42 mL/min (>60); Estimated Creatinine Clearance 39.58 ml/min; Glucose 138 mg/dL (74-106); Potassium 4.6 mmol/L (3.5-5.1); Sodium Level 140 mmol/L (136-145)
--- NOTE | 2024-09-14 11:47 | PRE.ANES_ITS ---
ASA Classification* ASA Classification ASA Classification: 3 Assessment & Plan Anesthesia* Anesthesia Assessment Anesthesia Assessment: Discussed sedation and/or anesthesia options, risks, benefits, and alternatives with patient/parents/legal guardian/POA. Questions invited. The patient/parents/legal guardian/POA seems to understand and agrees to proceed with anesthesia plan. Reviewed the physical assessment, medical history, allergy history and patient home medications list prior to surgery/procedure/anesthetic and documented any changes. Performed airway and anesthesia risk assessments. Anesthesia Type Anesthesia Type: MAC Anesthesia Focused Assessment* Temperature: 97.5 F Pulse Rate: 91 Blood Pressure: 136/75 Respiratory Rate: 18 Pulse Ox: 97 Airway Assessment Mouth opens: >3 cm Mallampati Score: II Focused Labs Anesthesia Preop lab: CBC WBC 21.9 K/mm3 (4.4-11.0) H 09/11/24 05:55 RBC 3.84 M/mm3 (4.2-5.4) L 09/11/24 05:55 Hgb 11.1 g/dL (12.0-15.0) L 09/11/24 05:55 Hct 34.6 % (37-47) L 09/11/24 05:55 Plt Count 118 K/mm3 (150-450) L 09/11/24 05:55 CHEMISTRY Potassium 4.6 mmol/L (3.5-5.1) 09/14/24 06:18 Sodium 140 mmol/L (136-145) 09/14/24 06:18 Magnesium 2.1 mg/dL (1.6-2.6) 09/11/24 05:55 Phosphorus 2.3 mg/dL (2.5-4.9) L 09/11/24 05:55 BUN 59 mg/dL (7-18) H 09/14/24 06:18 Creatinine 1.55 mg/dL (0.55-1.02) H 09/14/24 06:18 Glucose 138 mg/dL (74-106) H 09/14/24 06:18 POC Glucose 129 mg/dL (74-106) H 09/14/24 06:21 TSH 1.330 uIU/mL (0.358-3.740) 09/11/24 05:55 COAG Pre-Assessment Diagnosis/Proposed Procedure Planned Operative Procedure(s): EGD Anesthesia History 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 When Was Last Pacemaker Check QUESTION #4 FULL TEXT: You/Your Family Experience fever (hyperthermia) with Anesthesia Last Oral Intake Last Oral intake: Last Oral Intake NPO since 00:00 09/14/24 09:12 Meds taken in AM with sips of No 09/14/24 09:12 water? 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 Has anyone observed you stop No 09/10/24 19:37 breathing during sleep? STOP Results Positive 09/10/24 19:37 QUESTION #5 FULL TEXT : Do you snore loudly (louder than talking or can be heard through closed doors)? 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 Specify any problems Hx of Preganancy in last 3 No 09/10/24 19:37 Months Nurse Filling Out Transfusion AREAD 09/10/24 19:37 & Questions: Date: 09/10/24 09/10/24 19:37 Time: 20:09 09/10/24 19:37 Patient unable to answer at this time (ie. 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 INHALATION Q2H PRN PRN SOB &/OR WHEEZING Aspirin 81 mg 09/11/24 08:00 09/14/24 08:24 Aspirin 81 Mg Tab.Chew PO Not Given DAILYCM MERON Atorvastatin Calcium 10 mg 09/10/24 22:00 09/13/24 23:44 Atorvastatin Calcium 10 Mg Tablet PO 10 mg QHS MERON Administration Calamine/Phenol 1 applic 09/11/24 10:00 09/13/24 23:40 Menthol/Lanolin/Calamine/Znox 113 Gm Tube TOPICAL 1 applic BID MERON Administration Protocol Clobetasol Propionate 1 applic 09/11/24 22:00 09/13/24 23:42 Clobetasol Propionate 0.05% Ointment TOPICAL 1 applic BID MERON Administration Protocol Doxycycline Monohydrate 100 mg 09/10/24 22:00 09/13/24 23:41 Doxycycline 100 Mg Capsule PO 100 mg BID MERON Administration Glucagon 1 mg 09/10/24 19:20 Glucagon 1 Mg/Ml Syringe IM X1 PRN Hypoglycemia Protocol Heparin Sodium (Porcine) 5,000 unit 09/10/24 22:00 09/14/24 07:04 Heparin Injection (Vial) 5,000 Unit/Ml Vial SC Not Given Q8 MERON Dextrose 250 mls @ 0 mls/hr 09/10/24 19:20 Dextrose 10%-Water IV .Q0M PRN HYPOGLYCEMIA Protocol As Directed Sodium Chloride 500 mls @ 15 mls/hr 09/10/24 20:15 IV .[id number] PRN Saline Flush Sodium Chloride 500 mls @ 15 mls/hr 09/10/24 20:15 IV .[id number] PRN Additional IVPB Infusion Insulin Human Lispro 0 unit 09/10/24 22:00 09/14/24 07:03 Insulin Lispro 100 Unit/Ml Insuln.Pen SC Not Given ACHS [facility] Protocol Melatonin 3 mg 09/10/24 19:20 Melatonin 3 Mg Tablet PO QHS PRN PRN INSOMNIA Nutritional Formula (Lactose Free) 120 ml 09/11/24 17:00 09/14/24 08:24 Glucerna Shake 120 Ml Liquid PO Not Given TIDCM [facility] Nystatin 1 applic 09/13/24 22:00 09/13/24 23:41 Nystatin Powder 15gm Bottle TOPICAL 1 applic BID [facility] Administration Protocol Ondansetron HCl 4 mg 09/10/24 19:20 09/13/24 00:39 Ondansetron 4 Mg/2 Ml Vial IV 4 mg Q8H PRN PRN Administration NAUSEA/VOMITING Prednisone 20 mg 09/11/24 08:00 09/14/24 08:25 Prednisone 10 Mg Tablet PO 09/17/24 08:01 Not Given DAILYCM [facility] Promethazine HCl 25 mg 09/13/24 01:36 Promethazine 25 Mg/Ml Syringe IM Q6H PRN PRN BREAKTHROUGH NAUSEA Senna/Docusate Sodium 2 tablet 09/10/24 19:20 Senna/Docusate Sodium 1 Tablet PO BID PRN PRN Constipation Sertraline HCl 50 mg 09/10/24 22:00 09/13/24 23:41 Sertraline 50 Mg Tablet PO 50 mg QHS [facility] Administration Sodium Chloride 10 - 40 ml 09/10/24 20:15 09/13/24 06:18 0.9% Saline Lock 10 Ml Syringe IV 10 ml UD PRN Administration SALINE FLUSH Triamcinolone Acetonide 1 applic 09/11/24 22:00 09/13/24 23:42 Triamcinolone 0.1% Ointment 15 Gm Tube TOPICAL 1 applic BID [facility] Administration Protocol Trimethoprim/Sulfamethoxazole 1 tablet 09/12/24 08:00 09/14/24 08:24 Smz/Tmp Ds Tablet PO Not Given [id number] [facility] Medical History Tremor Obesity (BMI 35.0-39.9 without comorbidity) Primary osteoarthritis of both knees Postmenopausal disorder Microalbuminuria due to type 2 diabetes mellitus Hypercholesterolemia History of nephrolithiasis History of hypertension history of dyslipidemia Hypertension Diabetes Home Medications ?Medication ?Instructions ?Recorded ?Last Taken ?Type atorvastatin 10 mg tablet 10 mg PO QHS 03/25/18 Unknown History blood sugar diagnostic #10 ea 11/29/19 Unknown History lancets 33 gauge #100 ea 11/29/19 Unknown History lisinopril 20 mg tablet 20 mg PO DAILY #30 tabs 01/03/20 Unknown Rx aspirin 81 mg capsule 81 mg PO DAILY 09/10/24 Unknown History calcium 1,000 mg (as 1 tab PO DAILY osteoporosis 09/10/24 Unknown History carbonate)-vitamin D3 20 mcg (800 unit) tablet cholecalciferol (vitamin D3) 50 50 mcg PO DAILY 09/10/24 Unknown History mcg (2,000 unit) tablet (Vitamin D3) clobetasol 0.05 % topical ointment topical BID 09/10/24 Unknown History doxycycline monohydrate 100 mg 100 mg PO BID 09/10/24 Unknown History capsule metoprolol succinate 50 mg 50 mg PO DAILY 09/10/24 Unknown History tablet,extended release 24 hr ondansetron 8 mg disintegrating 8 mg PO Q8H PRN PRN nausea/vomiting 09/10/24 Unknown History tablet prednisone 10 mg tablet 10 mg PO DAILY RASH 09/10/24 Unknown History sertraline 50 mg tablet 50 mg PO QHS depressive disorder 09/10/24 Unknown History sulfamethoxazole 800 1 tab PO .COMPLEX 09/10/24 Unknown History mg-trimethoprim 160 mg tablet triamcinolone acetonide 0.1 % topical BID 09/10/24 Unknown History topical ointment Allergy/AdvReac Type Severity Reaction Status Date / Time adhesive tape Allergy Rash Verified 09/10/24 14:18 aspirin AdvReac Upset Verified 09/10/24 14:18 Stomach Family History Father , @ 75 Lung cancer Mother Colon cancer Heart disease CVA (cerebral vascular accident) Sudden cardiac Sister , at 60 Cancer Sister , at 45 Cancer of kidney Surgical History History of left knee replacement History of vaginal hysterectomy History of tonsillectomy History of colonoscopy h/o plantar fascitis surgery Social History Smoking Status: Never smoker alcohol intake: current details: Social substance use type: does not use what type of physical activity do you participate in: walking Review of Systems (Anesthesia) ROS Narrative System reviewed and no additional complaints, except as documented.
--- NOTE | 2024-09-14 12:58 | OP.EGD_ITS ---
Patient Name: Radha Deras Procedure Date: 09/14/2024 12:33 PM Date of : 1950 Age: 74 Procedure: Upper GI endoscopy Indications: Iron deficiency anemia, Melena, Suspected upper gastrointestinal bleeding Providers: Phil Youngblood DO Medicines: Monitored Anesthesia Care Patient Profile: This is a 74 year old female. Refer to note in patient chart for documentation of history and physical. Patient has symptoms of acute dyspepsia and acute nausea. Complications: No immediate complications. Procedure: Pre-Anesthesia Assessment: - Prior to the procedure, a History and Physical was performed, and patient medications and allergies were reviewed. The patient is competent. The risks and benefits of the procedure and the sedation options and risks were discussed with the patient. All questions were answered and informed consent was obtained. Patient identification and proposed procedure were verified by the physician in the pre-procedure area. Mental Status Examination: alert and oriented. Airway Examination: normal oropharyngeal airway and neck mobility. Respiratory Examination: clear to auscultation. CV Examination: normal. Prophylactic Antibiotics: The patient does not require prophylactic antibiotics. Prior Anticoagulants: The patient has taken no anticoagulant or antiplatelet agents except for NSAID medication. ASA Grade Assessment: II - A patient with mild systemic disease. After reviewing the risks and benefits, the patient was deemed in satisfactory condition to undergo the procedure. The anesthesia plan was to use monitored anesthesia care (MAC). Immediately prior to administration of medications, the patient was re-assessed for adequacy to receive sedatives. The heart rate, respiratory rate, oxygen saturations, blood pressure, adequacy of pulmonary ventilation, and response to care were monitored throughout the procedure. The physical status of the patient was re-assessed after the procedure. After obtaining informed consent, the endoscope was passed under direct vision. Throughout the procedure, the patient's blood pressure, pulse, and oxygen saturations were monitored continuously. The Endoscope was introduced through the mouth, and advanced to the second part of duodenum. The upper GI endoscopy was accomplished without difficulty. The patient tolerated the procedure well. Scope In: 12:46:21 PM Scope Out: 12:52:03 PM Total Procedure Duration Time 0 hours 5 minutes 42 seconds Findings: Non-severe esophagitis with no bleeding was found 35 to 39 cm from the incisors. One oozing cratered gastric ulcer with pigmented material was found on the lesser curvature of the stomach. The lesion was 15 mm in largest dimension. For hemostasis, two hemostatic clips were successfully placed. 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 There was no bleeding at the end of the procedure. Diffuse severely erythematous mucosa without bleeding was found in the entire examined stomach. Many non-bleeding linear duodenal ulcers with no stigmata of bleeding were found in the duodenal bulb, in the first portion of the duodenum and in the second portion of the duodenum. The largest lesion was 4 mm in largest dimension. Impression: - Non-severe erosive esophagitis with no bleeding. - Oozing gastric ulcer with pigmented material. Clips were placed. 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 - Erythematous mucosa in the stomach. - Non-bleeding duodenal ulcers with no stigmata of bleeding. - No specimens collected. Recommendation: - Return patient to referring hospital for ongoing care. - Resume previous diet. - Continue present medications. - Use Protonix (pantoprazole) 40 mg PO BID indefinitely. - Use sucralfate tablets 1 gram PO QID for 4 weeks. Procedure Code(s): --- Professional --- 04203, Esophagogastroduodenoscopy, flexible, transoral; with control of bleeding, any method CPT copyright 2021 [employer]. All rights reserved. The codes documented in this report are preliminary and upon od grinder operator review may be revised to meet current compliance requirements. Phil Youngblood DO 09/14/2024 12:58:11 PM This report has been signed electronically. Number of Addenda: 0 Note Initiated On: 09/14/2024 12:33 PM
--- NOTE | 2024-09-14 12:58 | OP.CCLET_ITS ---
09/14/2024 Edd Arizmendi [address] [place] [address] Re : Upper GI endoscopy procedure for Radha Deras Dear Dr. Arizmendi This procedure was performed on Saturday, September 14, 2024. My impressions and recommendations are as follows: Impressions : - Non-severe erosive esophagitis with no bleeding. - Oozing gastric ulcer with pigmented material. Clips were placed. 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 - Erythematous mucosa in the stomach. - Non-bleeding duodenal ulcers with no stigmata of bleeding. - No specimens collected. Recommendations : - Return patient to referring hospital for ongoing care. - Resume previous diet. - Continue present medications. - Use Protonix (pantoprazole) 40 mg PO BID indefinitely. - Use sucralfate tablets 1 gram PO QID for 4 weeks. My findings are described in the full procedure note, which is enclosed. If I can be of further assistance, please feel free to contact me at . Sincerely, Phil Youngblood, 09/14/2024 12:58:11 PM This report has been signed electronically.
--- NOTE | 2024-09-14 13:03 | PCM.POST.ANE ---
Anesthesia: Postop Eval I Current Vital Signs Temperature: 97 F Pulse Rate: 86 Blood Pressure: 100/56 Respiratory Rate: 14 Pulse Ox: 97 Oxygen Delivery Method: Room Air Assessment Airway patent: Yes Spontaneous unlabored respirations: Yes Mental status: Asleep nausea: No Vomiting: No Anesthesia Complication: No Fluid Hydration Crystalloid volume administer (ml): 30 Total IV fluid infused: 30 Progress Note Anesthesia document: Postop Eval 1 completed: Yes
--- NOTE | 2024-09-14 13:34 | PCM.POSTANE2 ---
Anesthesia Postop Eval I Sum Postop Eval Completion status Anesthesia document: Postop Eval 1 completed: Yes Anesthesia Postop Eval I Summary Anesthesia Postop Eval I Summary: Anesthesia Postop Eval I: Assessment Summary Airway patent Yes 09/14/24 13:04 [email or web address] Spontaneous unlabored Yes 09/14/24 13:04 [email or web address] respirations Mental status Asleep 09/14/24 13:04 [email or web address] nausea No 09/14/24 13:04 [email or web address] Vomiting No 09/14/24 13:04 [email or web address] Anesthesia Postop Eval I: Fluid Summary Crystalloid volume administer 30 09/14/24 13:04 [email or web address] (ml) Colloids volume administered ( ml) Blood Product volume administered (ml) Total IV fluid infused 30 09/14/24 13:04 [email or web address] Anesthesia Postop Eval I: Summary Notes Anesthesia Complication No 09/14/24 13:04 [email or web address] Anesthesia Complication Comment: Post-operative progress note Anesthesia: Postop Eval II Evaluation Mental status: Awake Pain Level: 0 nausea: No Vomiting: No
[2024-09-14] MEDS: Clobetasol Propionate 0.05% Ointment 1 APPLIC TOPICAL (14:56)
[2024-09-14] MEDS: Menthol/Lanolin/Calamine/Znox 113 GM Tube 1 APPLIC TOPICAL (14:57)
[2024-09-14] MEDS: Triamcinolone 0.1% Ointment 15 gm tube 1 APPLIC TOPICAL (14:58)
[2024-09-14] MEDS: Nystatin Powder 15gm Bottle 1 APPLIC TOPICAL (14:58)
--- NOTE | 2024-09-14 15:02 | PCM.TXEXTCAR ---
Diet Diet Order/Speech Therapy: 09/14/24 15:10 Diet: Carbohydrate Controlled Food consistency:: Soft & Bite Sized Liquid Consistency:: Regular/Thin Dietary Modifications:: Consistent Carbohydrate Type of Dietary Supplement:: Kyle Fruit Punch w/ B&D Diet Comments: Supervision at meals, family ok to supervise, meds crushed in PUDDING Routine Orders/Code Status Routine Lab Work: - (Fingerstick blood sugars AC nightly, Humalog subcu per sliding scale: 200-250: 5 units, 251-300: 8 units, 301-350: 12 units) Code Status: DNRCC-A (no intubation) DC O2, CPAP, BIPAP needs Additional Home O2 Discharge instructions: No Wound(s) upper body: Wound Type: open blistered areas buttocks: Wound Type: Pressure Injury cleft: Wound Type: pressure/moisture Dressing Change: new foam dressing applied left upper back: Wound Type: nearly healed blisters bilateral hands: Wound Type: healing blisters Therapies Weight Bearing: Full weight bearing Physical Therapy: Eval and Treat Occupational Therapy: Eval and Treat Speech Therapy: Eval and Treat Problem/Diagnosis (1) Dysphagia: Status: Acute Code(s): R13.10 - Dysphagia, unspecified (2) FUENTES (acute kidney injury): Status: Acute Code(s): N17.9 - Acute kidney failure, unspecified (3) Acute dehydration: Status: Acute Code(s): E86.0 - Dehydration Plan 1. Elevated creatinine due to dehydration-BMP will be repeated tomorrow #2 acute debility-PT and OT are seeing patient, she will need short-term placement in retirement facility #3 cognitive impairment-etiology unclear at this point, supportive care will be given to the patient, I talked at length with her , they are working up for cognitive decline as an outpatient at neurology. #4 type 2 diabetes-patient's blood sugars will be monitored, sliding scale insulin will be administered as needed #5 chronic depression-patient is on Zoloft #6 hyperlipidemia-patient is on a statin #7 bullous pemphigoid-patient will remain on her outpatient medications #8 past history of melanoma-patient is due to get outpatient imaging studies performed according to her #7 oropharyngeal dysphagia #8 reflux esophagitis #9 gastric ulcer #10 duodenal ulcers Total clinical time spent by myself addressing the patient's medical issues, reviewing all of her data, and collaborating with patient's care team: 35 minutes Allergies/Procedures Done in Hospital Allergies adhesive tape Allergy (Verified 09/10/24 14:18) Rash aspirin Adverse Reaction (Verified 09/10/24 14:18) Upset Stomach Procedures: EGD Type of Care/Length of Stay Estimated LOS: Convalescent Care Less Than 30 days Type of Care Needed: Skilled Rehab Potential: Good Prognosis: Good Additional Orders/Day of Discharge H&P will serve as current which was dated: 09/10/24 Day of Discharge: 09/14/24 Dietary and Speech Recommendations Dietitian Recommendations/Changes: Recommend advanced diet as tolerated to consistent carbohydrate diet per BUILDING PRINCIPAL consistency/texture recommendations. As diet is advanced, continue 120ml glucerna shake TID with medpass. As diet is advanced, continue Kyle BID with breakfast and dinner. Will adjust ONS, as needed. Discharge Plan Admission Admit Date/Time: 09/10/24 18:33 Primary Reason for Your Visit: Acute debility, cognitive impairment-etiology unknown Attending Provider: Jesus Jordan Primary Care Provider: Edd Arizmendi Consulting Providers: Latricia Orta Discharge Orders/Prescriptions Prescriptions: New melatonin 3 mg Tablet 3 mg PO QHS PRN PRN (Reason: Insomnia) Qty: 0 0RF nystatin [Nyamyc] 100,000 unit/gram Powder 1 applic topical BID Qty: 0 0RF Protocol: *Topical Application Instructions APPLICATION INSTRUCTIONS: apply under breasts and abdominal folds menthol-zinc oxide [Calmoseptine] 0.44-20.6 % Ointment 1 applic topical BID Qty: 0 0RF Protocol: *Topical Application Instructions APPLICATION INSTRUCTIONS: apply to buttocks pantoprazole [Protonix] 40 mg tablet,delayed release (DR/EC) 40 mg PO BID Qty: 1 0RF sucralfate [Carafate] 1 gram tablet 1 g PO 4X/DAY Qty: 1 0RF Rx Instructions: Use for 4 weeks Continued (DME) blood sugar diagnostic Strip See Rx Instructions .ROUTE .MEDSUPPLY Qty: 10 Patient Comments: TEST BLOOD SUGAR(S) 1-2 TIMES DAILY. DX: 250.0. INSULIN: NO Rx Instructions: As directed (DME) lancets 33 gauge misc See Rx Instructions .ROUTE .MEDSUPPLY Qty: 100 Patient Comments: TEST BLOOD SUGAR(S) 1-2 DAILY. DX: 250.0. INSULIN: NO Rx Instructions: As directed atorvastatin 10 MG tablet 10 mg PO QHS prednisone 10 mg tablet 10 mg PO DAILY Patient Comments: PLEASE SEE ATTACHED FOR DETAILED DIRECTIONS. PT ON DAY 7 OF 2.5 TABLETS OF 09/10/14 doxycycline monohydrate 100 mg capsule 100 mg PO BID sulfamethoxazole-trimethoprim 800-160 mg tablet 1 tab PO .COMPLEX Rx Instructions: 1 TAB orally TUESDAY, TUESDAY, AND TUESDAY; calcium carbonate-vitamin D3 1,000 mg-20 mcg (800 unit) tablet 1 tab PO DAILY cholecalciferol (vitamin D3) [Vitamin D3] 50 mcg (2,000 unit) tablet 50 mcg PO DAILY clobetasol 0.05 % ointment topical BID ondansetron 8 mg tablet,disintegrating 8 mg PO Q8H PRN PRN (Reason: nausea/vomiting) sertraline 50 mg tablet 50 mg PO QHS Discontinued lisinopril 20 mg tablet 20 mg PO DAILY Qty: 30 3RF metoprolol succinate 50 mg tablet extended release 24 hr 50 mg PO DAILY triamcinolone acetonide 0.1 % ointment TOPICAL BID aspirin 81 mg capsule 81 mg PO DAILY Referrals / Follow Up: Edd Arizmendi DO [Primary Care Provider] - Disposition Disposition (needs filled in before D/C Order can be placed): [facility]
[2024-09-14] MEDS: Heparin Injection (Vial) 5,000 UNIT/ML VIAL 5000 UNIT SC (15:03)
[2024-09-14 15:25] LABS: Bedside Glucose 115 mg/dL (74-106)
--- NOTE | 2024-09-14 16:02 | PCM.DC.SUM ---
Providers Date of Admission: 09/10/24 Date of Discharge: 09/14/24 Primary Care Physician: Dr. Edd Arizmendi, DO Consultations 09/11/24 00:50 Consult: Onc/Wound/athletics teacher Routine Comment: Reason for Consult:: bullos pemphigoid blisters/ coccyx ulcer 09/12/24 18:07 Consult: Gastroenterology Routine Consulting Provider: [facility] Reason for Consult: dysphagia EMERGENT Consult: No MD Notified: Yes Date Notified: 09/12/24 Time Notified: 18:07 Method of Notification: Verbal Reason For Visit: KIDNEY FAILURE Diagnosis Discharge Diagnosis (1) Dysphagia: Status: Acute Code(s): R13.10 - Dysphagia, unspecified (2) FUENTES (acute kidney injury): Status: Acute Code(s): N17.9 - Acute kidney failure, unspecified (3) Acute dehydration: Status: Acute Code(s): E86.0 - Dehydration Plan 1. Elevated creatinine due to dehydration-BMP will be repeated tomorrow #2 acute debility-PT and OT are seeing patient, she will need short-term placement in [facility] facility #3 cognitive impairment-etiology unclear at this point, supportive care will be given to the patient, I talked at length with her , they are working up for cognitive decline as an outpatient at neurology. #4 type 2 diabetes-patient's blood sugars will be monitored, sliding scale insulin will be administered as needed #5 chronic depression-patient is on Zoloft #6 hyperlipidemia-patient is on a statin #7 bullous pemphigoid-patient will remain on her outpatient medications #8 past history of melanoma-patient is due to get outpatient imaging studies performed according to her #7 oropharyngeal dysphagia #8 reflux esophagitis #9 gastric ulcer #10 duodenal ulcers Total clinical time spent by myself addressing the patient's medical issues, reviewing all of her data, and collaborating with patient's care team: 35 minutes Medications at Discharge Home Medications atorvastatin 10 mg tablet 10 mg PO QHS cholesterol 03/25/18 blood sugar diagnostic #10 ea 11/29/19 lancets 33 gauge #100 ea 11/29/19 calcium 1,000 mg (as carbonate)-vitamin D3 20 mcg (800 unit) tablet 1 tab PO DAILY osteoporosis 09/10/24 cholecalciferol (vitamin D3) 50 mcg (2,000 unit) tablet (Vitamin D3) 50 mcg PO DAILY supplement 09/10/24 clobetasol 0.05 % topical ointment 1 applic topical BID affected areas 09/10/24 doxycycline monohydrate 100 mg capsule 100 mg PO BID antibiotic 09/10/24 ondansetron 8 mg disintegrating tablet 8 mg PO Q8H PRN PRN nausea/vomiting 09/10/24 prednisone 10 mg tablet 10 mg PO DAILY RASH 09/10/24 sertraline 50 mg tablet 50 mg PO QHS depressive disorder 09/10/24 sulfamethoxazole 800 mg-trimethoprim 160 mg tablet 1 tab PO .COMPLEX infection 09/10/24 melatonin 3 mg tablet 3 mg PO QHS PRN PRN Insomnia #0 tabs 09/14/24 menthol 0.44 %-zinc oxide 20.6 % topical ointment (Calmoseptine) 1 applic topical BID affected areas #0 grams 09/14/24 nystatin 100,000 unit/gram topical powder (Nyamyc) 1 applic topical BID moisture in folds #0 grams 09/14/24 pantoprazole 40 mg tablet,delayed release (Protonix) 40 mg PO BID GERD #1 TAB 09/14/24 sucralfate 1 gram tablet (Carafate) 1 g PO 4X/DAY antacid #1 TAB 09/14/24 Hospital Course Operations None Procedures EGD Summary of Care Provided Minutes Spent on Discharge: 31 Hospital Course: This 74-year-old white female was seen in the emergency room at [facility] with complaints of generalized weakness and not being able to perform ADLs at home. This had been going on about a month, home health and physical therapy had been seeing the patient and home and recommended the patient come in for evaluation in the emergency room. Patient is being treated for bullous pemphigoid and was recently diagnosed with melanoma in her left lower leg and foot which was surgically removed and the skin graft was applied. Labs obtained showed an elevated white blood cell count 24.8, hemoglobin was 12.9, BUN was elevated at 70 and creatinine was elevated 2.13. AST was elevated at 46 and alkaline phosphatase was 188. Urinalysis was unremarkable, chest x-ray showed no acute abnormality. Patient was admitted for debility and acute dehydration, patient was seen by PT and OT and IV fluids were given. Patient was felt to benefit from inpatient skilled services and request for TCU was placed and they were able to accept the patient. On 09/14/2024, patient was seen and examinedalert and no apparent distress General Appearance: cooperative, well kempt and well developed Orientation / Consciousness: Patient is lethargic and does not carry on a conversation with me HEENT normocephalic, head/scalp atraumatic and moist oral mucous membranes Eyes PERRL, EOMs intact bilaterally and conjunctivae normal Neck supple, no JVD, thyroid normal and no carotid bruits General: trachea midline Resp normal respiratory effort, no retractions, no use of accessory muscles and clear to auscultation bilaterally Auscultation: Negative for rales, rhonchi or wheezes Cardio regular rate, regular rhythm, S1 normal heart sound, S2 normal heart sound, no murmurs, no rub and no gallops GI normal to inspection, nondistended, normoactive bowel sounds, soft to palpation, non-tender and non-distended Extremity no clubbing, cyanosis or edema Skin no rashes or lesions noted General Skin Exam: no breakdown Neuro CN's II-XII intact bilaterally Neuro Narrative: Patient is lethargic Sensorium / Orientation: Patient is lethargic and sleepy Psych Psych Narrative: Patient is lethargic Patient was transferred to TCU in stable condition on 09/14/2024 Weight / BMI Weight Weight: 88.7 kg Body Mass Index (BMI) 27.2 ABG / Lab / Microbiology Data 09/11/24 05:55 09/14/24 06:18 Laboratory: Laboratory Results - last 24 hr 09/13/24 16:29: POC Glucose 138 H 09/13/24 23:48: POC Glucose 160 H 09/14/24 06:18: APTT 28.1, Sodium 140, Potassium 4.6, Chloride 112 H, Carbon Dioxide 23.0, Anion Gap 5, BUN 59 H, Creatinine 1.55 H, Estim Creat Clear Calc 39.58, Est GFR (MDRD) Af Amer 42 L, Est GFR (MDRD) Non-Af 35 L, BUN/Creatinine Ratio 38.1 H, Glucose 138 H, Calcium 9.3 09/14/24 06:21: POC Glucose 129 H 09/14/24 14:32: POC Glucose 115 H Microbiology: Microbiology 09/10/24 17:44 Blood Culture (Wb) - Anticubital Left Blood Culture - Final No growth in 5 days. 09/11/24 00:35 Stool Enteric Bacteriology - Final 09/11/24 00:35 Stool Clostridioides difficile (PCR) - Final 09/10/24 21:15 Mucosa - Nose SARS-CoV-2, Influenza & RSV (PCR) - Final D/C Instructions DC O2, CPAP, BIPAP Needs Additional Home O2 Discharge instructions: No DC home with Oxygen: No Meaningful Use Info Meaningful Use Meaningful Use Diagnoses (Choose all that apply): None applicable Ischemic Stroke Statin Dosing Therapy Reference: STATIN DOSE THERAPY REFERENCE: * Patients > 75 years receive moderate or high dose statin therapy. * Patients 75 years or YOUNGER should receive HIGH intensity statin dose unless contraindicated. You will be required to document reason for non-treatment if statin daily dose does not meet guidelines. HIGH DOSE STATIN THERAPY DAILY Atorvastatin > than or = to 40 mg Rosuvastatin > than or = to 20 mg Amlodipine + Atorvastatin > than or = to 2.5/40 mg Ezetimibe + Simvastatin 10/80 mg Simvastatin 80mg Discharge Plan Admission Admit Date/Time: 09/10/24 18:33 Primary Reason for Your Visit: Acute debility, cognitive impairment-etiology unknown Attending Provider: Jesus Jordan Primary Care Provider: Edd Arizmendi Consulting Providers: Latricia Orta Discharge Orders/Prescriptions Prescriptions: New melatonin 3 mg Tablet 3 mg PO QHS PRN PRN (Reason: Insomnia) Qty: 0 0RF nystatin [Nyamyc] 100,000 unit/gram Powder 1 applic topical BID Qty: 0 0RF Protocol: *Topical Application Instructions APPLICATION INSTRUCTIONS: apply under breasts and abdominal folds menthol-zinc oxide [Calmoseptine] 0.44-20.6 % Ointment 1 applic topical BID Qty: 0 0RF Protocol: *Topical Application Instructions APPLICATION INSTRUCTIONS: apply to buttocks pantoprazole [Protonix] 40 mg tablet,delayed release (DR/EC) 40 mg PO BID Qty: 1 0RF sucralfate [Carafate] 1 gram tablet 1 g PO 4X/DAY Qty: 1 0RF Rx Instructions: Use for 4 weeks Continued (DME) blood sugar diagnostic Strip See Rx Instructions .ROUTE .MEDSUPPLY Qty: 10 Patient Comments: TEST BLOOD SUGAR(S) 1-2 TIMES DAILY. DX: 250.0. INSULIN: NO Rx Instructions: As directed (DME) lancets 33 gauge misc See Rx Instructions .ROUTE .MEDSUPPLY Qty: 100 Patient Comments: TEST BLOOD SUGAR(S) 1-2 DAILY. DX: 250.0. INSULIN: NO Rx Instructions: As directed atorvastatin 10 MG tablet 10 mg PO QHS prednisone 10 mg tablet 10 mg PO DAILY Patient Comments: PLEASE SEE ATTACHED FOR DETAILED DIRECTIONS. PT ON DAY 7 OF 2.5 TABLETS OF 09/10/24 doxycycline monohydrate 100 mg capsule 100 mg PO BID sulfamethoxazole-trimethoprim 800-160 mg tablet 1 tab PO .COMPLEX Patient Comments: unsure if pt taking, not on med list Rx Instructions: 1 TAB orally TUESDAY, TUESDAY, AND TUESDAY; calcium carbonate-vitamin D3 1,000 mg-20 mcg (800 unit) tablet 1 tab PO DAILY cholecalciferol (vitamin D3) [Vitamin D3] 50 mcg (2,000 unit) tablet 50 mcg PO DAILY clobetasol 0.05 % ointment 1 applic topical BID ondansetron 8 mg tablet,disintegrating 8 mg PO Q8H PRN PRN (Reason: nausea/vomiting) sertraline 50 mg tablet 50 mg PO QHS Discontinued lisinopril 20 mg tablet 20 mg PO DAILY Qty: 30 3RF metoprolol succinate 50 mg tablet extended release 24 hr 50 mg PO DAILY triamcinolone acetonide 0.1 % ointment TOPICAL BID aspirin 81 mg capsule 81 mg PO DAILY Referrals / Follow Up: Edd Arizmendi DO [Primary Care Provider] - Disposition Disposition (needs filled in before D/C Order can be placed): Shelter Facility Charges/Coding Visit Charges Inpatient E&M: 73269 Disch Hosp >30min
--- NOTE | 2024-09-14 16:09 | NURSING ---
I left a voicemail for the pt's Antione to call back to PCU so we can inform him that his will be d/c to TCU today.
[2024-09-14] MEDS: Glucerna Shake 120 ML LIQUID PO (16:32)
[2024-09-14 16:53] LABS: Bedside Glucose 109 mg/dL (74-106)
== END 2024-09-14 19:05 | disposition skilled nursing facility (03) | DRG 640 ==
LOC: ED 14:52 → PCU 21:32
PROVIDERS: Internal Medicine Gastroenterology; Admitting Provider Internal Medicine; Emergency Provider Emergency Medicine; PCP Student in an Organized Health Care Education/Training Program; Visit Provider Internal Medicine
PROC: 0DJ08ZZ Inspection of Upper Intestinal Tract, Via Natural or Artificial Opening Endoscopic (ICD-10-PCS; CPT 43235; principal; 2024-09-14 11:55)
DX: E86.0 Dehydration (principal); K26.4 Chronic or unspecified duodenal ulcer with hemorrhage; L12.0 Bullous pemphigoid; R13.10 Dysphagia, unspecified; E11.9 Type 2 diabetes mellitus without complications; D50.9 Iron deficiency anemia, unspecified; E78.5 Hyperlipidemia, unspecified; E87.5 Hyperkalemia; Z66 Do not resuscitate; I10 Essential (primary) hypertension; F32.A Depression, unspecified; K21.00 Gastro-esophageal reflux disease with esophagitis, without bleeding; F41.9 Anxiety disorder, unspecified; K31.89 Other diseases of stomach and duodenum; K25.9 Gastric ulcer, unspecified as acute or chronic, without hemorrhage or perforation; R53.81 Other malaise
CPT/HCPCS: 36415; 71045; 74230; 76770; 80048; 80053; 81001; 82436; 82570; 82607; 82962; 83036; 83605; 83735; 83935; 84100; 84133; 84300; 84443; 84484; 84540; 85025; 85730; 87040; 87493; 87506; 87631; 92610; 92611; 93005; 97116; 97163; 97166; 97530; 97535; 97802; 97803; 99285; P9612; A4216; J2405

== ENCOUNTER 2024-09-14 19:28 | Inpatient (IN) | payer MEDICARE, OTHER, SELFPAY ==
[2024-09-14 19:45] VITALS: BP 135/61; PULSE 112; RESP 20; TEMP 36.6; O2SAT 86; O2SAT 95
[2024-09-14 19:52] VITALS: BMI 26.4
--- NOTE | 2024-09-14 20:25 | HP.PCM_ITS ---
HPI - General General Date of Admission: 09/14/24 Date of Service: 09/14/24 Chief Complaint: Here for rehabilitation. HPI Narrative CLAUDIA GRADY, is a 74 Female who presents with followin09/10/2024 [facility] ED with weakness. Weakness, unable to get around for 1 month. [facility] PT/OT recommended ER. Recent melanoma left lower extremity, status post surgery, skin graft. On T-VEC immunotherapy injections, developed bullous pemphigoid, injections stopped. 2 weeks ago, bullous pemphigoid flare treated with prednisone taper. Poor appetite, decreased oral fluid intake, lightheaded with standing. IV fluids given, Chest X-ray negative, EKG okay, elevated WBC 2/2 prednisone. Elevated lactic acid, NAHOMI. 09/10/2024 Admit [facility]. IV fluids, renal ultrasound, urine lytes for NAHOMI. PT/OT for discharge planning. Check covid. Bullous pemphigoid improved. 09/11/2024 Confused. requested SNF for PT/OT. 2 Liters of IV fluid for Nahomi, repeat BMP tomorrow. 09/12/2024 ST recommended GI for abnormal modified barium swallow. Still confused. 09/12/2024 Dr. Youngblood recommended EGD. 09/13/2024 Lethargic. Repeat BMP for NAHOMI. PT/OT for SNF. Evaluate cognitive decline as outpatient. 09/14/2024 Dr. Youngblood EGD non-severe esophagitis without bleeding, Oozing gastric ulcer with pigmented material clipped. Stomach erythematous mucosa. Non-bleeding duodenal ulcer with no bleeding. 09/14/2024 Admit to TCU with debility, here for rehabilitation, strengthening, prior to discharge home with . [facility] Medical History Tremor Obesity (BMI 35.0-39.9 without comorbidity) Primary osteoarthritis of both knees Postmenopausal disorder Microalbuminuria due to type 2 diabetes mellitus Hypercholesterolemia History of nephrolithiasis History of hypertension history of dyslipidemia Hypertension Diabetes Home Medications ?Medication ?Instructions ?Recorded ?Last Taken ?Type atorvastatin 10 mg tablet 10 mg PO QHS cholesterol 03/25/18 09/13/24 History blood sugar diagnostic #10 ea 11/29/19 Unknown History lancets 33 gauge #100 ea 11/29/19 Unknown History calcium 1,000 mg (as 1 tab PO DAILY osteoporosis 09/10/24 Unknown History carbonate)-vitamin D3 20 mcg (800 unit) tablet cholecalciferol (vitamin D3) 50 50 mcg PO DAILY supplement 09/10/24 Unknown History mcg (2,000 unit) tablet (Vitamin D3) clobetasol 0.05 % topical ointment 1 applic topical BID affected areas 09/10/24 09/14/24 History doxycycline monohydrate 100 mg 100 mg PO BID antibiotic 09/10/24 09/13/24 History capsule ondansetron 8 mg disintegrating 8 mg PO Q8H PRN PRN nausea/vomiting 09/10/24 Unknown History tablet prednisone 10 mg tablet 10 mg PO DAILY RASH 09/10/24 Unknown History sertraline 50 mg tablet 50 mg PO QHS depressive disorder 09/10/24 Unknown History sulfamethoxazole 800 1 tab PO .COMPLEX infection 09/10/24 09/12/24 History mg-trimethoprim 160 mg tablet melatonin 3 mg tablet 3 mg PO QHS PRN PRN Insomnia #0 09/14/24 Unknown Rx tabs menthol 0.44 %-zinc oxide 20.6 % 1 applic topical BID affected 09/14/24 09/14/24 Rx topical ointment (Calmoseptine) areas #0 grams nystatin 100,000 unit/gram topical 1 applic topical BID moisture in 09/14/24 09/14/24 Rx powder (Nyamyc) folds #0 grams pantoprazole 40 mg tablet,delayed 40 mg PO BID GERD #1 TAB 09/14/24 Unknown Rx release (Protonix) sucralfate 1 gram tablet (Carafate) 1 g PO 4X/DAY antacid #1 TAB 09/14/24 Unknown Rx Allergy/AdvReac Type Severity Reaction Status Date / Time adhesive tape Allergy Rash Verified 09/10/24 14:18 aspirin AdvReac Upset Verified 09/10/24 14:18 Stomach Family History Father , @ 75 Lung cancer Mother Colon cancer Heart disease CVA (cerebral vascular accident) Sudden cardiac Sister , at 60 Cancer Sister , at 45 Cancer of kidney Surgical History History of left knee replacement History of vaginal hysterectomy History of tonsillectomy History of colonoscopy h/o plantar fascitis surgery Social History (Updated 09/14/24 @ 20:[address] Sukhwinder Vieyra MD) household members: spouse Smoking Status: Never smoker alcohol intake: current details: Social substance use type: does not use what type of physical activity do you participate in: walking ROS Constitutional Constitutional: Reports weakness; Denies chills, fever(s) or weight gain ENT HEENT: Denies headache(s), nasal congestion or nasal discharge Cardiovascular Cardiovascular: Denies chest pain or palpitations Respiratory/Chest Respiratory/Chest: Denies cough, excessive phlegm production or shortness of breath with exertion Gastrointestinal Gastrointestinal: Denies abdominal pain, nausea or vomiting Genitourinary Genitourinary: Denies dysuria Musculoskeletal Musculoskeletal: Denies joint pain or joint swelling Integumentary Integumentary: Denies rash or wounds Neurologic Neurologic: Denies focal weakness, numbness or tingling Psychiatric Psychiatric: Denies anxiety, auditory hallucinations, depression, homicidal ideation or suicidal ideation Physical Exam Const alert General Appearance: cooperative HEENT normocephalic Eyes PERRL and EOMs intact bilaterally Neck supple, no JVD and no carotid bruits Resp normal respiratory effort, normal air movement and clear to auscultation bilaterally Cardio regular rate and regular rhythm GI normal to inspection, nondistended, normoactive bowel sounds, non-tender and non-distended Extremity normal capillary refill General Extremity: Negative for edema Skin no rashes or lesions noted General Skin Exam: no breakdown Psych affect normal Appearance: appropriate Assessment & Plan Assessment/Plan (1) Debility: (2) Weakness: (3) NAHOMI (acute kidney injury): (4) Dehydration: (5) Dysphagia: (6) Encephalopathy: (7) Gastric ulcer: (8) Melanoma in situ of left lower extremity: (9) Essential (primary) hypertension: (10) Hyperlipidemia, unspecified: (11) Depression: (12) Type 2 diabetes mellitus with hyperglycemia: PLAN: Plan 74 year old female with below past medical history hospitalized for weakness, acute kidney injury, dehydration, encephalopathy, complicated by dysphagia, gastric ulcer, admitted to TCU with debility, here for rehabilitation, strengthening, prior to discharge home with . * Debility - PT/OT. * Pain - Tylenol 1000mg q6 prn pain (1-10). * Bowel - senna/colace 1 tablet twice daily, Magnesium citrate 300mL po daily prn. * Adult immunization - Administer pneumonia vaccine, covid vaccine, flu vaccine as appropriate. * DVT prophylaxis - Lovenox 40mg sc daily. * Hyperlipidemia - Atorvastatin 10mg qhs. * Calcium deficiency - Calcium D 1 tablet daily. * Vitamin D deficiency - D3 50mcg daily. * Bullous pemphigoid - Clobetasol ointment topical bid, Prednisone 10mg daily, Doxycycline 100mg bid. * Insomnia - Melatonin 3mg qhs prn. * Skin irritation - Calmoseptine topical bid. * Tinea Corporis - Nystatin powder topical bid. * Nausea - Zofran odft 8mg q8 prn. * Gastric ulcer - Pantoprazole 40mg bid, Sucralfate 1gm qachs. * Melanoma left leg - Bactrim DS 1 tablet MWF PJP prophylaxis.
[2024-09-14] MEDS: Sucralfate 1 GM Tablet PO (23:20)
[2024-09-14] MEDS: predniSONE 10 MG Tablet PO (23:20)
[2024-09-14] MEDS: Doxycycline 100 MG CAPSULE PO (23:30)
[2024-09-14] MEDS: Sertraline 50 MG Tablet PO (23:30)
[2024-09-14] MEDS: Pantoprazole Sodium 40 MG Tablet PO (23:30)
[2024-09-14] MEDS: Clobetasol Propionate 0.05% Ointment 1 APPLIC TOPICAL (23:30)
[2024-09-14] MEDS: Senna/Docusate Sodium 1 Tablet PO (23:30)
[2024-09-14] MEDS: Atorvastatin Calcium 10 MG Tablet PO (23:30)
[2024-09-14] MEDS: Menthol/Lanolin/Calamine/Znox 113 GM Tube 1 APPLIC TOPICAL (23:36)
[2024-09-14] MEDS: Nystatin Powder 15gm Bottle 1 APPLIC TOPICAL (23:36)
[2024-09-15] MEDS: Enoxaparin 40 MG/0.4 ML Syringe SC (05:43)
[2024-09-15] MEDS: Sucralfate 1 GM Tablet PO ×2 (05:45→13:16)
[2024-09-15 06:40] LABS: Bedside Glucose 144 mg/dL (74-106)
[2024-09-15 07:37] LABS: Absolute Lymphocyte Count 0.55 X10^3/uL (0.83-4.51); Absolute Neutrophil Count 18.3 X10^3/uL (2.0-7.7); Basophil# 0.07 X10^3/uL; Basophil% 0.3 % (0-1); Hematocrit 35.9 % (37-47); Hemoglobin 11.4 g/dL (12.0-15.0); Lymphocyte # 0.55 X10^3/ul (0.83-4.51); Lymphocyte % 2.7 % (19-41); Mean Corp Hgb Conc 31.8 g/dL (32-36); Mean Corpuscular Hgb 28.7 pg (27.0-32.0); Mean Corpuscular Volume 90.4 fL (81-99); Mean Platelet Vol. 9.8 fl (6.2-12.0); Monocyte# 0.68 X10^3/uL; Monocyte% 3.3 % (0-10); NRBC Flagged by Analyzer 0.1 % (0-5); Neutrophil # 18.34 X10^3/uL (2.7-7.7); Neutrophil % 89.9 % (47-70); POSITIVE COUNT YES; POSITIVE DIFFERENTIAL YES; Platelet Count 82 K/mm3 (150-450); RBC Distribution Width CV 14.4 % (11.6-14.6); Red Blood Count 3.97 M/mm3 (4.2-5.4); White Blood Count 20.4 K/mm3 (4.4-11.0)
[2024-09-15 07:50] LABS: Differential Indicated SCAN CRITERIA MET
[2024-09-15 08:18] LABS: Anion Gap 6 (5-15); BUN 61 mg/dL (7-18); BUN/Creat Ratio 37.2 RATIO (10-20); Calcium,Total 9.3 mg/dL (8.5-10.1); Chloride 111 mmol/L (98-107); Creatinine, Serum 1.64 mg/dL (0.55-1.02); EST Glomerular Filtration Rate 33 mL/min (>60); Est Glom Filt Rate - Afr Amer 39 mL/min (>60); Estimated Creatinine Clearance 37.08 ml/min; Glucose 157 mg/dL (74-106); Potassium 4.7 mmol/L (3.5-5.1); Sodium Level 139 mmol/L (136-145)
[2024-09-15 08:52] LABS: Differential Comment SCANNED
[2024-09-15 08:53] LABS: Platelet Estimate MOD DEC (ADEQ); Red Cell Morphology NORM C+C NORMAL (NORM C&C)
[2024-09-15 10:36] VITALS: BP 108/60; PULSE 117; RESP 17; TEMP 36.3; O2SAT 98
[2024-09-15] MEDS: predniSONE 10 MG Tablet PO (10:41)
[2024-09-15] MEDS: Menthol/Lanolin/Calamine/Znox 113 GM Tube 1 APPLIC TOPICAL (10:41)
[2024-09-15] MEDS: Doxycycline 100 MG CAPSULE PO (10:42)
[2024-09-15] MEDS: Nystatin Powder 15gm Bottle 1 APPLIC TOPICAL (10:42)
[2024-09-15] MEDS: Pantoprazole Sodium 40 MG Tablet PO (10:42)
[2024-09-15] MEDS: Clobetasol Propionate 0.05% Ointment 1 APPLIC TOPICAL (10:43)
--- NOTE | 2024-09-15 11:51 | NURSING ---
Call placed to Dr. Vieyra. Les noted to patient's tongue. Patient painful at night with incontinence care. New order for Nystatin and purewick HS. VORB.
[2024-09-15] MEDS: Tuberculin,Purif.prot.deriv. 50 TU/ML Vial 0.1 ML ID (13:15)
[2024-09-15] MEDS: NYSTATIN 500,000 UNIT/5 ML UDC 500000 UNIT PO (13:16)
--- NOTE | 2024-09-15 13:48 | PCM.PN.DRR ---
Documented by User: Mario Miles 09/15/24 14:09 TCU RX Drug Regimen Review Subjective/Objective Subjective/Objective Subjective: TCU admission note. 74 year old female with below past medical history hospitalized for weakness, acute kidney injury, dehydration, encephalopathy, complicated by dysphagia, gastric ulcer, admitted to TCU with debility, here for rehabilitation, strengthening, prior to discharge home with . Objective: Allergies adhesive tape Allergy (Verified 09/10/24 14:18) Rash aspirin Adverse Reaction (Verified 09/10/24 14:18) Upset Stomach Current Medications Generic Name Dose Route Start Last Admin Trade Name Freq PRN Reason Stop Dose Admin Acetaminophen 1,000 mg 09/14/24 21:02 Acetaminophen 500 Mg Tablet PO Q6H PRN PRN Pain Score 1-10 Atorvastatin Calcium 10 mg 09/14/24 22:00 09/14/24 23:30 Atorvastatin Calcium 10 Mg Tablet PO 10 mg QHS [facility] Administration Calamine/Phenol 1 applic 09/14/24 22:00 09/15/24 10:41 Menthol/Lanolin/Calamine/Znox 113 Gm Tube TOPICAL 1 applic BID [facility] Administration Protocol Calcium/Vitamin D 1 tablet 09/15/24 08:00 09/15/24 13:18 Calcium Carb/Vitamin D 1 Tablet Tablet PO Not Given DAILYCM [facility] Cholecalciferol 50 mcg 09/15/24 08:00 09/15/24 13:18 Cholecalciferol (Vit D3) 25 Mcg Tablet (1,000 Units) PO Not Given DAILYCM [facility] Clobetasol Propionate 1 applic 09/14/24 22:00 09/15/24 10:43 Clobetasol Propionate 0.05% Ointment TOPICAL 1 applic BID [facility] Administration Protocol Doxycycline Monohydrate 100 mg 09/14/24 22:00 09/15/24 10:42 Doxycycline 100 Mg Capsule PO 100 mg BID [facility] Administration Enoxaparin Sodium 40 mg 09/15/24 06:00 09/15/24 05:43 Enoxaparin 40 Mg/0.4 Ml Syringe SC 40 mg DAILY@0600 [facility] Administration Magnesium Citrate 300 ml 09/14/24 21:02 Magnesium Citrate 300 Ml PO DAILY PRN Constipation Melatonin 3 mg 09/14/24 19:44 Melatonin 3 Mg Tablet PO QHS PRN PRN Insomnia Nystatin 1 applic 09/14/24 22:00 09/15/24 10:42 Nystatin Powder 15gm Bottle TOPICAL 1 applic BID [facility] Administration Protocol Nystatin 500,000 unit 09/15/24 12:00 09/15/24 13:16 Nystatin 500,000 Unit/5 Ml Udc PO 09/25/24 12:01 500,000 unit 4X/DAY [facility] Administration Ondansetron HCl 8 mg 09/14/24 20:35 Ondansetron Odt 4 Mg Tablet PO Q8H PRN PRN nausea/vomiting Pantoprazole Sodium 40 mg 09/14/24 22:00 09/15/24 10:42 Pantoprazole Sodium 40 Mg Tablet PO 40 mg BID [facility] Administration Prednisone 10 mg 09/14/24 20:00 09/15/24 10:41 Prednisone 10 Mg Tablet PO 10 mg DAILYCM [facility] Administration Senna/Docusate Sodium 1 tablet 09/14/24 22:00 09/15/24 13:18 Senna/Docusate Sodium 1 Tablet PO Not Given BID [facility] Sertraline HCl 50 mg 09/14/24 22:00 09/14/24 23:30 Sertraline 50 Mg Tablet PO 50 mg QHS [facility] Administration Sodium Chloride 10 - 40 ml 09/15/24 02:37 0.9% Saline Lock 10 Ml Syringe IV UD PRN SALINE FLUSH Sucralfate 1 gm 09/14/24 22:00 09/15/24 13:16 Sucralfate 1 Gm Tablet PO 1 gm 1HR_ACHS [facility] Administration Trimethoprim/Sulfamethoxazole 1 tablet 09/17/24 08:00 Smz/Tmp Ds Tablet PO MoWeFr@0800 [facility] Tuberculin PPD 0.1 ml 09/22/24 10:00 Tuberculin,Purif.Prot.Deriv. 50 Tu/Ml Vial ID 09/22/24 10:01 X1 ONE Problem List Type 2 diabetes mellitus with hyperglycemia (Acute) Depression (Acute) Hyperlipidemia, unspecified (Acute) Essential (primary) hypertension (Acute) Melanoma in situ of left lower extremity (Acute) Gastric ulcer (Acute) Encephalopathy (Acute) Dehydration (Acute) Weakness (Acute) Dysphagia (Acute) FUENTES (acute kidney injury) (Acute) Debility (Acute) Vital Signs Temp Pulse Resp BP Pulse Ox O2 Del Method 97.4 F L 117 H 17 108/60 98 Room Air 09/15/24 10:36 09/15/24 10:36 09/15/24 10:36 09/15/24 10:36 09/15/24 10:36 09/15/24 10:36 Oxygen Delivery Method Room Air Weight: 85.984 kg Body Mass Index (BMI) 26.4 Sodium 139 mmol/L (136-145) 09/15/24 07:26 Potassium 4.7 mmol/L (3.5-5.1) 09/15/24 07:26 Chloride 111 mmol/L (98-107) H 09/15/24 07:26 Carbon Dioxide 22.0 mmol/L (21.0-32.0) 09/15/24 07:26 Anion Gap 6 (5-15) 09/15/24 07:26 BUN 61 mg/dL (7-18) H 09/15/24 07:26 Creatinine 1.64 mg/dL (0.55-1.02) H 09/15/24 07:26 Est GFR (MDRD) Af Amer 39 mL/min (>60) L 09/15/24 07:26 Est GFR (MDRD) Non-Af 33 mL/min (>60) L 09/15/24 07:26 BUN/Creatinine Ratio 37.2 RATIO (10-20) H 09/15/24 07:26 Glucose 157 mg/dL (74-106) H 09/15/24 07:26 Assessment/Plan: 1. Pain: acetaminophen 1000 mg OP Q6H PRN pain. The patient has not required any PRN doses of acetaminophen so far this admission. Please continue to monitor for pain, and LFTs (AST/ALT = 47/35 U/L on 09/11/24). 2. Bowel: senna/docusate 1 tablet PO BID, magnesium citrate 300 mL PO daily PRN constipation. The patient has not required any PRN doses of magnesium citrate so far this admission, and the patient's last bowel movement was on 09/12/24. Please continue to monitor for bowel movements, constipation, diarrhea, and PRN medication administration. 3. DVT prophylaxis: enoxaparin 40 mg SC daily. Please continue to monitor for s/s of a DVT such as pain/erythema/edema in an extremity as well as hemoglobin levels (Hgb = 11.4 g/dL on 09/15/24), platelet count (Plt = 82 K/mm3 on 09/15/24), and renal function (serum creatinine = 1.64 mg/dL with creatinine clearance =37 mL/min on 09/15/24), and for s/s of bleeding/excessive bruising. 4. Bullous pemphigoid: clobetasol ointment topically BID, prednisone 10 mg PO daily with a meal, doxycycline 100 mg PO BID. Please continue to monitor for skin issues, blood sugars (recent range = 109-165 mg/dL), blood pressures (recent range = 100-142/56-78 mmHg), for insomnia, for photosensitivity, WBC count (WBC = 20.4 K/mm3 on 09/15/24), for fevers/chills (recent temp = 97.4 F), and for GI distress. 5. Gastric ulcer: pantoprazole 40 mg PO BID, sucralfate 1 gram ACHS. Please continue to monitor for abdominal pain, for diarrhea that could indicate clostridium difficile infection, for s/s fo bone resorption issues such as fractures, and magnesium levels (Mg = 2.1 mg/dL on 09/11/24). 6. Melanoma of left leg (PJP prophylaxis): sulfamethoxazole/trimethoprim DS 1 tablet PO Mondays, Wednesdays and Fridays. Please continue to monitor renal function (serum creatinine = 1.64 mg/dL with creatinine clearance =37 mL/min on 09/15/24), for s/s of infection such as fever (recent temp = 97.4 F), WBC count (WBC = 20.4 K/mm3 on 09/15/24), LFTs (AST/ALT = 47/35 U/L on 09/11/24), potassium levels (K = 4.7 mmol/L on 09/15/24), and for diarrhea that could indicate clostridium difficile infection. 7. Hyperlipidemia: atorvastatin 10 mg PO QHS. Please continue to monitor lipid levels (no recent lipid levels documented), LFTs (AST/ALT = 47/35 U/L on 09/11/24), and for myalgias. Please consider ordering an annual lipid panel if clinically indicated. 8. Insomnia: melatonin 3 mg PO QHS PRN insomnia. The patient has not required any PRN doses of melatonin so far this admission. Please continue to monitor for insomnia, PRN medication usage and drowsiness/dizziness. 9. Nausea: ondansetron 8 mg PO Q8H PRN nausea/vomiting. The patient has not required any PRN doses of ondansetron so far this admission. Please continue to monitor for PRN medication administration and nausea. 10. Oral thrush: nystatin 5 mL PO 4x/day through 09/25/24. Please continue to monitor for resolution or oral thrush. 11. Calcium deficiency: calcium/vitamin D 1 tablet PO daily. Please continue to monitor for s/s of calcium deficiency, calcium levels (Ca = 9.3 mg/dL on 09/15/24), and vitamin D levels (no recent vitamin D level documented). 12. Vitamin D deficiency: cholecalciferol 50 mcg PO daily. Please continue to monitor for s/s of vitamin D deficiency as well as vitamin D levels (no recent vitamin D level documented). Please consider obtaining a vitamin D level if clinically indicated. 13. Skin irritation/tinea corporis: calmoseptine 1 application topically BID, nystatin powder 1 application topically BID. Please continue to monitor for resolution of tinea corporis and for resolution of skin irritation. Assessment/Plan for indications treated with psychotropic medications: 1. Depression: sertraline 50 mg PO QHS. This medication appears to be chronic stable long-term use, therefore GDR not recommended. Please continue to monitor for depression, for SI, for s/s of serotonin syndrome, sodium levels (Na = 139 mmol/L on 09/15/24), nausea, diarrhea, dry mouth, dizziness, drowsiness, and fatigue. Medical chart and medication regimen reviewed. The following medication irregularities or issues were identified: 1. Hyperlipidemia: atorvastatin 10 mg PO QHS. Please consider ordering an annual lipid panel if clinically indicated. 2. Vitamin D deficiency: cholecalciferol 50 mcg PO daily. Please consider obtaining a vitamin D level if clinically indicated. Date Date of Note: 09/15/24 Documented by User: Dr. Sukhwinder Vieyra MD 09/15/24 18:15 TCU RX Drug Regimen Review Provider Comments Provider responsibility Provider Comments to Recommendations by Pharmacy Agree
--- NOTE | 2024-09-15 14:50 | EKG12_ITS ---
Test Reason : CP Blood Pressure : */* mmHG Vent. Rate : 172 BPM Atrial Rate : 178 BPM P-R Int : * ms QRS Dur : 74 ms QT Int : 266 ms P-R-T Axes : * 67 147 degrees QTcB Int : 449 ms Atrial fibrillation Nonspecific ST abnormality Abnormal ECG Confirmed by Kwesi Irving ([id number]), editor newspaper ISRAEL RODARTE ([id number]) on 09/17/2024 7:00:39 AM Referred By: BACILIO Confirmed By: Kwesi Irving
--- NOTE | 2024-09-15 15:30 | NURSING ---
Nurse called to patient's bedside by speech therapy to assess patient. Patient pale in color, lethargic, confused. Patient cool to touch. Nurse notes difficulties with obtaining pulse ox. Warm blanket obtained. Patient complaining of shortness of breath with an increase in work of breathing observed. Vitals obtained: BP 140/72 99% RA T 97.3 RR 24. HR tachy and irregular. 2L O2 applied for comfort. Patient complaining of chest palpitations. Stat EKG ordered. Results called to Dr. Vieyra. Report called to ER nurse. Patient exited unit at 1505.
--- NOTE | 2024-09-15 15:32 | NURSING ---
updated on pt going to E.R.
--- NOTE | 2024-09-16 07:33 | PCM.DC.SUM ---
Providers Date of Admission: 09/14/24 Primary Care Physician: Dr. Edd Arizmendi, DO Reason For Visit: ACUTE KIDNEY FAILURE, FTT Diagnosis Discharge Diagnosis (1) Debility: Status: Acute Code(s): R53.81 - Other malaise (2) Weakness: Status: Acute Code(s): R53.1 - Weakness (3) FUENTES (acute kidney injury): Status: Acute Code(s): N17.9 - Acute kidney failure, unspecified (4) Dehydration: Status: Acute Code(s): E86.0 - Dehydration (5) Dysphagia: Status: Acute Code(s): R13.10 - Dysphagia, unspecified (6) Encephalopathy: Status: Acute Code(s): G93.40 - Encephalopathy, unspecified (7) Gastric ulcer: Status: Acute Code(s): K25.9 - Gastric ulcer, unspecified as acute or chronic, without hemorrhage or perforation (8) Melanoma in situ of left lower extremity: Status: Acute Code(s): D03.72 - Melanoma in situ of left lower limb, including hip (9) Essential (primary) hypertension: Status: Acute Code(s): I10 - Essential (primary) hypertension (10) Hyperlipidemia, unspecified: Status: Acute Code(s): E78.5 - Hyperlipidemia, unspecified (11) Depression: Status: Acute Code(s): F32.A - Depression, unspecified (12) Type 2 diabetes mellitus with hyperglycemia: Status: Acute Code(s): E11.65 - Type 2 diabetes mellitus with hyperglycemia Plan 74 year old female with below past medical history hospitalized for weakness, acute kidney injury, dehydration, encephalopathy, complicated by dysphagia, gastric ulcer, admitted to TCU with debility, here for rehabilitation, strengthening, prior to discharge home with . Debility - PT/OT. Pain - Tylenol 1000mg q6 prn pain (1-10). Bowel - senna/colace 1 tablet twice daily, Magnesium citrate 300mL po daily prn. Adult immunization - Administer pneumonia vaccine, covid vaccine, flu vaccine as appropriate. DVT prophylaxis - Lovenox 40mg sc daily. Hyperlipidemia - Atorvastatin 10mg qhs. Calcium deficiency - Calcium D 1 tablet daily. Vitamin D deficiency - D3 50mcg daily. Bullous pemphigoid - Clobetasol ointment topical bid, Prednisone 10mg daily, Doxycycline 100mg bid. Insomnia - Melatonin 3mg qhs prn. Skin irritation - Calmoseptine topical bid. Tinea Corporis - Nystatin powder topical bid. Nausea - Zofran odft 8mg q8 prn. Gastric ulcer - Pantoprazole 40mg bid, Sucralfate 1gm qachs. Melanoma left leg - Bactrim DS 1 tablet MWF PJP prophylaxis. Medications at Discharge Home Medications atorvastatin 10 mg tablet 10 mg PO QHS cholesterol 03/25/18 blood sugar diagnostic #10 ea 11/29/19 lancets 33 gauge #100 ea 11/29/19 calcium 1,000 mg (as carbonate)-vitamin D3 20 mcg (800 unit) tablet 1 tab PO DAILY osteoporosis 09/10/24 cholecalciferol (vitamin D3) 50 mcg (2,000 unit) tablet (Vitamin D3) 50 mcg PO DAILY supplement 09/10/24 clobetasol 0.05 % topical ointment 1 applic topical BID affected areas 09/10/24 doxycycline monohydrate 100 mg capsule 100 mg PO BID antibiotic 09/10/24 ondansetron 8 mg disintegrating tablet 8 mg PO Q8H PRN PRN nausea/vomiting 09/10/24 prednisone 10 mg tablet 10 mg PO DAILY RASH 09/10/24 sertraline 50 mg tablet 50 mg PO QHS depressive disorder 09/10/24 sulfamethoxazole 800 mg-trimethoprim 160 mg tablet 1 tab PO .COMPLEX infection 09/10/24 melatonin 3 mg tablet 3 mg PO QHS PRN PRN Insomnia #0 tabs 09/14/24 menthol 0.44 %-zinc oxide 20.6 % topical ointment (Calmoseptine) 1 applic topical BID affected areas #0 grams 09/14/24 nystatin 100,000 unit/gram topical powder (Nyamyc) 1 applic topical BID moisture in folds #0 grams 09/14/24 pantoprazole 40 mg tablet,delayed release (Protonix) 40 mg PO BID GERD #1 TAB 09/14/24 sucralfate 1 gram tablet (Carafate) 1 g PO 4X/DAY antacid #1 TAB 09/14/24 Hospital Course Operations None Procedures None Summary of Care Provided Minutes Spent on Discharge: 15 Hospital Course: 74 year old female with below past medical history hospitalized for weakness, acute kidney injury, dehydration, encephalopathy, complicated by dysphagia, gastric ulcer, admitted to TCU with debility, here for rehabilitation, strengthening, prior to discharge home with . 09/15/2024 Resident tachycardic, EKG shows new onset atrial fibrillation with RVR. Discharge to [facility] ED 09/15/2024 for evaluation, admission to [facility]. Weight / BMI Weight Weight: 85.984 kg Body Mass Index (BMI) 26.4 ABG / Lab / Microbiology Data 09/15/24 07:26 09/15/24 07:26 Laboratory: Laboratory Results - last 24 hr 09/15/24 07:26: WBC 20.4 H, RBC 3.97 L, Hgb 11.4 L, Hct 35.9 L, MCV 90.4, MCH 28.7, MCHC 31.8 L, RDW Std Deviation 47.0 H, RDW Coeff of Natali 14.4, Plt Count 82 L, MPV 9.8, Immature Gran % (Auto) 3.800 H, Neut % (Auto) 89.9 H, Lymph % (Auto) 2.7 L, [place] % (Auto) 3.3, Eos % (Auto) 0.0, Baso % (Auto) 0.3, Absolute Neuts (auto) 18.3 H, Absolute Lymphs (auto) 0.55 L, Nucleated RBC % 0.1, Differential Comment SCANNED, Platelet Estimate MOD DEC, RBC Morphology NORM C+C, Sodium 139, Potassium 4.7, Chloride 111 H, Carbon Dioxide 22.0, Anion Gap 6, BUN 61 H, Creatinine 1.64 H, Estim Creat Clear Calc 37.08, Est GFR (MDRD) Af Amer 39 L, Est GFR (MDRD) Non-Af 33 L, BUN/Creatinine Ratio 37.2 H, Glucose 157 H, Calcium 9.3 D/C Instructions Discharge Diet: No restrictions Discharge Activity: Return to Normal Activity, May Shower and Use Walker Weight Bearing Status: Weight bearing as tolerated Call your doctor if you observe: Fever of 101 or Higher, Inability to urinate, Inability to have a bowel movement, Shortness of breath, Dizziness, Fainting spells, Swelling in the ankles, Chest pain and Uncontrolled pain DC O2, CPAP, BIPAP Needs Additional Home O2 Discharge instructions: No DC home with Oxygen: No Additional Instructions: Discharge to [facility] ED 09/15/2024 for evaluation, admission to [facility]. Meaningful Use Info Meaningful Use Meaningful Use Diagnoses (Choose all that apply): None applicable Ischemic Stroke Statin Dosing Therapy Reference: STATIN DOSE THERAPY REFERENCE: * Patients > 75 years receive moderate or high dose statin therapy. * Patients 75 years or YOUNGER should receive HIGH intensity statin dose unless contraindicated. You will be required to document reason for non-treatment if statin daily dose does not meet guidelines. HIGH DOSE STATIN THERAPY DAILY Atorvastatin > than or = to 40 mg Rosuvastatin > than or = to 20 mg Amlodipine + Atorvastatin > than or = to 2.5/40 mg Ezetimibe + Simvastatin 10/80 mg Simvastatin 80mg Discharge Plan Admission Admit Date/Time: 09/14/24 19:28 Primary Reason for Your Visit: Debility. Attending Provider: Sukhwinder Vieyra Chi Primary Care Provider: Edd Arizmendi Instructions Additional Instructions / Restrictions: Discharge to [facility] ED 09/15/2024 for evaluation, admission to [facility]. Discharge Orders/Prescriptions Prescriptions: No Action (DME) blood sugar diagnostic Strip See Rx Instructions .ROUTE .MEDSUPPLY Qty: 10 Patient Comments: TEST BLOOD SUGAR(S) 1-2 TIMES DAILY. DX: 250.0. INSULIN: NO Rx Instructions: As directed (DME) lancets 33 gauge misc See Rx Instructions .ROUTE .MEDSUPPLY Qty: 100 Patient Comments: TEST BLOOD SUGAR(S) 1-2 DAILY. DX: 250.0. INSULIN: NO Rx Instructions: As directed atorvastatin 10 MG tablet 10 mg PO QHS prednisone 10 mg tablet 10 mg PO DAILY Patient Comments: PLEASE SEE ATTACHED FOR DETAILED DIRECTIONS. PT ON DAY 7 OF 2.5 TABLETS OF 09/10/24 doxycycline monohydrate 100 mg capsule 100 mg PO BID sulfamethoxazole-trimethoprim 800-160 mg tablet 1 tab PO .COMPLEX Patient Comments: unsure if pt taking, not on med list Rx Instructions: 1 TAB orally TUESDAY, TUESDAY, AND TUESDAY; calcium carbonate-vitamin D3 1,000 mg-20 mcg (800 unit) tablet 1 tab PO DAILY cholecalciferol (vitamin D3) [Vitamin D3] 50 mcg (2,000 unit) tablet 50 mcg PO DAILY clobetasol 0.05 % ointment 1 applic topical BID ondansetron 8 mg tablet,disintegrating 8 mg PO Q8H PRN PRN (Reason: nausea/vomiting) sertraline 50 mg tablet 50 mg PO QHS melatonin 3 mg Tablet 3 mg PO QHS PRN PRN (Reason: Insomnia) Qty: 0 0RF nystatin [Nyamyc] 100,000 unit/gram Powder 1 applic topical BID Qty: 0 0RF Protocol: *Topical Application Instructions APPLICATION INSTRUCTIONS: apply under breasts and abdominal folds menthol-zinc oxide [Calmoseptine] 0.44-20.6 % Ointment 1 applic topical BID Qty: 0 0RF Protocol: *Topical Application Instructions APPLICATION INSTRUCTIONS: apply to buttocks pantoprazole [Protonix] 40 mg tablet,delayed release (DR/EC) 40 mg PO BID Qty: 1 0RF sucralfate [Carafate] 1 gram tablet 1 g PO 4X/DAY Qty: 1 0RF Rx Instructions: Use for 4 weeks Referrals / Follow Up: Edd Arizmendi DO [Primary Care Provider] - Disposition Disposition (needs filled in before D/C Order can be placed): Acute Care Hospital [facility]
--- NOTE | 2024-09-25 10:31 | MDS.RN ---
Information for the MDS was obtained from review of the clinical record, interview of resident, staff, and direct observation of resident?s care.
== END 2024-09-15 20:55 | disposition short-term general hospital (02) | DRG 682 ==
PROVIDERS: Admitting Provider Family Medicine Geriatric Medicine; PCP Student in an Organized Health Care Education/Training Program; Visit Provider Family Medicine Geriatric Medicine
DX: N17.9 Acute kidney failure, unspecified (principal); K25.0 Acute gastric ulcer with hemorrhage; G93.40 Encephalopathy, unspecified; L12.0 Bullous pemphigoid; R13.10 Dysphagia, unspecified; I48.91 Unspecified atrial fibrillation; B35.4 Tinea corporis; D03.72 Melanoma in situ of left lower limb, including hip; E11.65 Type 2 diabetes mellitus with hyperglycemia; F32.A Depression, unspecified; I10 Essential (primary) hypertension; E86.0 Dehydration; E55.9 Vitamin D deficiency, unspecified; K20.90 Esophagitis, unspecified without bleeding; R25.1 Tremor, unspecified; G47.00 Insomnia, unspecified; Z79.52 Long term (current) use of systemic steroids; Z79.899 Other long term (current) drug therapy
CPT/HCPCS: 36415; 80048; 82962; 85025; 92526; 92610; 93005; 97162; 97166; 97530; 97802

== ENCOUNTER 2024-09-15 15:17 | Inpatient (IN) | payer MEDICARE, OTHER, SELFPAY ==
[2024-09-15] VITALS (26 sets, daily range): BP systolic 102–165; BP diastolic 63–144; PULSE 71–176; RESP 14–22; TEMP 36.2–36.9; O2SAT 92–100; BMI 28.3; BMI 26.8
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
[2024-09-15] MEDS: Metoprolol Tartrate 5 MG/5 ML Vial IV ×2 (16:00→16:09)
[2024-09-15 16:02] LABS: Differential Indicated MANUAL DIFF; Hematocrit 39.3 % (37-47); Hemoglobin 12.5 g/dL (12.0-15.0); Mean Corp Hgb Conc 31.8 g/dL (32-36); Mean Corpuscular Hgb 29.2 pg (27.0-32.0); Mean Corpuscular Volume 91.8 fL (81-99); Mean Platelet Vol. 10.5 fl (6.2-12.0); POSITIVE COUNT YES; POSITIVE DIFFERENTIAL YES; POSITIVE MORPHOLOGY YES; Platelet Count 92 K/mm3 (150-450); RBC Distribution Width CV 14.8 % (11.6-14.6); RBC Distribution Width SD 48.6 fl (35.1-43.9); Red Blood Count 4.28 M/mm3 (4.2-5.4); White Blood Count 25.4 K/mm3 (4.4-11.0)
[2024-09-15] MEDS: 0.9% Normal Saline (500mL Bag) 500 ML 999 ML IV ×2 (16:09→18:27)
--- NOTE | 2024-09-15 16:15 | RAD_ITS ---
EXAM: XR CHEST, 1 VIEW CLINICAL INDICATION: chest pain TECHNIQUE: Frontal view of the chest. COMPARISON: 09/10/2024 FINDINGS: LUNGS AND PLEURAL SPACES: Unremarkable. No consolidation or edema. No pneumothorax. No effusion. HEART: Unremarkable. Cardiac silhouette not enlarged. MEDIASTINUM: Central airways and mediastinal contour are unremarkable. BONES/JOINTS: Unremarkable. No acute fracture. SOFT TISSUES: Unremarkable. RAD/Chest 1 View (Portable) IMPRESSION: No radiographic evidence of acute cardiopulmonary disease. Electronically Signed: Isaac Vinson MD at 17:04 EST ,
--- NOTE | 2024-09-15 16:26 | EKG12_ITS ---
Test Reason : REPEAT Blood Pressure : */* mmHG Vent. Rate : 75 BPM Atrial Rate : 75 BPM P-R Int : 132 ms QRS Dur : 70 ms QT Int : 414 ms P-R-T Axes : 69 32 38 degrees QTcB Int : 462 ms Sinus rhythm with Premature atrial complexes Otherwise normal ECG Confirmed by Kwesi Irving ([id number]), field map editor ISRAEL RODARTE ([id number]) on 09/17/2024 6:58:03 AM Referred By: Confirmed By: Kwesi Irving
[2024-09-15 16:27] LABS: Anion Gap 16 (5-15); BUN 68 mg/dL (7-18); BUN/Creat Ratio 28.6 RATIO (10-20); Calcium,Total 10.1 mg/dL (8.5-10.1); Chloride 108 mmol/L (98-107); Creatinine, Serum 2.38 mg/dL (0.55-1.02); EST Glomerular Filtration Rate 21 mL/min (>60); Est Glom Filt Rate - Afr Amer 26 mL/min (>60); Estimated Creatinine Clearance 26.36 ml/min; Glucose 212 mg/dL (74-106); Potassium 5.3 mmol/L (3.5-5.1); Sodium Level 138 mmol/L (136-145); Troponin-I HS (w/2H Reflex) 21 pg/mL (3.0-54.0)
[2024-09-15 17:02] LABS: Lymphocyte 7 % (19-41); Metamyelocyte 1 % (0-1); Monocyte 6 % (0-10); Myelocyte 2 % (0-0); Neutrophil-Band 2 % (0-5); Neutrophil-Segmented 82 % (47-70); Total Cells Counted 100 (MANUAL DIFF)
[2024-09-15 17:05] LABS: Absolute Lymphocyte Count 1.78 X10^3/uL (0.83-4.51); Absolute Neutrophil Count 21.3 X10^3/uL (2.0-7.7); Platelet Estimate SLT DEC (ADEQ)
[2024-09-15 17:06] LABS: Anisocytosis RARE; Macrocytosis RARE; Ovalocyte RARE; Red Cell Morphology N CHROM NORMAL (NORM C&C)
[2024-09-15 17:10] LABS: Mucous, Urine 0 SEEN /hpf (<or=2+)
[2024-09-15 17:20] LABS: Color, Urine Amber (Yellow); Glucose, Dipstick Normal (Normal); Ketone-Dipstick Negative (Negative); Leukocyte Esterase-Dipstick 25 /ul (Negative); Nitrite-Dipstick Negative (Negative); Occult Blood-Urine 10 /ul (Negative); Protein-Dipstick 100 mg/dl (Negative); Specific Gravity, Urine 1.025 (1.002-1.030); Urine Clarity Sl. Cloudy (Clear); Urine Urobilinogen 1 mg/dl (Normal)
[2024-09-15 17:28] LABS: Urine Bilirubin Dipstick 3 mg/dL (Negative)
[2024-09-15 17:31] LABS: Squamous Epithelial Cells - UA 0-5 SEEN /hpf (5-10)
[2024-09-15 17:32] LABS: Bacteria 2+ /hpf (None Seen)
[2024-09-15 17:33] LABS: Amorphous Sediment 1+ URATE; Red Blood Cells-Urine 0-5 SEEN /hpf (0-5); White Blood Cells 0-5 SEEN /hpf (0-5)
[2024-09-15 17:34] LABS: Hyaline Cast 0-5 SEEN /lpf (0-5)
--- NOTE | 2024-09-15 17:38 | CT_ITS ---
EXAM: CT CHEST, ABDOMEN AND PELVIS WITHOUT INTRAVENOUS CONTRAST CLINICAL INDICATION: elevated WBC count, sepsis no source TECHNIQUE: Helically acquired images were obtained of the chest, abdomen and pelvis without intravenous contrast. This CT exam was performed using one or more of the following dose reduction techniques: automated exposure control, adjustment of the mA and/or kV according to patient size, and/or use of iterative reconstruction technique. COMPARISON: No relevant prior studies available. FINDINGS: CHEST: LUNGS AND PLEURAL SPACES: There are multiple noncalcified nodules throughout both lungs compatible with metastatic disease. There is no focal consolidation. No pleural effusion or thickening. No pneumothorax. HEART: Unremarkable. Heart size is normal. No pericardial effusion. No significant coronary artery calcifications. MEDIASTINUM: Unremarkable. No mediastinal or hilar adenopathy. Esophagus is unremarkable. No hiatal hernia. THYROID: Unremarkable. No thyroid lesions. ABDOMEN: LIVER: There are multiple low-density masses seen throughout the liver compatible with extensive metastatic disease. GALLBLADDER AND BILE DUCTS: Unremarkable. No calcified gallstones. No gallbladder distention or wall edema. No intra- or extrahepatic biliary ductal dilation. PANCREAS: Unremarkable. No focal cystic mass. SPLEEN: Unremarkable. Normal size without focal cystic or solid mass. ADRENALS: Unremarkable. No nodules. KIDNEYS AND URETERS: Unremarkable. Normal renal size and position. No hydronephrosis. STOMACH AND BOWEL: There is a linear metallic structure within this stomach that measures 1.8 cm of uncertain etiology. There is residual barium within the colon. No stomach or bowel distention. No focal inflammatory change. PELVIS: APPENDIX: No evidence of acute appendicitis. BLADDER: Unremarkable. REPRODUCTIVE: Unremarkable as visualized. No mass. CHEST, ABDOMEN and PELVIS: INTRAPERITONEAL SPACE: Unremarkable. No ascites or other fluid collection. No free air. BONES/JOINTS: Unremarkable. No suspicious lytic or blastic abnormality. SOFT TISSUES: There is a large maribel mass in the left inguinal region that measures 5.0 x 7.5 cm. No discrete abdominal or pelvic wall hernia. VASCULATURE: Unremarkable. Aorta is non-dilated. LYMPH NODES: There is extensive retroperitoneal adenopathy with the largest node measuring 3.7 x 3.5 cm. Adenopathy extends down into the left iliac region with an 8.7 x 2.6 cm maribel mass present. CT/CT Chest, Abd, Pelvis WO Cont IMPRESSION: 1. Multiple noncalcified nodules seen throughout the lungs compatible with metastatic disease. There is no focal consolidation. 2. Multiple low-density masses seen throughout the liver compatible with extensive metastatic disease. 3. Extensive adenopathy in the retroperitoneum as well as in the left iliac and inguinal chains which may be due to metastatic disease or possibly lymphoma. If indicated further evaluation with PET CT scan may be beneficial. Electronically Signed: Isaac Vinson MD at 19:01 EST ,
[2024-09-15 17:39] LABS: Lactic Acid 6.7 mmol/L (0.4-1.9)
[2024-09-15 17:57] LABS: Reflex Troponin-HS? (from REC) Y
[2024-09-15 18:19] LABS: Troponin-I HS 26 pg/mL (3.0-54.0)
[2024-09-15] MEDS: 0.9% Normal Saline (1000mL) 1,000 ML 999 ML IV ×2 (18:27→22:35)
[2024-09-15] MEDS: Piperacil/Tazobactam 3.375 GM in 0.9% Normal Saline (50mL MB+) 50 ML IV (18:27)
[2024-09-15] MEDS: Vancomycin HCl 1,500 MG in 0.9% Normal Saline (500mL Bag) 500 ML 250 MG IV (18:28)
--- NOTE | 2024-09-15 19:46 | PCM.HP.STD ---
[facility] Date of Admission: 09/15/24 Date of Service: 09/15/24 Chief Complaint: Palpitations and Tachycardia. HPI Narrative CLAUDIA GRADY, is a 74 F with a past medical history of essential hypertension; previously on metoprolol, hyperlipidemia; on atorvastatin, overweight; with BMI of 28.2 this admission, DM-2; of unknown control, history of microalbuminuria due to DM-2, essential tremor, depression; on sertraline, history of nephrolithiasis, history of vaginal hysterectomy, history of plantar fasciitis surgery, history of colonoscopy, GERD with history of PUD; on pantoprazole and sucralfate, OA; with history of Left TKR, history of melanoma; s/p removal, history of bullous pemphigoid after immunotherapy; on prednisone and topical clobetasol, history of Melanoma on her Left leg; s/p resection; previously followed by Dr. Guadarrama of [facility] and recent admission here from September 10, 2024 to September 14, 2024 for an initial chief complaint of generalized weakness with laboratory evidence of severe leukocytosis of 24.8K with Lactic Acidosis of 2.5 mmol/L present on that admission and FUENTES with serum creatinine of 2.13 mg/dL with BUN of 70 mg/dL suspected to be due to dehydration in combination with poor appetite complicated by a flare of her Bullous Pemphigoid who was transferred to TCU for rehabilitation who was then urgently sent to the ER with complaints of palpitations and tachycardia. Ms. Horton stated that she can feel her heart racing but she is unsure of the exact time that it started. The patient was also noted to be slightly confused by the ER physician with patient unable to name, place or time but was still oriented to person. ER physician notes patient was initially tachycardic at ~176 bpm and was slightly tachypneic at 22 breaths/min and hypertensive with a blood pressure of 165/144 mmHg with EKG positive for evidence of Atrial Fibrillation with Rapid Ventricular Response with previous records having no mention of atrial fibrillation in the past. She was then treated with metoprolol 5 mg x 2 with conversion back to normal sinus rhythm but with a 100 point systolic blood pressure drop for which she was treated with 500 cc bolus of IV fluid. However, a review of her most recent laboratory studies showed severe Leukocytosis of 25.4K with Lactic Acidosis of 6.7 mmol/L present on admission suggestive of Sepsis along with elevated serum creatinine of 2.38 mg/dL and Hyperkalemia of 5.3 mmol/L present on this admission indicating recurrent FUENTES with clinical evidence of Metabolic Encephalopathy and an unremarkable UA therefore a CT scan of the abdomen pelvis was done which unfortunately revealed multiple noncalcified nodules seen throughout the lungs compatible with metastatic disease with no focal consolidation along with multiple low-density masses seen throughout the liver compatible with extensive metastatic disease along with extensive adenopathy in the retroperitoneum as well as in the Left iliac and inguinal change which may be due to metastatic disease or possibly lymphoma with further evaluation with PET/CT recommended by radiologist with a review of her limited records here showing only previous chest x-ray for comparison. She was then admitted to the ICU for treatment under the Sepsis protocol for stay that is expected to extend beyond 2 midnights. [facility] Medical History Tremor Obesity (BMI 35.0-39.9 without comorbidity) Primary osteoarthritis of both knees Postmenopausal disorder Microalbuminuria due to type 2 diabetes mellitus Hypercholesterolemia History of nephrolithiasis History of hypertension history of dyslipidemia Hypertension Diabetes Home Medications ?Medication ?Instructions ?Recorded ?Last Taken ?Type atorvastatin 10 mg tablet 10 mg PO QHS cholesterol 18 09/13/24 History blood sugar diagnostic #10 ea 11/29/19 Unknown History lancets 33 gauge #100 ea 11/29/19 Unknown History calcium 1,000 mg (as 1 tab PO DAILY osteoporosis 09/10/24 Unknown History carbonate)-vitamin D3 20 mcg (800 unit) tablet cholecalciferol (vitamin D3) 50 50 mcg PO DAILY supplement 09/10/24 Unknown History mcg (2,000 unit) tablet (Vitamin D3) clobetasol 0.05 % topical ointment 1 applic topical BID affected areas 09/10/24 09/14/24 History doxycycline monohydrate 100 mg 100 mg PO BID antibiotic 09/10/24 09/13/24 History capsule ondansetron 8 mg disintegrating 8 mg PO Q8H PRN PRN nausea/vomiting 09/10/24 Unknown History tablet prednisone 10 mg tablet 10 mg PO DAILY RASH 09/10/24 Unknown History sertraline 50 mg tablet 50 mg PO QHS depressive disorder 09/10/24 Unknown History sulfamethoxazole 800 1 tab PO .COMPLEX infection 09/10/24 09/12/24 History mg-trimethoprim 160 mg tablet melatonin 3 mg tablet 3 mg PO QHS PRN PRN Insomnia #0 09/14/24 Unknown Rx tabs menthol 0.44 %-zinc oxide 20.6 % 1 applic topical BID affected 09/14/24 09/14/24 Rx topical ointment (Calmoseptine) areas #0 grams nystatin 100,000 unit/gram topical 1 applic topical BID moisture in 09/14/24 09/14/24 Rx powder (Nyamyc) folds #0 grams pantoprazole 40 mg tablet,delayed 40 mg PO BID GERD #1 TAB 09/14/24 Unknown Rx release (Protonix) sucralfate 1 gram tablet (Carafate) 1 g PO 4X/DAY antacid #1 TAB 09/14/24 Unknown Rx Allergy/AdvReac Type Severity Reaction Status Date / Time adhesive tape Allergy Rash Verified 09/15/24 15:23 aspirin AdvReac Upset Verified 09/15/24 15:23 Stomach Family History Father , @ 75 Lung cancer Mother Colon cancer Heart disease CVA (cerebral vascular accident) Sudden cardiac Sister , at 60 Cancer Sister , at 45 Cancer of kidney Surgical History History of left knee replacement History of vaginal hysterectomy History of tonsillectomy History of colonoscopy h/o plantar fascitis surgery Social History household members: spouse Smoking Status: Never smoker alcohol intake: current details: Social substance use type: does not use what type of physical activity do you participate in: walking ROS ROS Narrative Full ROS was not possible due to patient's acute illness and resultant encephalopathy. Vital Signs Vital Signs Vital Signs: 09/15/24 15:17 09/15/24 15:18 09/15/24 15:24 Temperature 98 F Temperature Source Axillary Pulse Rate 172 H 176 H Respiratory Rate 22 H Respiratory Effort Normal Blood Pressure 165/144 H Blood Pressure Mean 151 Pulse Ox 98 98 Oxygen Delivery Method Nasal Cannula Room Air Oxygen Flow Rate (L/min) 2 09/15/24 15:50 09/15/24 16:10 09/15/24 16:19 Temperature Temperature Source Pulse Rate 128 H 71 Respiratory Rate 21 H 21 H Respiratory Effort Blood Pressure 102/80 120/66 Blood Pressure Mean 87 84 Pulse Ox 100 100 Oxygen Delivery Method Nasal Cannula Nasal Cannula Nasal Cannula Oxygen Flow Rate (L/min) 2 2 2 09/15/24 17:18 09/15/24 17:22 09/15/24 17:30 Temperature Temperature Source Pulse Rate 80 81 79 Respiratory Rate 14 20 H 21 H Respiratory Effort Blood Pressure 141/78 H 155/70 H Blood Pressure Mean 99 91 Pulse Ox 100 Oxygen Delivery Method Room Air Oxygen Flow Rate (L/min) 09/15/24 17:45 09/15/24 17:58 09/15/24 18:00 Temperature 98.5 F Temperature Source Axillary Pulse Rate 78 83 Respiratory Rate 20 H 19 H Respiratory Effort Blood Pressure 140/76 H 137/89 H 137/89 H Blood Pressure Mean 93 105 100 Pulse Ox 94 97 Oxygen Delivery Method Room Air Oxygen Flow Rate (L/min) 09/15/24 18:15 09/15/24 18:19 09/15/24 18:30 Temperature Temperature Source Pulse Rate 73 78 Respiratory Rate 16 18 Respiratory Effort Blood Pressure 135/63 H 153/70 H Blood Pressure Mean 80 91 Pulse Ox 98 Oxygen Delivery Method Oxygen Flow Rate (L/min) 09/15/24 18:45 09/15/24 19:00 Temperature Temperature Source Pulse Rate 74 74 Respiratory Rate 18 18 Respiratory Effort Blood Pressure 147/74 H 143/63 H Blood Pressure Mean 93 84 Pulse Ox Oxygen Delivery Method Oxygen Flow Rate (L/min) Weight Weight: 203 lb 0.732 oz Body Mass Index (BMI) 28.3 Physical Exam Const alert and no apparent distress Constitutional Narrative: Patient is confused and appears chronically ill. General Appearance: cooperative Orientation / Consciousness: confused HEENT normocephalic, head/scalp atraumatic, hearing grossly normal bilaterally and moist oral mucous membranes Eyes PERRL and EOMs intact bilaterally Neck no lymphadenopathy and supple Resp normal respiratory effort, no retractions, no use of accessory muscles and clear to auscultation bilaterally Cardio Cardio Narrative: Irregularly irregular. GI normal to inspection, nondistended, normoactive bowel sounds, soft to palpation, non-tender and non-distended Extremity no clubbing, cyanosis or edema Skin Skin Narrative: Patient has numerous lesions on skin consistent with different stages of healing of bullous pemphigoid with no acute abscess or jaundice noted. Neuro CN's II-XII intact bilaterally, moves all extremities and no focal motor deficits Sensorium / Orientation: awake, alert, oriented to person and oriented to place Speech: speech normal Psych affect normal Results Medical Records Data Attestation: I reviewed the patient's medical records Lab / Micro Data Attestation: I reviewed the patient's lab results. 09/15/24 15:38 09/15/24 15:38 Labs: Laboratory Results - last 24 hr 09/15/24 15:38: WBC 25.4 H, RBC 4.28, Hgb 12.5, Hct 39.3, MCV 91.8, MCH 29.2, MCHC 31.8 L, RDW Std Deviation 48.6 H, RDW Coeff of Natali 14.8 H, Plt Count 92 L, MPV 10.5, Neut % (Auto) Not Reportable, Absolute Neuts (auto) 21.3 H, Absolute Lymphs (auto) 1.78, Total Counted 100, Neutrophils % (Manual) 82 H, Band Neutrophils % 2, Lymphocytes % (Manual) 7 L, Monocytes % (Manual) 6, Metamyelocytes % 1, Myelocytes % 2 H, Diff Path Review May , Platelet Estimate SLT DEC, RBC Morphology N CHROM, Anisocytosis RARE, Macrocytosis RARE, Ovalocytes RARE, Sodium 138, Potassium 5.3 H, Chloride 108 H, Carbon Dioxide 14.0 L, Anion Gap 16 H, BUN 68 H, Creatinine 2.38 H, Estim Creat Clear Calc 26.36, Est GFR (MDRD) Af Amer 26 L, Est GFR (MDRD) Non-Af 21 L, BUN/Creatinine Ratio 28.6 H, Glucose 212 H, Calcium 10.1, Troponin I High Sens 21, Urine Color Freida, Urine Clarity Sl. Cloudy, Urine pH 5.0, Ur Specific [place] 1.025, Urine Protein 100 H, Urine Glucose (UA) Normal, Urine Ketones Negative, Urine Occult Blood 10 H, Urine Nitrite Negative, Urine Bilirubin 3 H, Urine Urobilinogen 1 H, Ur Leukocyte Esterase 25 H, Urine RBC 0-5 SEEN, Urine WBC 0-5 SEEN, Ur Squamous Epith Cells 0-5 SEEN, Amorphous Sediment 1+ URATE, Urine Bacteria 2+, Hyaline Casts 0-5 SEEN, Urine Mucus 0 SEEN 09/15/24 16:54: Lactic Acid 6.7 H* 09/15/24 17:38: Troponin I High Sens 26 Imaging Radiology Impression Chest X-Ray 09/15/24 16:15 IMPRESSION: No radiographic evidence of acute cardiopulmonary disease. Electronically Signed: Isaac Vinson MD at 17:04 EST , Chest/Abdomen/Pelvis CT 09/15/24 17:38 IMPRESSION: 1. Multiple noncalcified nodules seen throughout the lungs compatible with metastatic disease. There is no focal consolidation. 2. Multiple low-density masses seen throughout the liver compatible with extensive metastatic disease. 3. Extensive adenopathy in the retroperitoneum as well as in the left iliac and inguinal chains which may be due to metastatic disease or possibly lymphoma. If indicated further evaluation with PET CT scan may be beneficial. Electronically Signed: Isaac Vinson MD at 19:01 EST , Assessment & Plan Assessment/Plan (1) Sepsis: QUALIFIERS: Acute renal failure type: unspecified Sepsis acute organ dysfunction status: with acute organ dysfunction Sepsis type: sepsis due to unspecified organism Severe sepsis acute organ dysfunction type: acute renal failure Severe sepsis shock status: without septic shock Qualified Code(s): A41.9 - Sepsis, unspecified organism; R65.20 - Severe sepsis without septic shock; N17.9 - Acute kidney failure, unspecified (2) Lactic acidosis: (3) Metastatic cancer: QUALIFIERS: Area of secondary neoplastic involvement: unspecified site Qualified Code(s): C79.9 - Secondary malignant neoplasm of unspecified site (4) History of melanoma: (5) Atrial fibrillation with RVR: (6) Acute metabolic encephalopathy: (7) Drug-induced bullous pemphigoid: (8) Generalized weakness: (9) Ambulatory dysfunction: (10) Overweight (BMI 25.0-29.9): PLAN: Plan 1. Leukocytosis of 25.4K with Lactic Acidosis of 6.7 mmol/L present on admission suggestive of Sepsis with CT scan this admission suspicious for Metastatic Disease due to Lymphoma in the setting of a known previous history of cancer with Melanoma on her Left leg; s/p resection followed by Dr. Guadarrama of [facility] oncology - Admit to ICU for treatment under the Sepsis protocol. Continue IV Zosyn and start IV Linezolid (given FUENTES to avoid vancomycin renal impairment) begun in the ER and await culture and sensitivity data. Give Tylenol prn for [id number] (level 1-5/10) pain or fever. Give Morphine IV prn for severe (level 6-10/10) pain. Finally, we will consult the [facility] oncology group to see this patient on-rounds in the AM for further recommendations with help appreciated in advance. 2. Elevated serum creatinine of 2.38 mg/dL and Hyperkalemia of 5.3 mmol/L present on this admission indicating recurrent FUENTES complicating #1 - Volume resuscitate and then recheck renal indices in AM to ensure improvement. 3. New-onset Atrial Fibrillation with RVR; likely paroxysmal in nature due to #1 & #2 - Patient back in NSR after two 5 mg doses of IV metoprolol in ER. Restart lowest-dose oral metoprolol to minimize risk of recurrence. Check echocardiogram to evaluate LVEF. Serialize troponin. Cut Lovenox to full renally-adjusted dose. 4. Acute Metabolic Encephalopathy arising from #1 - #3 - Continue supportive care as outlined above and monitor for improvement. 5. History of bullous pemphigoid after immunotherapy; on prednisone and topical clobetasol and recent admission here from September 10, 2024 to September 14, 2024 for an initial chief complaint of generalized weakness with laboratory evidence of severe leukocytosis of 24.8K with Lactic Acidosis of 2.5 mmol/L present on that admission and FUENTES with serum creatinine of 2.13 mg/dL with BUN of 70 mg/dL suspected to be due to dehydration in combination with poor appetite complicated by a flare of her Bullous Pemphigoid who was transferred to TCU for rehabilitation due to residual persistent Generalized Weakness with Ambulatory Dysfunction who was then urgently sent to the ER with complaints of palpitations and tachycardia compounding #1 - #4 - Noted with only CXR done on previous admission that did not reveal masses evident on CT. 6. History of essential hypertension; previously on metoprolol - This agent was restarted at lowest dose for #3. 7. Hyperlipidemia; on atorvastatin - Continue atorvastatin as previous. 8. Overweight; with BMI of 28.2 this admission - Weight loss will be recommended. Check TSH for this and in light of #3. This complicates her case and may hamper recovery. 9. DM-2; of unknown control - ADA/cardiac diet. FSBS q. AC/HS plus lowest-intensity SSI. Check HgbA1c to objectively assess quality of diabetic control. 10. History of microalbuminuria due to DM-2 - Noted. 11. History of essential tremor - Noted with patient not currently on pharmacologic treatment and no tremor noted at time of examination. 12. Depression; on sertraline - Maintain current treatment. 13. History of nephrolithiasis - Noted with no current signs of recurrence. 14. History of vaginal hysterectomy - Noted. 15. History of plantar fasciitis surgery - Noted. 16. History of colonoscopy - Noted. 17. GERD with history of PUD; on pantoprazole and sucralfate - Continue pantoprazole and sucralfate as previous. 18. OA; with history of Left TKR - Noted. 19. DVT prophylaxis - Patient on full-dose Lovenox appropriate for currently impaired level of renal function for #3. Total time: Approximately (but not less than) 75 minutes. Sepsis Attestation Sepsis Alert: Yes Sepsis Attestation: Agree w/Sepsis Date exam was performed: 09/15/24 Time exam was performed: 20:00 Possible Source of Sepsis: Other Sepsis Organ Dysfunction Criteria Present: Creatinine > 2.0 mg/dL, Lactic Acid > 2 mmol/L and New/Unexplained change in mental status Fluid Resuscitation Fluid resuscitation indicated?: Yes Fluid Resuscitation ordered: 30 ml/kg fluid bolus ordered Amount of fluid ordered: 2 Sepsis Note Date exam was performed: 09/16/24 Time exam was performed: 23:50 Sepsis Attestation: Sepsis re-evaluation was performed Response to fluids: Fluid responsive hypotension
--- NOTE | 2024-09-15 20:13 | ED.RN ---
The patient has 3 ivs total, however only one draws back blood and was used for one set of cultures. Pt had to have an Ultrasound for IV placement and is a difficult stick. This RN notified Dr Flores regarding the patients difficult stick and he agreed one set of cultures were appropriate since she had them done a few days ago here.
[2024-09-15 20:52] LABS: CPK Total, Creatine Kinase 106 U/L (26-192)
[2024-09-15 21:00] LABS: Reflex Lactate? Y
[2024-09-15 21:23] LABS: Hemoglobin A1c 6.9 % (3.8-5.6)
[2024-09-15] MEDS: Pantoprazole Sodium 40 MG in 0.9% Normal Saline (100mL MB+) 100 ML 330 MG IV (21:58)
[2024-09-15] MEDS: Enoxaparin 100 MG/ML Syringe 90 MG SC (22:00)
[2024-09-15] MEDS: Sucralfate 1 GM Tablet PO (22:03)
[2024-09-15] MEDS: Lactobacillis Acidophilus 1 CAP PO (22:03)
[2024-09-15] MEDS: Nystatin Powder 15gm Bottle 1 APPLIC TOPICAL (22:04)
[2024-09-15] MEDS: Clobetasol Propionate 0.05% Ointment 1 APPLIC TOPICAL (22:04)
[2024-09-15] MEDS: Menthol/Lanolin/Calamine/Znox 113 GM Tube 1 APPLIC TOPICAL (22:04)
[2024-09-15] MEDS: Linezolid 600 MG 600 MG/300 ML BAG 200 MG IV (22:05)
[2024-09-15 22:07] LABS: Lactic Acid 3.7 mmol/L (0.4-1.9); Vitamin B12 > 2000 pg/mL (211-911)
--- NOTE | 2024-09-15 23:42 | NURSING ---
This RN called over to TCU to ask for patient belongings. They have not had a chance to get her belongings together but will send them over when they are able.
[2024-09-16] VITALS (14 sets, daily range): BP systolic 126–162; BP diastolic 55–95; PULSE 74–103; RESP 14–23; TEMP 35.9–36.6; O2SAT 94–100; BMI 27.7
[2024-09-16 01:31] LABS: Reflex Lactate? Y
[2024-09-16] MEDS: Piperacil/Tazobactam 3.375 GM in 0.9% Normal Saline (50mL MB+) 50 ML IV ×3 (05:34→21:23)
[2024-09-16] MEDS: Pantoprazole Sodium 40 MG in 0.9% Normal Saline (100mL MB+) 100 ML 330 MG IV ×2 (09:34→20:22)
[2024-09-16] MEDS: Metoprolol Tartrate 25 MG Tablet 12.5 MG PO (09:35)
[2024-09-16] MEDS: Cholecalciferol (VIT D3) 25 MCG TABLET (1,000 UNITS) 50 MCG PO (09:36)
[2024-09-16] MEDS: Calcium Carb/Vitamin D 1 TABLET Tablet PO (09:36)
[2024-09-16] MEDS: Lactobacillis Acidophilus 1 CAP PO (09:37)
[2024-09-16] MEDS: Ascorbic Acid 500 MG Tablet 1000 MG PO (09:37)
[2024-09-16] MEDS: Zinc Sulfate 50 mg zinc (220 mg) ORAL capsule PO (09:37)
[2024-09-16] MEDS: Menthol/Lanolin/Calamine/Znox 113 GM Tube 1 APPLIC TOPICAL ×2 (09:38→20:20)
[2024-09-16] MEDS: Nystatin Powder 15gm Bottle 1 APPLIC TOPICAL ×2 (09:38→20:20)
[2024-09-16] MEDS: Clobetasol Propionate 0.05% Ointment 1 APPLIC TOPICAL ×2 (09:39→20:20)
[2024-09-16] MEDS: Linezolid 600 MG 600 MG/300 ML BAG 200 MG IV (10:14)
[2024-09-16] MEDS: 0.9% Normal Saline (1000mL) 1,000 ML 100 ML IV ×2 (13:15→21:24)
--- NOTE | 2024-09-16 14:12 | PCMCONS.TICU ---
HPI Consult Data Date of Consult: 09/16/24 HPI Narrative HPI Narrative: CLAUDIA GRADY, is a 74 F who presents [facility] Medical History Tremor Obesity (BMI 35.0-39.9 without comorbidity) Primary osteoarthritis of both knees Postmenopausal disorder Microalbuminuria due to type 2 diabetes mellitus Hypercholesterolemia History of nephrolithiasis History of hypertension history of dyslipidemia Hypertension Diabetes Home Medications ?Medication ?Instructions ?Recorded ?Last Taken ?Type atorvastatin 10 mg tablet 10 mg PO QHS cholesterol 03/25/18 09/13/24 History blood sugar diagnostic #10 ea 11/29/19 Unknown History lancets 33 gauge #100 ea 11/29/19 Unknown History calcium 1,000 mg (as 1 tab PO DAILY osteoporosis 09/10/24 Unknown History carbonate)-vitamin D3 20 mcg (800 unit) tablet cholecalciferol (vitamin D3) 50 50 mcg PO DAILY supplement 09/10/24 Unknown History mcg (2,000 unit) tablet (Vitamin D3) clobetasol 0.05 % topical ointment 1 applic topical BID affected areas 09/10/24 09/14/24 History doxycycline monohydrate 100 mg 100 mg PO BID antibiotic 09/10/24 09/13/24 History capsule ondansetron 8 mg disintegrating 8 mg PO Q8H PRN PRN nausea/vomiting 09/10/24 Unknown History tablet prednisone 10 mg tablet 10 mg PO DAILY RASH 09/10/24 Unknown History sertraline 50 mg tablet 50 mg PO QHS depressive disorder 09/10/24 Unknown History sulfamethoxazole 800 1 tab PO .COMPLEX infection 09/10/24 09/12/24 History mg-trimethoprim 160 mg tablet melatonin 3 mg tablet 3 mg PO QHS PRN PRN Insomnia #0 09/14/24 Unknown Rx tabs menthol 0.44 %-zinc oxide 20.6 % 1 applic topical BID affected 09/14/24 09/14/24 Rx topical ointment (Calmoseptine) areas #0 grams nystatin 100,000 unit/gram topical 1 applic topical BID moisture in 09/14/24 09/14/24 Rx powder (Nyamyc) folds #0 grams pantoprazole 40 mg tablet,delayed 40 mg PO BID GERD #1 TAB 09/14/24 Unknown Rx release (Protonix) sucralfate 1 gram tablet (Carafate) 1 g PO 4X/DAY antacid #1 TAB 09/14/24 Unknown Rx Allergy/AdvReac Type Severity Reaction Status Date / Time adhesive tape Allergy Rash Verified 09/15/24 15:23 aspirin AdvReac Upset Verified 09/15/24 15:23 Stomach Family History Father , @ 75 Lung cancer Mother Colon cancer Heart disease CVA (cerebral vascular accident) Sudden cardiac Sister , at 60 Cancer Sister , at 45 Cancer of kidney Surgical History History of left knee replacement History of vaginal hysterectomy History of tonsillectomy History of colonoscopy h/o plantar fascitis surgery Social History household members: spouse Smoking Status: Never smoker alcohol intake: current details: Social substance use type: does not use what type of physical activity do you participate in: walking Objective Data Objective Data Vital Signs: Vital Signs Last response Temperature 36.5 C L 09/16/24 12:00 Temperature Source Temporal 09/16/24 12:00 Pulse Rate 90 09/16/24 12:00 Respiratory Rate 18 09/16/24 12:00 Respiratory Effort Normal, Non-Labored 09/16/24 10:00 Respiratory Depth Normal 09/16/24 10:00 Respiratory Pattern Normal 09/16/24 10:00 Blood Pressure 141/85 H 09/16/24 12:00 Blood Pressure Mean 103 09/16/24 12:00 Blood Pressure Source Monitor 09/16/24 12:00 Blood Pressure Position Semi-Fowlers 09/16/24 12:00 Blood Pressure Location Right Arm 09/16/24 12:00 Pulse Ox 98 09/16/24 12:00 Oxygen Delivery Method Room Air 09/16/24 12:00 Oxygen Flow Rate (L/min) 2 09/15/24 16:19 I&O: I&O Last 24 Hours 09/15/24 09/16/24 09/16/24 23:59 11:59 23:59 Intake Total 3490 / 3490 535 / 535 Output Total 300 / 450 150 / 450 Balance 3490 / 3490 235 / 85 -150 / 85 I&O: Total Stay 09/15/24 15:17 thru 09/16/24 12:00 Intake Total 4025 Output Total 450 Balance 3575 Current Meds Ordered / Administered: Current meds ordered / Administered Generic Name Dose Route Start Last Admin Trade Name Freq PRN Reason Stop Dose Admin Ascorbic Acid 1,000 mg 09/16/24 08:00 09/16/24 09:37 Ascorbic Acid 500 Mg Tablet PO 1,000 mg BIDCM MERON Administration Calamine/Phenol 1 applic 09/15/24 22:00 09/16/24 09:38 Menthol/Lanolin/Calamine/Znox 113 Gm Tube TOPICAL 1 applic BID MERON Administration Protocol Calcium/Vitamin D 1 tablet 09/16/24 08:00 09/16/24 09:36 Calcium Carb/Vitamin D 1 Tablet Tablet PO 1 tablet DAILYCM MERON Administration Cholecalciferol 50 mcg 09/16/24 10:00 09/16/24 09:36 Cholecalciferol (Vit D3) 25 Mcg Tablet (1,000 Units) PO 50 mcg DAILY MERON Administration Clobetasol Propionate 1 applic 09/15/24 22:00 09/16/24 09:39 Clobetasol Propionate 0.05% Ointment TOPICAL 1 applic BID MERON Administration Protocol Enoxaparin Sodium 90 mg 09/15/24 21:06 09/15/24 22:00 Enoxaparin 100 Mg/Ml Syringe SC 90 mg DAILY@2200 MERON Administration Piperacillin Sod/Tazobactam 50 mls @ 12.5 mls/hr 09/16/24 06:00 09/16/24 13:15 Sod 3.375 gm/ Sodium Chloride IV 12.5 mls/hr Q8 MERON Administration Pantoprazole Sodium 40 mg/ 110 mls @ 330 mls/hr 09/15/24 21:06 09/16/24 10:00 Sodium Chloride IV Infused DAILY MERON Infusion Sodium Chloride 500 mls @ 15 mls/hr 09/15/24 21:13 IV .[id number] PRN Saline Flush Sodium Chloride 500 mls @ 15 mls/hr 09/15/24 21:13 IV .[id number] PRN Additional IVPB Infusion Sodium Chloride 1,000 mls @ 100 mls/hr 09/16/24 12:45 09/16/24 13:15 IV 09/17/24 18:44 100 mls/hr .Q10H MERON Administration Protocol Melatonin 3 mg 09/15/24 21:06 Melatonin 3 Mg Tablet PO QHS PRN PRN Insomnia Metoprolol Tartrate 12.5 mg 09/16/24 10:00 09/16/24 09:35 Metoprolol Tartrate 25 Mg Tablet PO 12.5 mg BID [facility] Administration Protocol Nystatin 1 applic 09/15/24 22:00 09/16/24 09:38 Nystatin Powder 15gm Bottle TOPICAL 1 applic BID [facility] Administration Protocol Sodium Chloride 10 - 40 ml 09/15/24 21:13 0.9% Saline Lock 10 Ml Syringe IV UD PRN SALINE FLUSH Sucralfate 1 gm 09/15/24 22:00 09/16/24 12:23 Sucralfate 1 Gm Tablet PO Not Given 1HR_ACHS MERON Trimethoprim/Sulfamethoxazole 1 tablet 09/17/24 08:00 Smz/Tmp Ds Tablet PO MoWeFr@0800 MERON Zinc Sulfate 50 mg 09/16/24 10:00 09/16/24 09:37 Zinc Sulfate 50 Mg Zinc (220 Mg) Oral Capsule PO 50 mg DAILY [facility] Administration Lab / Micro Data 09/15/24 15:38 09/15/24 15:38 Labs: Laboratory Results - last 24 hr 09/15/24 15:38: WBC 25.4 H, RBC 4.28, Hgb 12.5, Hct 39.3, MCV 91.8, MCH 29.2, MCHC 31.8 L, RDW Std Deviation 48.6 H, RDW Coeff of Natali 14.8 H, Plt Count 92 L, MPV 10.5, Neut % (Auto) Not Reportable, Absolute Neuts (auto) 21.3 H, Absolute Lymphs (auto) 1.78, Total Counted 100, Neutrophils % (Manual) 82 H, Band Neutrophils % 2, Lymphocytes % (Manual) 7 L, Monocytes % (Manual) 6, Metamyelocytes % 1, Myelocytes % 2 H, Diff Path Review May foll, Platelet Estimate SLT DEC, RBC Morphology N CHROM, Anisocytosis RARE, Macrocytosis RARE, Ovalocytes RARE, Sodium 138, Potassium 5.3 H, Chloride 108 H, Carbon Dioxide 14.0 L, Anion Gap 16 H, BUN 68 H, Creatinine 2.38 H, Estim Creat Clear Calc 26.36, Est GFR (MDRD) Af Amer 26 L, Est GFR (MDRD) Non-Af 21 L, BUN/Creatinine Ratio 28.6 H, Glucose 212 H, Hemoglobin A1c 6.9 H, Calcium 10.1, Troponin I High Sens 21, Urine Color [place], Urine Clarity Sl. Cloudy, Urine pH 5.0, Ur Specific [place] 1.025, Urine Protein 100 H, Urine Glucose (UA) Normal, Urine Ketones Negative, Urine Occult Blood 10 H, Urine Nitrite Negative, Urine Bilirubin 3 H, Urine Urobilinogen 1 H, Ur Leukocyte Esterase 25 H, Urine RBC 0-5 SEEN, Urine WBC 0-5 SEEN, Ur Squamous Epith Cells 0-5 SEEN, Amorphous Sediment 1+ URATE, Urine Bacteria 2+, Hyaline Casts 0-5 SEEN, Urine Mucus 0 SEEN 09/15/24 16:54: Lactic Acid 6.7 H* 09/15/24 17:38: Total Creatine Kinase 106, Troponin I High Sens 26, Folate 10.40, TSH 1.710 09/15/24 21:20: Lactic Acid 3.7 H*, Vitamin B12 > 2000 H Imaging Radiology Impression Chest X-Ray 09/15/24 16:15 IMPRESSION: No radiographic evidence of acute cardiopulmonary disease. Electronically Signed: Isaac Vinson MD at 17:04 EST , Chest/Abdomen/Pelvis CT 09/15/24 17:38 IMPRESSION: 1. Multiple noncalcified nodules seen throughout the lungs compatible with metastatic disease. There is no focal consolidation. 2. Multiple low-density masses seen throughout the liver compatible with extensive metastatic disease. 3. Extensive adenopathy in the retroperitoneum as well as in the left iliac and inguinal chains which may be due to metastatic disease or possibly lymphoma. If indicated further evaluation with PET CT scan may be beneficial. Electronically Signed: Isaac Vinson MD at 19:01 EST , Assessment and Plan . Assessment and plan: Critical Care Time: The entirety of this encounter was done via Telemedicine
--- NOTE | 2024-09-16 16:10 | PN.HOSP_ITS ---
Reason for Visit Reason for Visit: Diagnoses Sepsis, unspecified organism (09/15/24) Secondary malignant neoplasm of unspecified site (09/15/24) Overweight (09/15/24) Acidosis, unspecified (09/15/24) Metabolic encephalopathy (09/15/24) Unspecified atrial fibrillation (09/15/24) Bullous pemphigoid (09/15/24) Acute kidney failure, unspecified (09/15/24) Difficulty in walking, not elsewhere classified (09/15/24) Weakness (09/15/24) Severe sepsis without septic shock (09/15/24) Adverse effect of unspecified drugs, medicaments and biological substances, initial encounter (09/15/24) Personal history of malignant melanoma of skin (09/15/24) Subjective Subjective Patient was seen and examined today, I talked with the patient's who is in the room at the time my examination. Patient appears to be dehydrated with dry mucous membranes, she is also lethargic but does respond appropriately to questions. Patient was admitted yesterday for A-fib with RVR, she spontaneously converted with metoprolol in the emergency room. She had an elevated white blood cell count and during the workup and abdominal CT was ordered which showed metastatic disease to the liver, lungs, and lymphadenopathy in the retroperitoneal area and in the left groin area. Patient did have a history of melanoma that was removed in 2022, according to her oncologist records, patient had a negative PET scan earlier this year in February. Patient's melanoma was on her left foot, I strongly feel that the lymphadenopathy in the patient's left groin area is metastatic disease from her melanoma. Objective Data Objective Data Vital Signs: Vital Signs Temp Pulse Resp BP Pulse Ox O2 Del Method O2 Flow Rate 97.7 F L 90 18 141/85 H 98 Room Air 2 09/16/24 12:00 09/16/24 12:00 09/16/24 12:00 09/16/24 12:00 09/16/24 12:09/16/24 12:00 09/15/24 16:19 Oxygen Flow Rate (L/min) 2 Oxygen Delivery Method Room Air Weight: 90.2 kg Body Mass Index (BMI) 27.7 Intake & Output: Intake and Output for Last 24 Hours 12/06/24 12/07/24 12/08/24 23:59 23:59 23:59 Intake Total 3490 / 3490 535 / 535 Output Total 450 / 450 Balance 3490 / 3490 85 / 85 Lab / Micro Data 09/15/24 15:38 09/15/24 15:38 Labs: Laboratory Results - last 24 hr 09/15/24 15:38: Absolute Neuts (auto) 21.3 H, Absolute Lymphs (auto) 1.78, Total Counted 100, Neutrophils % (Manual) 82 H, Band Neutrophils % 2, Lymphocytes % (Manual) 7 L, Monocytes % (Manual) 6, Metamyelocytes % 1, Myelocytes % 2 H, Diff Path Review February, Platelet Estimate SLT DEC, RBC Morphology N CHROM, Anisocytosis RARE, Macrocytosis RARE, Ovalocytes RARE, Sodium 138, Potassium 5.3 H, Chloride 108 H, Carbon Dioxide 14.0 L, Anion Gap 16 H, BUN 68 H, Creatinine 2.38 H, Estim Creat Clear Calc 26.36, Est GFR (MDRD) Af Amer 26 L, Est GFR (MDRD) Non-Af 21 L, BUN/Creatinine Ratio 28.6 H, Glucose 212 H, Hemoglobin A1c 6.9 H, Calcium 10.1, Troponin I High Sens 21, Urine Color Fre[place], Urine Clarity Sl. Cloudy, Urine pH 5.0, Ur Specific [place] 1.025, Urine Protein 100 H, Urine Glucose (UA) Normal, Urine Ketones Negative, Urine Occult Blood 10 H, Urine Nitrite Negative, Urine Bilirubin 3 H, Urine Urobilinogen 1 H, Ur Leukocyte Esterase 25 H, Urine RBC 0-5 SEEN, Urine WBC 0-5 SEEN, Ur Squamous Epith Cells 0-5 SEEN, Amorphous Sediment 1+ URATE, Urine Bacteria 2+, Hyaline Casts 0-5 SEEN, Urine Mucus 0 SEEN 09/15/24 16:54: Lactic Acid 6.7 H* 09/15/24 17:38: Total Creatine Kinase 106, Troponin I High Sens 26, Folate 10.40, TSH 1.710 09/15/24 21:20: Lactic Acid 3.7 H*, Vitamin B12 > 2000 H Radiography Diagnostic Testing: Radiology Impression Chest X-Ray 09/15/24 16:15 IMPRESSION: No radiographic evidence of acute cardiopulmonary disease. Electronically Signed: Isaac Vinson MD at 17:04 EST , Chest/Abdomen/Pelvis CT 09/15/24 17:38 IMPRESSION: 1. Multiple noncalcified nodules seen throughout the lungs compatible with metastatic disease. There is no focal consolidation. 2. Multiple low-density masses seen throughout the liver compatible with extensive metastatic disease. 3. Extensive adenopathy in the retroperitoneum as well as in the left iliac and inguinal chains which may be due to metastatic disease or possibly lymphoma. If indicated further evaluation with PET CT scan may be beneficial. Electronically Signed: Isaac Vinson MD at 19:01 EST , Physical Exam Const alert and no apparent distress Constitutional Narrative: Patient appears frail and unwell General Appearance: cooperative, well kempt and well developed Orientation / Consciousness: awake, oriented to person and oriented to place HEENT normocephalic and head/scalp atraumatic Head and Scalp: normocephalic Mouth: dry mucous membranes Eyes PERRL, EOMs intact bilaterally and conjunctivae normal Neck supple, no JVD and thyroid normal General: trachea midline Resp normal respiratory effort, no retractions, no use of accessory muscles and clear to auscultation bilaterally Auscultation: Negative for rales, rhonchi or wheezes Cardio regular rate, regular rhythm, S1 normal heart sound, S2 normal heart sound, no murmurs, no rub and no gallops GI normal to inspection, nondistended, normoactive bowel sounds, soft to palpation, non-tender and non-distended Extremity no clubbing, cyanosis or edema Skin no rashes or lesions noted General Skin Exam: no breakdown Neuro oriented x3, CN's II-XII intact bilaterally, moves all extremities, no focal motor deficits and no sensory deficits noted Sensorium / Orientation: awake and alert Speech: speech normal Psych Psych Narrative: Patient is lethargic, she does respond appropriately to questions Assessment & Plan Assessment/Plan (1) Atrial fibrillation with RVR: PLAN: Plan 1. A-fib with RVR-converted to sinus rhythm, patient will remain on metoprolol, I do not feel the patient should be anticoagulated at this time due to upcoming biopsy of the patient's left inguinal lymph nodes and her recent diagnosis of gastric ulcer and erosive esophagitis. #2 acute cystitis-I have decided to take the patient off of Zyvox, she will remain on Zosyn #3 acute kidney injury-patient will be given IV fluids, labs will be monitored #4 evidence of metastatic disease from unknown primary-strongly suspect metastatic melanoma, general surgery will see the patient to perform a biopsy of the left inguinal nodes. Patient is currently under treatment with T?VEC which is a drug used to treat melanoma that has returned after surgery, it is a type of oncological virus therapy which is injected directly into tumors in the skin and lymph nodes. According to oncology, patient had been on Keytruda in the past. #5 generalized debility-patient will need to return to long-term if possible for rehab services #6 oropharyngeal dysphagia-etiology unclear, speech therapy is made the patient n.p.o. at this time, speech will follow #7 cognitive impairment-etiology unclear at this point, complicates care, management, recovery, and prognosis #8 recent gastric ulcer and erosive esophagitis-patient should not be put on anticoagulation at this point, continue PPI Total clinical time spent by myself addressing the patient's medical issues, reviewing all of her data, and collaborating with patient's care team: 50 minutes Charges/Coding Visit Charges Inpatient E&M: [id number] [place] [id number]
--- NOTE | 2024-09-16 19:25 | EX.PCM.CON.S ---
Assessment & Plan Assessment/Plan (1) History of melanoma: (2) Metastatic cancer: QUALIFIERS: Area of secondary neoplastic involvement: unspecified site Qualified Code(s): C79.9 - Secondary malignant neoplasm of unspecified site (3) Inguinal lymphadenopathy: PLAN: Plan Will plan to discuss possible left inguinal lymph node biopsy with the patient's tomorrow. If agreeable we will plan to do at bedside. Pat Jama M.D. Pager: [phone] [facility] [address] [place] [address], [facility], [address] [place] [id number] Office: [phone] HPI Consult Data Date of Consult: 09/16/24 HPI Narrative Reason for Consultation: Left inguinal node biopsy HPI Narrative: CLAUDIA GRADY, is a 74 F who is admitted history of melanoma in the left foot in [address] Guadarrama. Patient CT did note multiple metastatic lesions liver as well as retroperitoneal adenopathy as well as left groin adenopathy. Consult for possible biopsy of left groin lymph nodes. [facility] Medical History Tremor Obesity (BMI 35.0-39.9 without comorbidity) Primary osteoarthritis of both knees Postmenopausal disorder Microalbuminuria due to type 2 diabetes mellitus Hypercholesterolemia History of nephrolithiasis History of hypertension history of dyslipidemia Hypertension Diabetes Home Medications ?Medication ?Instructions ?Recorded ?Last Taken ?Type atorvastatin 10 mg tablet 10 mg PO QHS cholesterol 03/25/18 09/13/24 History blood sugar diagnostic #10 ea 11/29/19 Unknown History lancets 33 gauge #100 ea 11/29/19 Unknown History calcium 1,000 mg (as 1 tab PO DAILY osteoporosis 09/10/24 Unknown History carbonate)-vitamin D3 20 mcg (800 unit) tablet cholecalciferol (vitamin D3) 50 50 mcg PO DAILY supplement 09/10/24 Unknown History mcg (2,000 unit) tablet (Vitamin D3) clobetasol 0.05 % topical ointment 1 applic topical BID affected areas 09/10/24 09/14/24 History doxycycline monohydrate 100 mg 100 mg PO BID antibiotic 09/10/24 09/13/24 History capsule ondansetron 8 mg disintegrating 8 mg PO Q8H PRN PRN nausea/vomiting 09/10/24 Unknown History tablet prednisone 10 mg tablet 10 mg PO DAILY RASH 09/10/24 Unknown History sertraline 50 mg tablet 50 mg PO QHS depressive disorder 09/10/24 Unknown History sulfamethoxazole 800 1 tab PO .COMPLEX infection 09/10/24 09/12/24 History mg-trimethoprim 160 mg tablet melatonin 3 mg tablet 3 mg PO QHS PRN PRN Insomnia #0 09/14/24 Unknown Rx tabs menthol 0.44 %-zinc oxide 20.6 % 1 applic topical BID affected 09/14/24 09/14/24 Rx topical ointment (Calmoseptine) areas #0 grams nystatin 100,000 unit/gram topical 1 applic topical BID moisture in 09/14/24 09/14/24 Rx powder (Nyamyc) folds #0 grams pantoprazole 40 mg tablet,delayed 40 mg PO BID GERD #1 TAB 09/14/24 Unknown Rx release (Protonix) sucralfate 1 gram tablet (Carafate) 1 g PO 4X/DAY antacid #1 TAB 09/14/24 Unknown Rx Allergy/AdvReac Type Severity Reaction Status Date / Time adhesive tape Allergy Rash Verified 09/15/24 15:23 aspirin AdvReac Upset Verified 09/15/24 15:23 Stomach Family History Father , @ 75 Lung cancer Mother Colon cancer Heart disease CVA (cerebral vascular accident) Sudden cardiac Sister , at 60 Cancer Sister , at 45 Cancer of kidney Surgical History History of left knee replacement History of vaginal hysterectomy History of tonsillectomy History of colonoscopy h/o plantar fascitis surgery Social History household members: spouse Smoking Status: Never smoker alcohol intake: current details: Social substance use type: does not use what type of physical activity do you participate in: walking ROS Review of Systems ROS Unobtainable: due to mental status Physical Exam Narrative Patient only responds with okay to any and all questions. Const General Appearance: frail HEENT normocephalic Lymph Lymphatic: lymphadenopathy Lymphadenopathy Laterality: left (inguinal-large/firm) Resp normal respiratory effort Cardio Rate: regular rate GI soft to palpation, non-tender and non-distended GI Narrative: Left groin adenopathy on exam Extremity Extremity Narrative: Patient does have socks on her hands likely due to patient scratching her skin. Skin no jaundice Skin Narrative: Superficial skin wounds left thigh and left hip. Psych Mood & Affect: flat affect Lab / Micro Data 09/15/24 15:38 09/15/24 15:38 Labs: Laboratory Results - last 24 hr 09/15/24 15:38: Hemoglobin A1c 6.9 H 09/15/24 17:38: Total Creatine Kinase 106, Folate 10.40, TSH 1.710 09/15/24 21:20: Lactic Acid 3.7 H*, Vitamin B12 > 2000 H
[2024-09-16] MEDS: Enoxaparin 100 MG/ML Syringe 90 MG SC (20:22)
[2024-09-17 03:00] VITALS: BP 135/59; PULSE 79; RESP 18; TEMP 36.2; O2SAT 98
[2024-09-17 04:28] LABS: Absolute Lymphocyte Count 0.62 X10^3/uL (0.83-4.51); Basophil# 0.07 X10^3/uL; Basophil% 0.4 % (0-1); Hemoglobin 10.4 g/dL (12.0-15.0); Lymphocyte # 0.62 X10^3/ul (0.83-4.51); Lymphocyte % 3.1 % (19-41); Mean Corp Hgb Conc 31.5 g/dL (32-36); Mean Corpuscular Hgb 28.9 pg (27.0-32.0); Mean Corpuscular Volume 91.7 fL (81-99); Mean Platelet Vol. 10.2 fl (6.2-12.0); Monocyte# 0.53 X10^3/uL; Monocyte% 2.7 % (0-10); NRBC Flagged by Analyzer 1.1 % (0-5); POSITIVE COUNT YES; Platelet Count 40 K/mm3 (150-450); RBC Distribution Width CV 15.1 % (11.6-14.6); RBC Distribution Width SD 49.5 fl (35.1-43.9)
[2024-09-17 04:35] LABS: Differential Indicated SCAN CRITERIA MET
--- NOTE | 2024-09-17 04:50 | CT_ITS ---
EXAM: CT Abdomen And Pelvis W/O Contrast Injection HISTORY: anuria residual barium from Swallow study on 09/12/24, hx htn, hyster, ks, dm TECHNIQUE: Routine protocol CT abdomen and pelvis. IV Contrast: None.. Oral contrast: None. RADIATION DOSAGE (If Supplied By Facility): CTDIvol = ( 18.07 ) mGy, DLP = ( 988.66 ) mGycm Individualized dose optimization techniques were used for this CT. COMPARISON: CT chest abdomen and pelvis 09/15/2024. LIMITATIONS: None. FINDINGS: LOWER CHEST: Dependent atelectasis in the lung bases with small bilateral pleural effusions, increased compared to the prior. Numerous small nodules again noted. Detail limited by motion. LIVER: Innumerable low-attenuation lesions throughout the liver, again noted. GALLBLADDER AND BILIARY TREE: Grossly unremarkable. PANCREAS: Grossly unremarkable. SPLEEN: Grossly unremarkable. ADRENAL GLANDS: Grossly unremarkable. KIDNEYS AND URETERS: Small calculus in the left kidney. No hydronephrosis. No hydronephrosis. PERITONEUM: No free air. No free fluid. BOWEL: Residual high-density contrast material throughout the colon from prior GI study. There is a 2 cm length linear tubular opaque object within the stomach, projecting into the lumen from the anterior wall, as on the prior. Small bowel is not dilated. No bowel obstruction. APPENDIX: Visualized and unremarkable. No evidence of acute appendicitis. VESSELS: Abdominal aorta is normal caliber. RETROPERITONEUM: Bulky enlarged lymph nodes periaortic, aortocaval, along the iliac chains to the pelvic sidewall bilaterally, greater on the left. Similar to the prior. Presacral stranding and soft tissue thickening appears increased compared to the prior although partially obscured by the artifact from dense contrast, as on the prior. REPRODUCTIVE ORGANS: Uterus is not identified URINARY BLADDER: Minimally distended. Prominent wall. Adjacent stranding. ABDOMINAL WALL: Bulky nodular mass left inguinal region presumed adenopathy, overall size is approximately 7 x 5.7 cm.. BONES: No acute abnormalities. CT/Abdomen/Pelvis without Cont IMPRESSION: 1. Overall no significant change compared to the prior study. 2. Diffuse urinary bladder wall thickening may be nondistention versus cystitis or other process. Left nephrolithiasis. No hydronephrosis. 3. Bulky retroperitoneal and pelvic and left inguinal adenopathy. Metastatic disease versus other process including lymphoma. 4. Innumerable liver lesions again noted and small pulmonary nodules. Presumed metastatic disease. 5. Linear object within stomach projecting from the anterior gastric wall, unchanged. 6. Increased presacral stranding and soft tissue thickening. Uncertain etiology may be inflammatory or related to adjacent adenopathy. Can also be seen with a subtle or occult nondisplaced sacral fracture, correlate for trauma. Electronically Signed: Lorri Haro MD at 6:37 EST ,
[2024-09-17 04:55] LABS: Anion Gap 10 (5-15); BUN 87 mg/dL (7-18); BUN/Creat Ratio 29.8 RATIO (10-20); Calcium,Total 8.7 mg/dL (8.5-10.1); Chloride 115 mmol/L (98-107); Creatinine, Serum 2.92 mg/dL (0.55-1.02); EST Glomerular Filtration Rate 17 mL/min (>60); Est Glom Filt Rate - Afr Amer 20 mL/min (>60); Estimated Creatinine Clearance 21.28 ml/min; Glucose 119 mg/dL (74-106); Potassium 5.2 mmol/L (3.5-5.1); Sodium Level 142 mmol/L (136-145)
[2024-09-17] MEDS: Piperacil/Tazobactam 3.375 GM in 0.9% Normal Saline (50mL MB+) 50 ML IV (05:27)
[2024-09-17 05:32] VITALS: BMI 28.5
[2024-09-17 05:36] LABS: Platelet Estimate MKD DEC (ADEQ); Red Cell Morphology NORM C+C NORMAL (NORM C&C)
[2024-09-17] MEDS: 0.9% Normal Saline (1000mL) 1,000 ML 100 ML IV (07:31)
[2024-09-17 08:36] LABS: Base Excess -14 mmol/L (-2 to +2); Bicarbonate 11.6 mmol/L (22-26); Blood Gas Specimen Type ART; Mode Not entered; O2 Delivery Device Not entered; PO2 75 mmHG (75-100); SITE R Brach; SO2 94 % (95-99); Total Carbon Dioxide 12 mmol/L; pCO2 21.6 mmHg (35-45); pH 7.34 (7.35-7.45)
[2024-09-17 08:58] VITALS: BP 130/61; PULSE 75; RESP 17; TEMP 36.5; O2SAT 98
[2024-09-17] MEDS: 0.9% Saline Lock 10 ML Syringe IV ×3 (09:12→17:37)
--- NOTE | 2024-09-17 09:28 | CASEMGMT ---
Physician spoke with patient's about Hospice and he was agreeable. SW met with patient's Antione. SW introduced self and role at [facility]. Antione confirmed he would like Hospice for his . SW explained how the process works. Antione was okay with [facility]. SW called Hospice with referral and also faxed over information. Susan Membreno IMPREGNATION OPERATOR Carlene
[2024-09-17] MEDS: Pantoprazole Sodium 40 MG in 0.9% Normal Saline (100mL MB+) 100 ML 330 MG IV (10:28)
[2024-09-17 11:12] VITALS: PULSE 80
[2024-09-17] MEDS: HYDROmorphone 0.5 MG/0.5 ML SYRINGE IV ×2 (11:12→17:37)
[2024-09-17 11:13] VITALS: PULSE 80
[2024-09-17] MEDS: Metoprolol Tartrate 5 MG/5 ML Vial 2.5 MG IV (11:13)
--- NOTE | 2024-09-17 13:51 | CASEMGMT ---
The hospice nurse is working on getting patient into the inpatient hospice unit. Susan Membreno EARRINGS FABRICATOR DAIN
[2024-09-17 14:40] LABS: Pathologist Review Reviewed
[2024-09-17 14:45] LABS: Pathologist Review Reviewed
--- NOTE | 2024-09-17 15:37 | PCM.DC.SUM ---
Providers Date of Admission: 09/15/24 Date of Discharge: 09/17/24 Primary Care Physician: Dr. Edd Arizmendi, Consultations 09/15/24 21:06 Consult: [employer] / Pulmonary Medicine Routine Consulting Provider: Intensivists/Pulmonary Med Reason for Consult: Sepsis with FUENTES and Metastatic Cancer. EMERGENT Consult: No MD Notified: Yes Date Notified: 09/16/24 Time Notified: 08:31 Method of Notification: Answering Service 09/16/24 01:15 Consult: Oncology/Hematology Routine Consulting Provider: [facility] Reason for Consult: Metastatic Cancer. EMERGENT Consult: No MD Notified: Yes Date Notified: 09/16/24 Time Notified: 13:50 Method of Notification: Answering Service 09/16/24 13:39 Consult: General Surgery Routine Consulting Provider: Pat Jama Reason for Consult: need for lymph node biopsy EMERGENT Consult: No MD Notified: Yes Date Notified: 09/16/24 Time Notified: 13:39 Method of Notification: Verbal 09/17/24 06:47 Consult: Onc/Wound/billboard mechanic Routine Comment: Reason for Consult:: multiple abrasions/open blisters 09/17/24 09:11 Consult: Hospice / Palliative Care Routine Consulting Provider: [facility] Reason for Consult: Metastatic Melanoma EMERGENT Consult: No MD Notified: Yes Date Notified: 09/17/24 Time Notified: 10:30 Method of Notification: Answering Service Comments:: by Social work Reason For Visit: palpitations Diagnosis Discharge Diagnosis (1) History of melanoma: Status: Acute Code(s): Z85.820 - Personal history of malignant melanoma of skin (2) Metastatic cancer: Status: Acute Code(s): C79.9 - Secondary malignant neoplasm of unspecified site Qualifiers: Area of secondary neoplastic involvement: unspecified site Qualified Code(s): C79.9 - Secondary malignant neoplasm of unspecified site (3) Inguinal lymphadenopathy: Status: Acute Code(s): R59.0 - Localized enlarged lymph nodes Medications at Discharge Home Medications clobetasol 0.05 % topical ointment 1 applic topical BID affected areas 09/10/24 menthol 0.44 %-zinc oxide 20.6 % topical ointment (Calmoseptine) 1 applic topical BID affected areas #0 grams 09/14/24 nystatin 100,000 unit/gram topical powder (Nyamyc) 1 applic topical BID moisture in folds #0 grams 09/14/24 glycopyrrolate 0.2 mg/mL injection solution 0.1 mg (0.5 mL) IV Q4H PRN Congestion #0 mL 09/17/24 hydromorphone (PF) 0.5 mg/0.5 mL injection syringe 0.5 mg (0.5 mL) IV Q2H PRN PRN Pain Score 1-10/SOB #0 mL 09/17/24 lorazepam 2 mg/mL injection solution 1 mg (0.5 mL) IV Q6H PRN PRN terminal agitation #0 mL 09/17/24 Hospital Course Procedures EKG and - (Chest x-ray/CT chest abdomen and pelvis/abdomen/pelvis CT) Summary of Care Provided Minutes Spent on Discharge: 40 Hospital Course: Mrs. Horton is a 74-year-old white female who presents emergency department [facility] on 09/15/2020 for for palpitations and tachycardia. Patient has remote history of melanoma diagnosed in 2021 has undergone treatment at [facility] under the direction of Dr. Martin. She was here initially from September through September 24 for generalized weakness and leukocytosis with a lactic acidosis. As she also was found to be in FUENTES suspected due to poor p.o. intake and hydration FUENTES patient located by a flare of her bullous pemphigoid. After admission here she was discharged to the transitional care unit from rehab. When she developed palpitations and tachycardia she was urgently sent emergency department for evaluation. At presentation she stated she could feel the same but was not clear at what time. She was also noted to be confused and was oriented only to self at that time. Vital signs on presentation showed temperature of 98, heart rate 172, blood pressure 165/44, respiratory rate was 22, and pulse ox was 98% on room air. CBC showed a white count of 25.4 with a left shift. Platelet count was 92,000 and trending down. Chemistry panel showed hyperkalemia with potassium of 5.3. Worsening serum creatinine up to 2.38 when at discharge it was 1.64, glucose of 212 and lactic acid of 6.7. She appeared to be markedly dehydrated. Troponin was normal x 2. CK was 106. Chest x-ray was unremarkable. CT of the chest abdomen pelvis showed multiple noncalcified nodules throughout the lungs compatible with metastatic disease, multiple low-density masses throughout the liver compatible with extensive metastatic disease and extensive lymphadenopathy in the retroperitoneum as well as left iliac and inguinal change which were suspected to be related to metastatic disease versus lymphoma. Initially the plan was for biopsy of one of the lymph nodes to assess for metastatic disease. General surgery was consulted and plan was for biopsy on 09/17/2024. Unfortunately her clinical status deteriorated and her labs reflected worsening renal function, worsening thrombocytopenia with a platelet count of 40,000 and worsening mental status. I had a long discussion with her with regards to overall prognosis if this was metastatic melanoma and his desire to pursue further workup. He indicated that he did not want to put her through any more pain and would like to pursue hospice at this time. I consulted hospice and the patient was evaluated by hospice on 09/17/2020 for an extensive to the [facility] for ongoing end-of-life care. Discharge diagnoses: A-fib with RVR Acute cystitis FUENTES Metastatic melanoma Failure to thrive Severe malnutrition Metabolic acidosis Leukocytosis Chronic anemia Hyperkalemia Lactic acidosis Oropharyngeal dysphagia metabolic/toxic encephalopathy Recent gastric ulcer with erosive esophagitis Essential hypertension Hyperlipidemia DM-2 Acute dehydration Thrombocytopenia Physical Exam Const alert; Negative for no apparent distress, average body habitus, no limitations, healthy appearing or well nourished Constitutional Narrative: Markedly confused, older, white female, lying in bed, at bedside, nursing at bedside, patient appears uncomfortable General Appearance: well kempt and well developed; Negative for cooperative or comfortable Orientation / Consciousness: awake; Negative for oriented to person, oriented to place or oriented to time Exam Limitations: altered mental status Nutritional Appearance: overweight HEENT normocephalic, head/scalp atraumatic and hearing grossly normal bilaterally HEENT Narrative: Mucous membranes are dry, dentition is poor Eyes Eyes Narrative: No scleral icterus Neck no lymphadenopathy and supple Neck Narrative: Trachea midline Resp normal respiratory effort, no retractions, no use of accessory muscles and clear to auscultation bilaterally Auscultation: Negative for crackles, rhonchi or wheezes Cardio regular rate, regular rhythm, S1 normal heart sound, S2 normal heart sound, no murmurs, no rub, no gallops and no clicks GI normal to inspection, nondistended, normoactive bowel sounds and soft to palpation GI Narrative: Diffuse tenderness Extremity Extremity Narrative: Trace bilateral upper extremity edema, no cyanosis or clubbing Skin No skin turgor normal and no jaundice Neuro No oriented x3, No CN's II-XII intact bilaterally, moves all extremities and no focal motor deficits Speech: Negative for speech normal Psych Negative for affect normal Weight / BMI Weight Weight: 92.6 kg Body Mass Index (BMI) 28.5 ABG / Lab / Microbiology Data 09/17/24 03:47 09/17/24 03:47 Laboratory: Laboratory Results - last 24 hr 09/15/24 15:38: Diff Path Review Reviewed 09/17/24 03:47: WBC 20.0 H, RBC 3.60 L, Hgb 10.4 L, Hct 33.0 L, MCV 91.7, MCH 28.9, MCHC 31.5 L, RDW Std Deviation 49.5 H, RDW Coeff of Natali 15.1 H, Plt Count 40 L*, MPV 10.2, Immature Gran % (Auto) 3.800 H, Neut % (Auto) 90.0 H, Lymph % (Auto) 3.1 L, Wayne % (Auto) 2.7, Eos % (Auto) 0.0, Baso % (Auto) 0.4, Absolute Neuts (auto) 18.0 H, Absolute Lymphs (auto) 0.62 L, Nucleated RBC % 1.1, Diff Path Review Reviewed, Platelet Estimate MKD DEC, RBC Morphology NORM C+C, Sodium 142, Potassium 5.2 H, Chloride 115 H, Carbon Dioxide 17.0 L, Anion Gap 10, BUN 87 H, Creatinine 2.92 H, Estim Creat Clear Calc 21.28, Est GFR (MDRD) Af Amer 20 L, Est GFR (MDRD) Non-Af 17 L, BUN/Creatinine Ratio 29.8 H, Glucose 119 H, Calcium 8.7 ABG: ABG 09/17/24 08:33 Specimen Type ART Sample Site R Brach pH 7.34 L Bicarbonate Actual 11.6 L Total CO2 12 Base Excess -14 L O2 Saturation 94 L O2 % 21.0 ABG pCO2 21.6 L ABG pO2 75 O2 Delivery Device Not entered Vent Mode Not entered Radiography Diagnostic Testing: Radiology Impression Abdomen/Pelvis CT 09/17/24 04:50 IMPRESSION: 1. Overall no significant change compared to the prior study. 2. Diffuse urinary bladder wall thickening may be nondistention versus cystitis or other process. Left nephrolithiasis. No hydronephrosis. 3. Bulky retroperitoneal and pelvic and left inguinal adenopathy. Metastatic disease versus other process including lymphoma. 4. Innumerable liver lesions again noted and small pulmonary nodules. Presumed metastatic disease. 5. Linear object within stomach projecting from the anterior gastric wall, unchanged. 6. Increased presacral stranding and soft tissue thickening. Uncertain etiology may be inflammatory or related to adjacent adenopathy. Can also be seen with a subtle or occult nondisplaced sacral fracture, correlate for trauma. Electronically Signed: Lorri Haro MD at 6:37 EST , D/C Instructions Discharge Diet: No restrictions DC O2, CPAP, BIPAP Needs Additional Home O2 Discharge instructions: No DC home with Oxygen: No Meaningful Use Info Meaningful Use Meaningful Use Diagnoses (Choose all that apply): None applicable Ischemic Stroke Statin Dosing Therapy Reference: STATIN DOSE THERAPY REFERENCE: * Patients > 75 years receive moderate or high dose statin therapy. * Patients 75 years or YOUNGER should receive HIGH intensity statin dose unless contraindicated. You will be required to document reason for non-treatment if statin daily dose does not meet guidelines. HIGH DOSE STATIN THERAPY DAILY Atorvastatin > than or = to 40 mg Rosuvastatin > than or = to 20 mg Amlodipine + Atorvastatin > than or = to 2.5/40 mg Ezetimibe + Simvastatin 10/80 mg Simvastatin 80mg Discharge Plan Admission Admit Date/Time: 09/15/24 20:00 Primary Reason for Your Visit: Palpitations/tachycardia Attending Provider: Sujatha Mckenna Primary Care Provider: Edd Arizmendi Consulting Providers: Gokul Desai; Genaro Villatoro; Clayton Li; José Moser; Rodrick Scanlon; Rip Cannon; Gokul Holt; Brennan Momni; Lele Wiggins; Breonna Alvarez; Maxime Franks; Jah Diaz; Simon Dunham; Anan Terrell; Leigh Werner; Abrahan Stevenson; Pineda Haley; Demetrio Ray; Cathi,Bryce; Tammie Sheehan; Travis Hernandez; Chip Panchal; Waldo Carter; Pat Jama; Celso Chua; Josef Martin; Tameka Liu; Jarred Singh; Gutierrez Tapia; Emerson Ye; Fan Guadarrama; Jesus Jordan; Gokul De Paz; Ángela Pelayo; Marivel Albright; Dang Moreno; Dalia Garcia NP; Greta Guadarrama Discharge Orders/Prescriptions Prescriptions: New glycopyrrolate 0.2 mg/mL Solution 0.1 mg IV Q4H PRN (Reason: Congestion) Qty: 0 0RF hydromorphone (PF) 0.5 mg/0.5 mL Syringe 0.5 mg IV Q2H PRN PRN (Reason: Pain Score 1-10/SOB) Qty: 0 0RF lorazepam 2 mg/mL Solution 1 mg IV Q6H PRN PRN (Reason: terminal agitation) Qty: 0 0RF Continued clobetasol 0.05 % ointment 1 applic topical BID nystatin [Nyamyc] 100,000 unit/gram Powder 1 applic topical BID Qty: 0 0RF Protocol: *Topical Application Instructions APPLICATION INSTRUCTIONS: apply under breasts and abdominal folds menthol-zinc oxide [Calmoseptine] 0.44-20.6 % Ointment 1 applic topical BID Qty: 0 0RF Protocol: *Topical Application Instructions APPLICATION INSTRUCTIONS: apply to buttocks Discontinued (DME) blood sugar diagnostic Strip See Rx Instructions .ROUTE .MEDSUPPLY Qty: 10 Patient Comments: TEST BLOOD SUGAR(S) 1-2 TIMES DAILY. DX: 250.0. INSULIN: NO Rx Instructions: As directed (DME) lancets 33 gauge misc See Rx Instructions .ROUTE .MEDSUPPLY Qty: 100 Patient Comments: TEST BLOOD SUGAR(S) 1-2 DAILY. DX: 250.0. INSULIN: NO Rx Instructions: As directed atorvastatin 10 MG tablet 10 mg PO QHS prednisone 10 mg tablet 10 mg PO DAILY Patient Comments: PLEASE SEE ATTACHED FOR DETAILED DIRECTIONS. PT ON DAY 7 OF 2.5 TABLETS OF 09/10/24 doxycycline monohydrate 100 mg capsule 100 mg PO BID sulfamethoxazole-trimethoprim 800-160 mg tablet 1 tab PO .COMPLEX Patient Comments: unsure if pt taking, not on med list Rx Instructions: 1 TAB orally TUESDAY, TUESDAY, AND TUESDAY; calcium carbonate-vitamin D3 1,000 mg-20 mcg (800 unit) tablet 1 tab PO DAILY cholecalciferol (vitamin D3) [Vitamin D3] 50 mcg (2,000 unit) tablet 50 mcg PO DAILY ondansetron 8 mg tablet,disintegrating 8 mg PO Q8H PRN PRN (Reason: nausea/vomiting) sertraline 50 mg tablet 50 mg PO QHS melatonin 3 mg Tablet 3 mg PO QHS PRN PRN (Reason: Insomnia) Qty: 0 0RF pantoprazole [Protonix] 40 mg tablet,delayed release (DR/EC) 40 mg PO BID Qty: 1 0RF sucralfate [Carafate] 1 gram tablet 1 g PO 4X/DAY Qty: 1 0RF Rx Instructions: Use for 4 weeks Referrals / Follow Up: Edd Arizmendi DO [Primary Care Provider] - Disposition Disposition (needs filled in before D/C Order can be placed): Hospice in Medical Facility Charges/Coding Visit Charges Inpatient E&M: 33799 Disch Hosp >30min
--- NOTE | 2024-09-17 15:48 | PHA.DC.MR.R ---
Pharmacy CT Med Reconciliation Pharmacy Service has performed discharge medication reconciliation for this patient. The patient's discharge medication list was reviewed for discrepancies and discrepancies were resolved. Medications at Discharge Home Medications clobetasol 0.05 % topical ointment 1 applic topical BID affected areas 09/10/24 menthol 0.44 %-zinc oxide 20.6 % topical ointment (Calmoseptine) 1 applic topical BID affected areas #0 grams 09/14/24 nystatin 100,000 unit/gram topical powder (Nyamyc) 1 applic topical BID moisture in folds #0 grams 09/14/24 glycopyrrolate 0.2 mg/mL injection solution 0.1 mg (0.5 mL) IV Q4H PRN Congestion #0 mL 09/17/24 hydromorphone (PF) 0.5 mg/0.5 mL injection syringe 0.5 mg (0.5 mL) IV Q2H PRN PRN Pain Score 1-10/SOB #0 mL 09/17/24 lorazepam 2 mg/mL injection solution 1 mg (0.5 mL) IV Q6H PRN PRN terminal agitation #0 mL 09/17/24
--- NOTE | 2024-09-17 16:36 | NURSING ---
report called to Inpatient Hospice at [facility] to ABRAM Jerry
== END 2024-09-17 17:50 | disposition hospice, inpatient (51) | DRG 871 ==
LOC: ED 20:18 → ICU 09-16 07:18 → PCU 09-16 13:37
PROVIDERS: Internal Medicine; Admitting Provider Internal Medicine; Emergency Provider Emergency Medicine; PCP Student in an Organized Health Care Education/Training Program; Visit Provider Internal Medicine
DX: A41.9 Sepsis, unspecified organism (principal); G93.41 Metabolic encephalopathy; E43 Unspecified severe protein-calorie malnutrition; C78.7 Secondary malignant neoplasm of liver and intrahepatic bile duct; C77.9 Secondary and unspecified malignant neoplasm of lymph node, unspecified; E87.20 Acidosis, unspecified; N17.9 Acute kidney failure, unspecified; N30.00 Acute cystitis without hematuria; R13.12 Dysphagia, oropharyngeal phase; D69.6 Thrombocytopenia, unspecified; E11.9 Type 2 diabetes mellitus without complications; F32.A Depression, unspecified; D64.9 Anemia, unspecified; I48.91 Unspecified atrial fibrillation; E78.00 Pure hypercholesterolemia, unspecified; K21.9 Gastro-esophageal reflux disease without esophagitis; E66.3 Overweight; Z79.899 Other long term (current) drug therapy; Z68.28 Body mass index [BMI] 28.0-28.9, adult
CPT/HCPCS: 36415; 36600; 71045; 71250; 74176; 80048; 81001; 82550; 82607; 82746; 82803; 83036; 83605; 84443; 84484; 85025; 87040; 92610; 93005; 97802; 99285; J2020; J7030; J7040; P9612; A4216